=== PATIENT | female | born 1940 | race Hispanic/Latino ===

== ENCOUNTER → 2017-12-12 | Outpatient (CLI) | payer MEDICARE ==
[~2017-12-12] MED LIST: GLYBURID-METFO1 EAC3 MT; Z.0.ALLOPURINOL100 M MT; Z.0.JANUVIA100 MG MT; Z.0.LISINOPRIL40 MG MT; Z.0.SIMVASTATIN20 MG MT; [UNRECOGNIZED DRUG - OTHER] MT
--- NOTE | 2017-12-12 12:47 | Diagnostic Imaging Report ---
PROCEDURE: Frontal and lateral views of the chest. COMPARISON: 10/08/17 INDICATIONS: PNEUMONIA, COUGH FINDINGS: Lines/tubes: None. Lungs: The lungs are well inflated. Increased interstitial markings. Pleura: There is no pleural effusion or pneumothorax. Heart and mediastinum: The heart and the mediastinum are normal. Aorta is calcified and mildly tortuous. Bones: No acute bony abnormality. Degenerative changes of spine. IMPRESSION: Increased interstitial lung markings, probably chronic/fibrotic changes. Underlying infiltrate especially in the lower lung babb cannot be entirely excluded. Dictated by: Jv Moon M.D. on 12/12/2017 at 12:57 Electronically approved by: Jv Moon M.D. on 12/12/2017 at 12:57
== END ==
LOC: RAD 12:07
PROVIDERS: ATTEND Internal Medicine
DX: J18.9 Pneumonia, unspecified organism (principal)
CPT/HCPCS: 71046

== ENCOUNTER → 2018-02-19 | Outpatient (CLI) | payer MEDICARE ==
--- NOTE | 2018-02-19 13:48 | Diagnostic Imaging Report ---
PROCEDURE:X-RAY MODIFIED BARIUM SWALLOW COMPARISON:None. INDICATIONS:Dysphagia, possible aspiration and coughing DISCUSSION:Fluoroscopic examination was performed in conjunction with speech pathology, during swallowing of a variety of thin and thick liquid consistencies. The Radiologist was in attendance. Multiple episodes of coughing were encountered. There is some pooling in the vallecula. No penetration or aspiration was noted. Please see the full report provided by the Speech Pathologist. Fluoroscopy time: 1.5 minutes Total dose: 7.30 mGy CONCLUSION:No penetration or aspiration. Please see the report from speech pathology for complete details. Mamadou Randolph D.O. Dictated by: Mamadou Randolph D.O. on 02/19/2018 at 13:49 Electronically approved by: Mamadou Randolph D.O. on 02/19/2018 at 13:49
== END ==
LOC: DX 12:21
PROVIDERS: ATTEND Internal Medicine Critical Care Medicine
DX: R05 Cough (principal); R06.00 Dyspnea, unspecified; R13.10 Dysphagia, unspecified
CPT/HCPCS: 74230; 92611; G8996; G8997; G8998

== ENCOUNTER → 2018-04-12 | Outpatient (CLI) | payer MEDICARE ==
--- NOTE | 2018-04-12 12:59 | Diagnostic Imaging Report ---
PROCEDURE: Frontal and lateral views of the chest. COMPARISON: 12/12/2017 INDICATIONS: COUGH, PNEUMONIA, SHORTNESS OF BREATH FINDINGS: Lines/tubes: None. Lungs: Diffuse interstitial opacities, particularly in the lung bases, unchanged. Lung volumes are low. Pleura: There is no pleural effusion or pneumothorax. Heart and mediastinum: The heart and the mediastinum are normal. Bones: No acute bony abnormality. IMPRESSION: Basilar predominant interstitial opacities with low lung volumes. The finding suggest fibrosis. This patient may benefit from a high resolution CT of the chest. No new consolidation. Dictated by: Presley Benitez M.D. on 04/12/2018 at 13:02 Electronically approved by: Presley Benitez M.D. on 04/12/2018 at 13:02
== END ==
LOC: RAD 11:43
PROVIDERS: ATTEND Internal Medicine
DX: J18.9 Pneumonia, unspecified organism (principal)
CPT/HCPCS: 71046

== ENCOUNTER → 2018-05-03 | Outpatient (CLI) | payer MEDICARE ==
--- NOTE | 2018-05-03 09:57 | Diagnostic Imaging Report ---
EXAMINATION: MRI of the brain without contrast. HISTORY: Memory loss COMPARISON: Head CT on 10/08/2017 TECHNIQUE: Sagittal T1 ultrathin slice with coronal and axial reformations; axial DWI, T2, FLAIR, T2 gradient echo. IMAGE QUALITY: Adequate. FINDINGS: DEMENTIA: Structural lesion: No intra- or extra-axial mass or hematoma. Ventricles: No hydrocephalus. Estrada matter signal intensity: Cortex: Unremarkable. Basal ganglia: Unremarkable. Thalami: Unremarkable. White matter signal intensity: Cerebral: Few scattered white matter T2 and FLAIR hyperintense foci, most likely nonspecific unremarkable ischemic changes, within normal limits for patient's age Brainstem: Unremarkable. Mamillary bodies/fornices and hippocampi: No atrophy or abnormal signal. Microhemorrhages: None. Atrophy: Global: Symmetric. Focal: Slightly disproportion bilateral parietal cortical volume loss. Otherwise no disproportionate lobar, hippocampal, mesencephalic, pontine, or cerebellar atrophy. Vessels: Expected flow voids present in the major arteries and dural sinuses. Sella: Unremarkable. OTHER: Subarachnoid spaces: No abnormal signal intensity. Foramen magnum: Unremarkable. Skull: Unremarkable. Paranasal / mastoid sinuses: Persistent opacification of the right maxillary sinus, otherwise clear IMPRESSION: 1. Mild age appropriate chronic microvascular ischemic changes. 2. Slightly disproportionate bilateral parietal cortical volume loss. Signed by: Dr. Anaid Goel M.D. on 05/03/2018 9:53 AM
--- NOTE | 2018-05-03 10:20 | Diagnostic Imaging Report ---
PROCEDURE: CT CHEST WITHOUT CONTRAST CT scan of the chest WITHOUT intravenous contrast, using standard protocol. TECHNIQUE: The chest was scanned utilizing a multidetector helical scanner from the apex to the level of the adrenal glands. No IV contrast was administered because of referring physician request. Coronal and sagittal multiplanar reformations were obtained. COMPARISON: None. INDICATIONS: LOWER LOBE INTERSTITIAL INFILTRATES FINDINGS: Lines/tubes: None. Lungs and Airways: Juxtapleural predominant groundglass opacities, reticulation, and interlobular septal thickening most prominent in the lung bases. No honeycombing. Mild associated bronchiectasis. Pleura: The pleural spaces are clear. Heart and mediastinum: Visualized portions of the thyroid gland appear normal. Scattered mildly prominent hilar and mediastinal lymph nodes without overt lymphadenopathy. No axillary lymphadenopathy. No ectasia or aneurysmal dilatation of the thoracic aorta. Atherosclerotic calcification of the aorta, great vessel origins, and [place] coronary arteries. No pericardial effusion. Small hiatal hernia. Soft tissues: No focal soft tissue abnormalities. Abdomen: Visualized portions of the liver, spleen, pancreas, adrenals, and kidneys are notable only for an exophytic lesion projecting from the upper pole of the left kidney, average internal attenuation 34 Hounsfield units. Bones: No osseous destructive lesions. Multilevel degenerative disc changes of the thoracic spine. Bilateral cervical ribs. IMPRESSION: Pulmonary findings compatible with nonspecific interstitial pneumonia (NSIP). This may be idiopathic, or associated with collagen vascular disease or drug toxicities (amiodarone, bleomycin). Atherosclerotic vascular disease. Mildly hyperattenuating partially visualized exophytic lesion projecting from the left kidney may represent a hyperdense/proteinaceous cyst or solid mass. Further evaluation with renal ultrasound is suggested. Dictated by: Jim Corey M.D. on 05/03/2018 at 10:23 Electronically approved by: Jim Corey M.D. on 05/03/2018 at 10:23
== END ==
LOC: MRI 08:37
PROVIDERS: ATTEND Internal Medicine Critical Care Medicine
DX: F01.50 Vascular dementia, unspecified severity, without behavioral disturbance, psychotic disturbance, mood disturbance, and anxiety (principal); R91.8 Other nonspecific abnormal finding of lung field
CPT/HCPCS: 70551; 71250

== ENCOUNTER → 2018-05-15 | Outpatient (CLI) | payer MEDICARE ==
--- NOTE | 2018-05-15 15:30 | Diagnostic Imaging Report ---
PROCEDURE:US RETROPERITONEAL ( KIDNEY ). COMPARISON:None. INDICATIONS:CHRONIC KIDNEY DISEASE STAGE II TECHNIQUE: Nunn-scale and color sonographic images of the bilateral kidneys and bladder where obtained in transverse and longitudinal planes. FINDINGS: Bilateral Kidneys: The right kidney measures up to 10.9 cm and the left kidney measures up to 10.4 cm. No evidence of hydronephrosis or solid mass lesions. The renal echogenicity is unremarkable. No evidence of renal stone. Bladder: No stone is visualized. Right ureteral jet is present. Left ureteral jet is not well demonstrated. Residual urine is seen post voiding per technologist report. CONCLUSION: Unremarkable renal ultrasound. No evidence of hydronephrosis or stone. Residual urine seen in the bladder post voiding per technologist report. Dictated by: JOAQUIM LOZOYA M.D. on 05/15/2018 at 15:35 Electronically approved by: JOAQUIM LOZOYA M.D. on 05/15/2018 at 15:35
--- NOTE | 2018-05-15 15:44 | Diagnostic Imaging Report ---
PROCEDURE:Urinary Bladder Ultrasound COMPARISON:None. INDICATIONS:CHRONIC KIDNEY DISEASE STAGE II CONCLUSION: Please refer to "US RETROPERITONEAL" performed at the same date and time for full dictated report. Dictated by: JOAQUIM LOZOYA M.D. on 05/15/2018 at 15:48 Electronically approved by: JOAQUIM LOZOYA M.D. on 05/15/2018 at 15:48
== END ==
LOC: US 14:05
PROVIDERS: ATTEND Internal Medicine Nephrology
DX: N18.2 Chronic kidney disease, stage 2 (mild) (principal)
CPT/HCPCS: 76770; 76857

== ENCOUNTER → 2018-07-24 | Outpatient (CLI) | payer MEDICARE ==
--- NOTE | 2018-07-24 18:21 | Diagnostic Imaging Report ---
CT CHEST WITHOUT CONTRAST HISTORY: Interstitial lung disease, shortness of breath, cough, history of pneumonia COMPARISON: None available TECHNIQUE: CT scan of the chest WITHOUT intravenous contrast, using standard protocol. The chest was scanned utilizing a multidetector helical scanner from the apex to the level of the adrenal glands. Coronal and sagittal reformats are provided. IV CONTRAST: None, which limits evaluation of the vascular structures, mediastinum and soft tissues. RADIATION DOSE: Total DLP: 511.62 mGy*cm Dose modulation, iterative reconstruction, and/or weight based adjustment of the mA/kV was utilized to reduce the radiation dose to as low as reasonably achievable. COMPLICATIONS: None FINDINGS: Lines/tubes: None. Lungs and Airways: Diffusely increased pulmonary interstitial markings, predominantly in a peripheral distribution. Mild bronchiectasis. A few scattered areas of peripheral as a continuation. No evidence of airspace consolidation, honeycombing, suspicious nodules or cysts. Minimal dependent atelectasis. Pleura: The pleural spaces are clear. Heart and mediastinum: The thyroid gland is normal. The heart and pericardium are within normal limits. Abdomen: Limited nonenhanced views of the upper abdomen. A small hiatal hernia. Mild diffuse pancreatic parenchymal atrophy. A 1.3 cm soft tissue density posterior to the spleen, compatible with a small splenule. Lymph nodes: Multiple nonspecific subcentimeter lymph nodes without pathologic enlargement. Vessels: Scattered atherosclerotic vascular calcifications, including the coronary arteries. Bones: No acute osseous lesion. Accentuation of the thoracic kyphosis. Multilevel anterior flowing syndesmophytes with relative preservation of the disc spaces, compatible with DISH (Diffuse idiopathic skeletal hyperostosis). Soft tissues: Otherwise, unremarkable. IMPRESSION: 1. Fibrotic lung changes with mild bronchiectasis and areas of mosaic attenuation. This can be better characterized via a follow-up dedicated CT of the chest without contrast (high resolution/interstitial lung protocol). 2. Coronary atherosclerosis. 3. Small hiatal hernia. Signed by: Dr. Travis Andrews D.O., M.M.M. on 07/24/2018 6:16 PM
== END ==
LOC: CT 16:59
PROVIDERS: ATTEND Internal Medicine Critical Care Medicine
DX: J84.9 Interstitial pulmonary disease, unspecified (principal)
CPT/HCPCS: 71250

== ENCOUNTER → 2019-07-25 | Outpatient (CLI) | payer MEDICARE ==
--- NOTE | 2019-07-25 14:48 | Diagnostic Imaging Report ---
Ultrasound of the Kidneys, 07/25/2019. Clinical History: Chronic kidney disease stage II. Discussion: Sonographic evaluation of the kidneys is performed. Pre and post void images of the bladder were also obtained. Right kidney: 10.1 cm in length, normal in size, with cortical thickness of 1.6 cm. Normal cortical echogenicity. No mass. No shadowing calculus. No hydronephrosis. Left kidney: 10.6 cm in length, normal in size, with cortical thickness of 1.4 cm. Normal cortical echogenicity. No mass. No shadowing calculus. No hydronephrosis. Limited Doppler evaluation demonstrates normal color Doppler flow within bilateral renal liliane. Fluid: No perinephric fluid. Bladder: Bilateral ureteral jets are visualized. Prevoid bladder volume is 122.1 mL. Post void bladder volume is 46.8 mL. IMPRESSION: Normal ultrasound of the kidneys and bladder. Signed by: Aston Hodge MD on 07/25/2019 2:45 PM
== END ==
LOC: US 13:28
PROVIDERS: ATTEND Internal Medicine Nephrology
DX: N18.2 Chronic kidney disease, stage 2 (mild) (principal)
CPT/HCPCS: 76770; 76857

== ENCOUNTER → 2019-10-17 | Day surgery (SDC) | payer MEDICARE ==
[~2019-10-17] MED LIST changes: +ALBUTEROL0.63 MG/3 NEB; +AMLODIPINE BESYL5 MG PO; +AZATHIOPRINE50 MG PO; +ESBRIET801 MG PO; +HYOSCYAMINE 0.125 MG TAB ONE; +LOSARTAN POTASS25 MG PO; +METFORMIN HCL500 MG PO; +METOPROLOL SUCC50 MG PO; +OMEPRAZOLE40 MG PO; +PREDNISONE5 MG PO; +PROPOFOL IV EMULSION 10 MG/ML 20 ML VIAL ONE; +PROPOFOL IV EMULSION 10 MG/ML 50 ML VIAL ONE; +SYMBICORT 16010.2 GM INH; +TESSALON PERLE100 MG PO; +VITAMIN B12 INJ; -Z.0.JANUVIA100 MG MT; +Z.0.JANUVIA100 MG PO
[2019-10-17 20:00] VITALS: BP 133/70
[2019-10-17 21:36] LABS: WBC,FECAL (FECAL LACTOFERRIN) NEGATIVE (NEGATIVE)
--- NOTE | 2019-10-18 01:20 | Operative Report ---
DATE OF PROCEDURE: 10/17/2019 SURGEON: Chriss Mendoza MD PROCEDURE: EGD with biopsies and colonoscopy with biopsies. ADDITIONAL REFERRING PHYSICIAN: Dr. Javan Pappas. INDICATIONS FOR EGD: Acid reflux. INDICATIONS COLONOSCOPY: Chronic diarrhea and weight loss. MEDICATIONS: The patient was done under MAC, please see anesthesiologist's note. PROCEDURE IN DETAIL: With the patient in left lateral decubitus position, a flexible fiberoptic Olympus gastroscope was introduced into the esophagus under direct visualization without any difficulty. There was some patchy erythema noted in distal esophagus. The scope was then advanced with ease into the stomach traversing a moderate-sized hiatal hernia. Mucosa overlying the antrum and the body revealed some patchy areas of erythema and low-grade to moderate edema and biopsies were obtained and sent to stain for H pylori. There was some mild atrophic changes in the distal body of the stomach and that was biopsied to rule out atrophic gastritis. The pylorus was of normal contour and shape, and was intubated with ease and the scope was advanced all the way to the second portion of the duodenum. The scope was then withdrawn slowly. Mucosa overlying the proximal second portion and duodenal bulb grossly appeared to be within normal limits. Biopsies were obtained to rule out sprue. The scope was then withdrawn back into the stomach and retroflexed, and mucosa overlying the fundus appeared to be within normal limits. The previously described hiatal hernia was also noted in the retroflexed position. The scope was then straightened out and it was subsequently withdrawn and the patient tolerated procedure well. IMPRESSION: 1. Distal esophagitis, mild. 2. Moderate-sized hiatal hernia. 3. Gastritis, biopsied. Biopsies sent to stain for H pylori. 4. Rule out sprue. PLAN: Follow up histology. Increase omeprazole to 40 mg one p.o. a.c. b.i.d. The patient was then turned around after adequate lubrication of the anal canal. A flexible fiberoptic Olympus colonoscope was inserted into the rectum with ease and advanced all the way to the cecum. Mucosa overlying the cecum appeared to be within normal limits. The ileocecal valve was intubated and the scope was advanced into the terminal ileum. Biopsies were obtained. The scope was then withdrawn back into the colon. It was then withdrawn slowly and mucosa overlying the ascending, transverse, descending, sigmoid, and rectum revealed some patchy mild inflammatory changes. Random biopsies were obtained. Also, there was some scattered diverticular disease noted. The scope was then retroflexed into the distal rectum and moderate-sized internal hemorrhoids were noted, none of which was actively bleeding. The scope was then straightened out and it was subsequently withdrawn. After securing an adequate stool specimen, that was sent for the appropriate stool studies. The patient tolerated the procedure well. IMPRESSION: 1. Mild patchy colitis, random biopsies obtained. 2. Diverticulosis. 3. Internal hemorrhoids, none actively bleeding. PLAN: Follow up histology. Follow up stool studies. Initiate Bentyl 20 mg one p.o. t.i.d. Chriss Mendoza MD [facility] [place] /[id number] cc: Javan Cabrera MD
[2019-10-18 14:54] LABS: C DIFFICILE TOXIN A&B AMP PROB NEGATIVE (NEGATIVE)
--- OUTSIDE RECORDS SUMMARY | 2019-10-24 11:52 | XMS REPORT ---
Author Author [facility] Address Unknown Phone Unavailable Care Team Providers Care District Captain Name Role Phone MICHAEL ARCOS Unavailable Unavailable VIVIOTTONIEL SYED Unavailable Unavailable ORAHOOD, MONTE Unavailable Unavailable SWEET, A LAIRD Unavailable Unavailable Payers Payer Name Policy Type Policy Number Effective Date Expiration Date Problems This patient has no known problems. Allergies, Adverse Reactions, Alerts Allergy Name Allergy Type Status Severity Reaction(s) Onset Date Inactive Date Treating Clinician Comments No Known Allergies DA Active U 2013-05-26 00:00:00 Medications This patient has no known medications. Encounters Start Date/Time End Date/Time Encounter Type Admission Type Attending Clinicians Care Facility Care Department Encounter ID 2019-04-15 09:06:00 2019-04-15 09:06:00 Outpatient [facility] [id number] Results Test Description Test Time Test Comments Text Results Atomic Results Result Comments US RENAL RETROPERITONEAL COMP 2019-07-25 14:42:00 [facility] [address] [place] [address] Patient Name: VEDA ADAMS MR #: [id number] : 1940 Age/Sex: 79/F Req #: [id number] Adm Physician: Ordered by: MICHAEL ARCOS MD Report #: [id number] Location: US Room/Bed: Procedure: [id number] US/US RENAL RETROPERITONEAL COMP Exam Date: 07/25/19 Exam Time: 1356 REPORT STATUS: Signed Ultrasound of the Kidneys, 07/25/2019. Clinical History: Chronic kidney disease stage II. Discussion: Sonographic evaluation of the kidneys is performed. Pre and post void images of the bladder were also obtained. Right kidney: 10.1 cm in length, normal in size, with cortical thickness of 1.6 cm. Normal cortical echogenicity. No mass. No shadowing calculus. No hydronephrosis. Left kidney: 10.6 cm in length, normal in size, with cortical thickness of 1.4 cm. Normal cortical echogenicity. No mass. No shadowing calculus. No hydronephrosis. Limited Doppler evaluation demonstrates normal color Doppler flow within bilateral renal liliane. Fluid: No perinephric fluid. Bladder: Bilateral ureteral jets are visualized. Prevoid bladder volume is 122.1 mL. Post void bladder volume is 46.8 mL. IMPRESSION: Normal ultrasound of the kidneys and bladder. Signed by: Aston Ortiz MD on 07/25/2019 2:45 PM Dictated By: ASTON ORTIZ MD 1445 Transcribed By: RAULITO on 07/25/19 1445 COPY TO: MICHAEL ARCOS MD US PELVIC (NON OB) MELGAR OR F/U 2019-07-25 14:42:00 [place] [address] Patient Name: VEDA ADAMS MR #: [id number] : 1940 Age/Sex: 79/F Req #: [id number] Adm Physician: Ordered by: MICHAEL ARCOS MD Report #: [id number] Location: US Room/Bed: Procedure: [id number] US/US PELVIC (NON OB) MELGAR OR F/U Exam Date: 07/25/19 Exam Time: 1356 REPORT STATUS: Signed Ultrasound of the Kidneys, 07/25/2019. Clinical History: Chronic kidney disease stage II. Discussion: Sonographic evaluation of the kidneys is performed. Pre and post void images of the bladder were also obtained. Right kidney: 10.1 cm in length, normal in size, with cortical thickness of 1.6 cm. Normal cortical echogenicity. No mass. No shadowing calculus. No hydronephrosis. Left kidney: 10.6 cm in length, normal in size, with cortical thickness of 1.4 cm. Normal cortical echogenicity. No mass. No shadowing calculus. No hydronephrosis. Limited Doppler evaluation demonstrates normal color Doppler flow within bilateral renal liliane. Fluid: No perinephric fluid. Bladder: Bilateral ureteral jets are visualized. Prevoid bladder volume is 122.1 mL. Post void bladder volume is 46.8 mL. IMPRESSION: Normal ultrasound of the kidneys and bladder. Signed by: Aston Ortiz MD on 07/25/2019 2:45 PM Dictated By: ASTON ORTIZ MD 2938 Transcribed By: RAULITO on 07/25/19 3052 COPY TO: MICHAEL ARCOS MD LUNG,BIOPSY 2018-08-21 14:43:00 RUN DATE: 08/21/18 [facility] PAGE 1 RUN TIME: 1444 Specimen Inquiry RUN USER: INTERFACE PATIENT: VEDA ADAMS [place] [facility] [place] #: [id number] AGE/SX: 78/F ROOM: RE08/19/18[facility] DR: Ottoniel Enamorado MD : [birth year] BED: DIS: STATUS: [facility] TLOC: SPEC #: [id number] RECD: 08/19/18 STATUS: ARVIND BURCIAGA #: [id number] MARILIN: 08/19/18 [facility] DR: Ottoniel Enamorado MD ENTERED: 08/19/18 SP TYPE: LUNG BX OTHR DR: Sapna Cabrera MD ORDERED: GROSS COPIES TO: Ottoniel Enamorado MD [address] [place] [address] Sapna Cabrera MD [address] [place] [address] PROCEDURES: GROSS (08/19/18) TISSUES: RIGHT LOWER LOBE OF LUNG, NOS - BX CLINICAL HISTORY COLLECTION DATE: 08/19/18 PULMONARY FIBROSIS COMMENT Multiple levels of the tissue are examined. Sections show small biopsies of bronchial mucosa with an intact epithelial lining that is unremarkable in appearance. A small amount of alveolar parenchyma is present s howing mildly increased macrophages within the alveolar spaces. Significantly increased acute or chronic inflammation is not noted. Although significant fibrosis is not noted, interpretation is limited by the small amount of alveolar parenchyma present in the tissue sample. Features diagnostic of malignancy are not identified. Clinical correlation is recommended. Intradepartmental consultation: DMW FINAL DIAGNOSIS Lung, right lower lobe, endobronchial biopsy: BRONCHIAL MUCOSA WITH FOCALLY INCREASED SMOOTH MUSCLE FIBERS SMALL AREA OF ALVEOLAR PARENCHYMA WITH MILDLY INCREASED MACROPHAGES IN ALVEOLAR SPACES MINIMAL CHRONIC INFLAMMATION PRESENT NO ACUTE INFLAMMATORY INFILTRATE PRESENT CONTINUED ON NEXT PAGE RUN DATE: 08/21/18 [facility] PAGE 2 RUN TIME: 1444 Specimen Inquiry RUN USER: INTERFACE SPEC #: [id number] PATIENT: VEDA ADAMS #[id number] (Continued) FINAL DIAGNOSIS (Continued) NO GRANULOMAS OR AREAS OF NECROSIS PRESENT NEGATIVE FOR MALIGNANCY RRB/sm D 90615 MACROSCOPIC The specimen is received in formalin, labeled with the patient's name and identified as "RLL bx". The specimen consists of virk biopsy material measuring 0.3 cm in aggregate, submitted for histologic evaluation. GROSS PERFORMED AT [facility] [address] [place] [address] (p)[phone] MICROSCOPIC MICROSCOPIC PERFORMED AT [facility] All of the stains, including any controls performed, stain appropriately. [facility] [address] [place] [address] [phone] PERFORMING SITE Diagnosis performed at: [facility], [place] [address] [place] [address] Signed SIGNATURE ON FILE Otoniel Lala 08/21/[address] CHEST WO 2018-07-24 18:03:00 [place] [address] Patient Name: VEDA ADAMS MR #: [id number] : 1940 Age/Sex: 78/F Req #: [id number] Adm Physician: Ordered by: OTTONIEL ENAMORADO MD Report #: [id number] Location: CT Room/Bed: Procedure: [id number] CT/CT CHEST WO Exam Date: 07/24/18 Exam Time: 1745 REPORT STATUS: Signed CT CHEST WITHOUT CONTRAST HISTORY: Interstitial lung disease, shortness of breath, cough, history of pneumonia COMPARISON: None available TECHNIQUE: CT scan of the chest WITHOUT intravenous contrast, using standard protocol. The chest was scanned utilizing a multidetector helical scanner from the apex to the level of the adrenal glands. Coronal and sagittal reformats are provided. IV CONTRAST: None, which limits evaluation of the vascular structures, mediastinum and soft tissues. RADIATION DOSE: Total DLP: 511.62 mGy*cm Dose modulation, iterative reconstruction, and/or weight based adjustment of the mA/kV was utilized to reduce the radiation dose to as low as reasonably achievable. COMPLICATIONS: None FINDINGS: Lines/tubes: None. Lungs and Airways: Diffusely increased pulmonary interstitial markings, predominantly in a peripheral distribution. Mild bronchiectasis. A few scattered areas of peripheral as a continuation. No evidence of airspace consolidation, honeycombing, suspicious nodules or cysts. Minimal dependent atelectasis. Pleura: The pleural spaces are clear. Heart and mediastinum: The thyroid gland is normal. The heart and pericardium are within normal limits. Abdomen: Limited nonenhanced views of the upper abdomen. A small hiatal hernia. Mild diffuse pancreatic parenchymal atrophy. A 1.3 cm soft tissue density posterior to the spleen, compatible with a small splenule. Lymph nodes: Multiple nonspecific subcentimeter lymph nodes without pathologic enlargement. Vessels: Scattered atherosclerotic vascular calcifications, including the coronary arteries. Bones: No acute osseous lesion. Accentuation of the thoracic kyphosis. Multilevel anterior flowing syndesmophytes with relative preservation of the disc spaces, compatible with DISH (Diffuse idiopathic skeletal hyperostosis). Soft tissues: Otherwise, unremarkable. IMPRESSION: 1. Fibrotic lung changes with mild bronchiectasis and areas of mosaic attenuation. This can be better characterized via a follow-up dedicated CT of the chest without contrast (high resolution/interstitial lung protocol). 2. Coronary atherosclerosis. 3. Small hiatal hernia. Signed by: Dr. Travis Shi D.O., M.M.M. on 07/24/2018 6:16 PM Dictated By: TRAVIS SHI DO 15 Transcribed By: RAULITO on 07/24/181815 COPY TO: OTTONIEL ENAMORADO MD US PELVIC (NON OB) MELGAR OR F/U 2018-05-15 15:48:00 [place] [address] Patient Name: VEDA ADAMS MR #: [id number] : 1940 Age/Sex: 78/F Req #: [id number] Adm Physician: Ordered by: MICHAEL ARCOS MD Report #: [id number] Location: Room/Bed: Procedure: [id number] US/US PELVIC (NON OB) MELGAR OR F/U Exam Date: Exam Time: REPORT STATUS: Signed PROCEDURE: Urinary Bladder Ultrasound COMPARISON: None. INDICATIONS: CHRONIC KIDNEY DISEASE STAGE II CONCLUSION: Please refer to "US RETROPERITONEAL" performed at the same date and time for full dictated report. Dictated by: JOAQUIM LOZOYA M.D. on 05/15/2018 at 15:48 Electronically approved by: JOAQUIM LOZOYA M.D. on 05/15/2018 at 15:48 Dictated By: JOAQUIM LOZOYA MD 1548 Transcribed By: RINA on 05/15/181547 COPY TO: MICHAEL ARCOS MD US RENAL RETROPERITONEAL COMP 2018-05-15 15:35:00 [place] [address] Patient Name: VEDA ADAMS MR #: [id number] : 1940 Age/Sex: 78/F Req #: [id number] Adm Physician: Ordered by: MICHAEL ARCOS MD Report #: [id number] Location: Room/Bed: Procedure: [id number] US/US RENAL RETROPERITONEAL COMP Exam Date: Exam Time: REPORT STATUS: Signed PROCEDURE: US RETROPERITONEAL ( KIDNEY ). COMPARISON: None. INDICATIONS: CHRONIC KIDNEY DISEASE STAGE II TECHNIQUE: Nunn-scale and color sonographic images of the bilateral kidneys and bladder where obtained in transverse and longitudinal planes. FINDINGS: Bilateral Kidneys: The right kidney measures up to 10.9 cm and the left kidney measures up to 10.4 cm. No evidence of hydronephrosis or solid mass lesions. The renal echogenicity is unremarkable. No evidence of renal stone. Bladder: No stone is visualized. Right ureteral jet is present. Left ureteral jet is not well demonstrated. Residual urine is seen post voiding per technologist report. CONCLUSION: Unremarkable renal ultrasound. No evidence of hydronephrosis or stone. Residual urine seen in the bladder post voiding per technologist report. Dictated by: JOAQUIM LOZOYA M.D. on 05/15/2018 at 15:35 Electronically approved by: JOAQUIM LOZOYA M.D. on 05/15/2018 at 15:35 Dictated By: JOAQUIM LOZOYA MD 1535 Transcribed By: RINA on 05/15/18 1535 COPY TO: MICHAEL ARCOS MD CT CHEST WO 2018-05-03 10:23:00 [place] [address] Patient Name: VEDA ADAMS MR #: [id number] : 1940 Age/Sex: 78/F Req #: [id number] Adm Physician: Ordered by: OTTONIEL ENAMORADO MD Report #: [id number] Location: MRI Room/Bed: Procedure: [id number] CT/CT CHEST WO Exam Date: 05/03/18 Exam Time: 929 REPORT STATUS: Signed PROCEDURE: CT CHEST WITHOUT CONTRAST CT scan of the chest WITHOUT intravenous contrast, using standard protocol. TECHNIQUE: The chest was scanned utilizing a multidetector helical scanner from the apex to the level of the adrenal glands. No IV contrast was administered because of referring physician request. Coronal and sagittal multiplanar reformations were obtained. COMPARISON: None. INDICATIONS: LOWER LOBE INTERSTITIAL INFILTRATES FINDINGS: Lines/tubes: None. Lungs and Airways: Juxtapleural predominant groundglass opacities, reticulation, and interlobular septal thickening most prominent in the lung bases. No honeycombing. Mild associated bronchiectasis. Pleura: The pleural spaces are clear. Heart and mediastinum: Visualized portions of the thyroid gland appear normal. Scattered mildly prominent hilar and mediastinal lymph nodes without overt lymphadenopathy. No axillary lymphadenopathy. No ectasia or aneurysmal dilatation of the thoracic aorta. Atherosclerotic calcification of the aorta, great vessel origins, and prairie band coronary arteries. No pericardial effusion. Small hiatal hernia. Soft tissues: No focal soft tissue abnormalities. Abdomen: Visualized portions of the liver, spleen, pancreas, adrenals, and kidneys are notable only for an exophytic lesion projecting from the upper pole of the left kidney, average internal atte nuation 34 Hounsfield units. Bones: No osseous destructive lesions. Multilevel degenerative disc changes of the thoracic spine. Bilateral cervical ribs. IMPRESSION: Pulmonary findings compatible with nonspecific interstitial pneumonia (NSIP). This may be idiopathic, or associated with collagen vascular disease or drug toxicities (amiodarone, bleomycin). Atherosclerotic vascular disease. Mildly hyperattenuating partially visualized exophytic lesion projecting from the left kidney may represent a hyperdense/proteinaceous cyst or solid mass. Further evaluation with renal ultrasound is suggested. Dictated by: Heather Corey M.D. on 05/03/2018 at 10:23 Electronically approved by: Heather Corey M.D. on 05/03/2018 at 10:23 Dictated By: HEATHER COREY MD 1023 Transcribed By: RINA on 05/03/18 1023 COPY TO: OTTONIEL ENAMORADO MD MRI BRAIN WO 2018-05-03 09:50:00 [place] [address] Patient Name: VEDA ADAMS MR #: [id number] : 1940 Age/Sex: 78/F Req #: [id number] Adm Physician: Ordered by: SAPNA CABRERA MD Report #: [id number] Location: MRI Room/Bed: Procedure: [id number] MRI/MRI BRAIN WO Exam Date: Exam Time: REPORT STATUS: Signed EXAMINATION: MRI of the brain without contrast. HISTORY: Memory loss COMPARISON: Head CT on 10/08/2017 TECHNIQUE: Sagittal T1 ultrathin slice with coronal and axial reformations; axial DWI, T2, FLAIR, T2 gradient echo. IMAGE QUALITY: Adequate. FINDINGS: DEMENTIA: Structural lesion: No intra- or extra-axial mass or hematoma. Ventricles: No hydrocephalus. Estrada matter signal intensity: Cortex: Unremarkable. Basal ganglia: Unremarkable. Thalami: Unremarkable. White matter signal intensity: Cerebral: Few scattered white matter T2 and FLAIR hyperintense foci, most likely nonspecific unremarkable ischemic changes, within normal limits for patient's age Brainstem: Unremarkable. Mamillary bodies/fornices and hippocampi: No atrophy or abnormal signal. Microhemorrhages: None. Atrophy: Global: Symmetric. Focal: Slightly disproportion bilateral parietal cortical volume loss. Otherwise no disproportionate lobar, hippocampal, mesencephalic, pontine, or cerebellar atrophy. Vessels: Expected flow voids present in the major arteries and dural sinuses. Sella: Unremarkable. OTHER: Subarachnoid spaces: No abnormal signal intensity. Foramen magnum: Unremarkable. Skull: Unremarkable. Paranasal / mastoid sinuses: Persistent opacification of the right maxillary sinus, otherwise clear IMPRESSION: 1. Mild age appropriate chronic microvascular ischemic changes. 2. Slightly disproportionate bilateral parietal cortical volume loss. Signed by: Dr. Andrea Goel M.D. on 05/03/2018 9:53 AM Dictated By: ANDREA GOEL MD 09 Transcribed By: RENARD LAYNE on 05/03/18 09 COPY TO: SAPNA CABRERA MD CHEST 2 VIEWS 2018-04-12 13:02:00 [place] [address] Patient Name: VEDA ADAMS MR #: [id number] : 1940 Age/Sex: 78/F Req #: [id number] Adm Physician: Ordered by: SAPNA CABRERA MD Report #: [id number] Location: [facility] Room/Bed: Procedure: [id number] DX/CHEST 2 VIEWS Exam Date: 04/12/18 Exam Time: 1212 REPORT STATUS: Signed PROCEDURE: Frontal and lateral views of the chest. COMPARISON: 12/12/2017 INDICATIONS: COUGH, PNEUMONIA, SHORTNESS OF BREATH FINDINGS: Lines/tubes: None. Lungs: Diffuse interstitial opacities, particularly in the lung bases, unchanged. Lung volumes are low. Pleura: There is no pleural effusion or pneumothorax. Heart and mediastinum: The heart and the mediastinum are normal. Bones: No acute bony abnormality. IMPRESSION: Basilar predominant interstitial opacities with low lung volumes. The finding suggest fibrosis. This patient may benefit from a high resolution CT of the chest. No new consolidation. Dictated by: Preethi Benitez M.D. on 04/12/2018 at 13:02 Electronically approved by: Preethi Benitez M.D. on 04/12/2018 at 13:02 Dictated By: PREETHI BENITEZ MD 1302 Transcribed By: RINA on 04/12/18 1302 COPY TO: SAPNA CABRERA MD MODIFIED BA. SWALLOW [place] [address] Patient Name: VEDA ADAMS MR #: [id number] : 1940 Age/Sex: 77/F Req #: [id number] Adm Physician: Ordered by: OTTONIEL ENAMORADO MD Report #: [id number] Location: DX Room/Bed: Procedure: [id number] DX/MODIFIED BA. SWALLOW Exam Date: 02/19/18 Exam Time: 1300 REPORT STATUS: Signed PROCEDURE: X-RAY MODIFIED BARIUM SWALLOW COMPARISON: None. INDICATIONS: Dysphagia, possible aspiration and coughing DISCUSSION: Fluoroscopic examination was performed in conjunction with speech pathology, during swallowing of a variety of thin and thick liquid consistencies. The Radiologist was in attendance. Multiple episodes of coughing were encountered. There is some pooling in the vallecula. No penetration or aspiration was noted. Please see the full report provided by the Speech Pathologist. Fluoroscopy time: 1.5 minutes Total dose: 7.30 mGy CONCLUSION: No penetration or aspiration. Please see the report from speech pathology for complete details. Mamadou Stone D.O. Dictated by: Mamadou Stone D.O. on 02/19/2018 at 13:49 Electronically approved by: Mamadou Stone D.O. on 02/19/2018 at 13:49 Dictated By: MAMADOU STONE DO 1349 Transcribed By: RINA on 02/19/18 1349 COPY TO: OTTONIEL ENAMORADO MD CHEST 2 VIEWS [place] [address] Patient Name: VEDA ADAMS MR #: [id number] : 1940 Age/Sex: 77/F Req #: [id number] Adm Physician: Ordered by: SAPNA CABRERA MD Report #: [id number] Location: RAD Room/Bed: Procedure: [id number] DX/CHEST 2 VIEWS Exam Date: 12/12/17 Exam Time: 1220 REPORT STATUS: Signed PROCEDURE: Frontal and lateral views of the chest. COMPARISON: 10/08/17 INDICATIONS: PNEUMONIA, COUGH FINDINGS: Lines/tubes: None. Lungs: The lungs are well inflated. Increased interstitial markings. Pl eura: There is no pleural effusion or pneumothorax. Heart and mediastinum: The heart and the mediastinum are normal. Aorta is calcified and mildly tortuous. Bones: No acute bony abnormality. Degenerative changes of spine. IMPRESSION: Increased interstitial lung markings, probably chronic/fibrotic changes. Underlying infiltrate especially in the lower lung babb cannot be entirely excluded. Dictated by: Jv Thompson M.D. on 12/12/2017 at 12:57 Electronically approved by: Jv Thompson M.D. on 12/12/2017 at 12:57 Dictated By: JV THOMPSON MD 1257 Transcribed By: RINA on 12/12/17 1257 COPY TO: SAPNA CABRERA MD CHEST SINGLE (PORTABLE) [place] [address] Patient Name: VEDA ADAMS MR #: [id number] : 1940 Age/Sex: 77/F Req #: [id number] Adm Physician: Ordered by: MONTSE MATTHEWS MD Report #: [id number] Location: ER Room/Bed: Procedure: [id number] DX/CHEST SINGLE (PORTABLE) Exam Date: 10/08/17 Exam Time: 0545 REPORT STATUS: Signed EXAMINATION: CHEST SINGLE (PORTABLE) INDICATION: Hypertension, chest pain, throat discomfort COMPARISON: None FINDINGS: TUBES and LINES: None. LUNGS: Lungs are well inflated. There are bibasilar atelectasis. There is mild prominence of the central pulmonary vasculature, consistent with pulmonary venous congestion. Interlobular septi thickening noted in the perihilar and bibasilar regions. PLEURA: No pleural effusion or pneumothorax. HEART AND MEDIASTINUM: Cardiac size is mildly enlarged. There are atherosclerotic calcifications within the aorta. BONES AND SOFT TISSUES: No acute osseous lesion. Soft tissues are unremarkable. UPPER ABDOMEN: No free air under the diaphragm. IMPRESSION: Mild cardiogenic pulmonary edema is present. Signed by: Dr. German Jimenez M.D. on 10/08/2017 6:22 AM Dictated By: GERMAN BOWLING MD 1 Transcribed By: RAULITO on 10/08/17621 COPY TO: MONTSE MATTHEWS MD CT BRAIN WO [place] [id number] [place] [address] Patient Name: VEDA ADAMS MR #: [id number] : 1940 Age/Sex: 77/F Req #: [id number] Adm Physician: Ordered by: MONTSE MATTHEWS MD Report #: [id number] Location: ER Room/Bed: Procedure: [id number] CT/CT BRAIN WO Exam Date: 10/08/17 Exam Time: 0605 REPORT STATUS: Signed Examination: CT BRAIN WITHOUT CONTRAST History:Difficulty breathing. Headaches. Comparison studies:None Technique: Axial images were obtained from the skull base to the vertex. Coronal and sagittal images reconstructed from the axial data. Intravenous contrast: None Findings: Scalp: No abnormalities. Bones: No fractures, blastic or lytic lesions. Brain sulci: Appropriate for age. Ventricles: Normal in size and configuration. No hydrocephalus. Extra-axial space: No abnormalities. Parenchyma: There are subtle patchy areas of hypoattenuation in the periventricular and subcortical white matter, nonspecific. No masses, hemorrhage, or acute or chronic cortical based vascular insults. Sellar/suprasellar region: No abnormalities. Craniocervical junction: Patent foramen magnum. No Chiari one malformation. Incidental findings: Atherosclerotic calcification of the cavernous and supraclinoid internal carotid and V4 segments of the bilateral vertebral arteries. Impression: 1. No acute intracranial abnormalities. 2. Mild chronic microvascular ischemic change. Signed by: Dr. Katelyn Gonzales M.D. on 10/08/2017 7:41 AM Dictated By: KATELYN RAMSAY MD 0 Transcribed By: RAULITO on 10/08/17740 COPY TO: MONTSE MATTHEWS MD US RENAL RETROPERITONEAL COMP [place] [address] Patient Name: VEDA ADAMS MR #: [id number] : 1940 Age/Sex: 77/F Req #: [id number] Adm Physician: Ordered by: MICHAEL ARCOS MD Report #: [id number] Location: US Room/Bed: Procedure: [id number] US/US RENAL RETROPERITONEAL COMP Exam Date: 09/28/17 Exam Time: 928 REPORT STATUS: Signed PROCEDURE: US RETROPERITONEAL ( KIDNEY ). COMPARISON: None. INDICATIONS: CKD STAGE 2 TECHNIQUE: Nunn-scale and color sonographic images of the bilateral kidneys and bladder where obtained in transverse and longitudinal planes. FINDINGS: RIGHT KIDNEY: 10.9 cm in length, cortical thickness 1.7 cm. Cysts: None Solid masses: None Stones: None Hydronephrosis: None Echogenicity: Normal renal cortical echogenicity. LEFT KIDNEY: 10.4 cm in length, cortical thickness 1.8 cm. Cysts: None Solid masses: None Stones: None Hydronephrosis: Stable mild prominence of the left renal pelvis without overt hydronephrosis. Echogenicity: Normal renal cortical echogenicity. Bladder: Unremarkable. Right and left ureteral jets are identified. CONCLUSION: Unremark able sonographic appearance of the kidneys. Dictated by: Heather Corey M.D. on 09/28/2017 at 10:09 Electronically approved by: Heather Corey M.D. on 09/28/2017 at 10:09 Dictated By: HEATHER COREY MD 08 Transcribed By: RINA on 09/28/171008 COPY TO: MICHAEL ARCOS MD US PELVIC (NON OB) MELGAR OR F/U [place] [address] Patient Name: VEDA ADAMS MR #: [id number] : 1940 Age/Sex: 77/F Req #: [id number] Adm Physician: Ordered by: MICHAEL ARCOS MD Report #: [id number] Location: Room/Bed: Procedure: [id number] US/US PELVIC (NON OB) MELGAR OR F/U Exam Date: 09/28/17 Exam Time: 928 REPORT STATUS: Signed PROCEDURE: URINARY BLADDER ULTRASOUND COMPARISON: None. INDICATIONS: CKD STAGE 2 CONCLUSION: Please refer to "US RETROPERITONEAL" performed at the same date and time for full dictated report. Dictated by: Heather Corey M.D. on 09/28/2017 at 10:09 Electronically approved by: Heather Corey M.D. on 09/28/2017 at 10:09 Dictated By: HEATHER COREY MD 08 Transcribed By: RINA on 09/28/171008 COPY TO: MICHAEL ARCOS MD
== END | disposition home or self-care (01) ==
LOC: OR 13:56
PROVIDERS: ATTEND Internal Medicine Gastroenterology
DX: K52.9 Noninfective gastroenteritis and colitis, unspecified (principal); K29.50 Unspecified chronic gastritis without bleeding; K21.9 Gastro-esophageal reflux disease without esophagitis; K31.89 Other diseases of stomach and duodenum; K20.9 Esophagitis, unspecified; K44.9 Diaphragmatic hernia without obstruction or gangrene; K57.30 Diverticulosis of large intestine without perforation or abscess without bleeding; K64.8 Other hemorrhoids; R63.4 Abnormal weight loss; R63.0 Anorexia; R05 Cough; J84.10 Pulmonary fibrosis, unspecified; M34.9 Systemic sclerosis, unspecified; E11.22 Type 2 diabetes mellitus with diabetic chronic kidney disease; I12.9 Hypertensive chronic kidney disease with stage 1 through stage 4 chronic kidney disease, or unspecified chronic kidney disease; N18.9 Chronic kidney disease, unspecified; Z88.1 Allergy status to other antibiotic agents; Z01.810 Encounter for preprocedural cardiovascular examination; Z79.84 Long term (current) use of oral hypoglycemic drugs; Z68.26 Body mass index [BMI] 26.0-26.9, adult
CPT/HCPCS: 36415; 43239; 45380; 82948; 83630; 83993; 87045; 87177; 87328; 87493; 88305; 88312; 93005; J2704

== ENCOUNTER 2019-12-28 12:28 | Inpatient (IN) | payer MEDICARE ==
[~2019-12-28] VITALS: Ht 149.9 cm; Wt 63.5 kg
[~2019-12-28 12:28] MED LIST changes: -HYOSCYAMINE 0.125 MG TAB ONE; -PROPOFOL IV EMULSION 10 MG/ML 20 ML VIAL ONE; -PROPOFOL IV EMULSION 10 MG/ML 50 ML VIAL ONE
[2019-12-28] MEDS ORDERED: IPRATROPIUM BROMIDE 0.02% 2.5 ML NEB NEB STA (12:58)
[2019-12-28] MEDS ORDERED: ALBUTEROL SULF 0.083% NEB SOLN 3 ML NEB NEB ONE (12:58)
[2019-12-28] MEDS ORDERED: METHYLPREDNISOLONE SOD SUCC 125 MG/2ML VIAL IV ONE (13:18)
[2019-12-28 13:26] LABS: BASOPHILS % 0.4 % (0.0-1.0); EOSINOPHILS % 0.5 % (0.0-6.0); HEMATOCRIT 34.6 % (34.2-44.1); HEMOGLOBIN 12.2 g/dL (12.0-16.0); LYMPHOCYTES # (AUTO) 1.3 (1.0-3.2); LYMPHOCYTES % 14.9 % (18.0-39.1); MEAN CORPUSCULAR HEMOGLOBIN 33.2 pg (28-32); MEAN CORPUSCULAR HGB CONC 35.3 g/dL (31-35); MEAN CORPUSCULAR VOLUME 94.3 fL (81-99); MONOCYTES # (AUTO) 0.6 (0.2-0.8); MONOCYTES % 6.8 % (4.4-11.3); NEUTROPHILS # (AUTO) 6.6 (2.1-6.9); NEUTROPHILS % 76.9 % (38.7-80.0); PLATELET COUNT 274 x10e3/uL (140-360); RED BLOOD COUNT 3.67 x10e6/uL (3.6-5.1); RED CELL DISTRIBUTION WIDTH 14.2 % (11.7-14.4)
[2019-12-28] MEDS ORDERED: VITAMIN B-121000 MCG INJ (13:29)
[2019-12-28] MEDS ORDERED: MUPIROCIN22 GM TOP (13:29)
[2019-12-28] MEDS ORDERED: ESBRIET801 MG PO (13:29)
[2019-12-28] MEDS ORDERED: AZITHROMYCIN 500MG/NS 250 ML 250 ML IV SCH (13:30)
[2019-12-28 13:44] LABS: STREPTOCOCCUS GRP A ANTIGEN NEGATIVE (NEGATIVE)
[2019-12-28 13:54] LABS: INFLUENZAE A&B ANTIGEN (RAPID) NEGATIVE (NEGATIVE)
[2019-12-28] MEDS: CEFEPIME 2 GM/NS 0.9% 100 ML 100 ML IV SCH (13:54)
--- NOTE | 2019-12-28 14:04 | NUR ---
BLOOD REDRAWN PATIENT RECEIVING BREATHING TX
[2019-12-28 14:14] LABS: CLARITY,URINE CLOUDY (CLEAR); COLOR,URINE YELLOW (YELLOW); LEUKOCYTE ESTERASE ,URINE SMALL (NEGATIVE); NITRITE,URINE NEGATIVE (NEGATIVE); PROTEIN,URINE DIPSTICK 2+ (NEGATIVE)
[2019-12-28 14:14] LABS: INR 0.88; PROTHROMBIN TIME 12.5 seconds (11.9-14.5)
[2019-12-28 14:15] LABS: BACTERIA,URINE MANY /HPF; BILIRUBIN,URINE NEGATIVE (NEGATIVE); EPITHELIAL CELLS,URINE FEW /LPF; KETONES,URINE TRACE (NEGATIVE); RBC,URINE 0-5 /HPF (0-5); URINE UROBILINOGEN 0.2 mg/dL (0.2 - 1); WBC,URINE (MAN) 21-50 /HPF (0-5)
[2019-12-28 14:15] LABS: PARTIAL THROMBOPLASTIN TIME 30.3 seconds (23.8-35.5)
[2019-12-28 14:16] LABS: AMORPHOUS SEDIMENT,URINE MODERATE (FEW)
[2019-12-28 14:21] LABS: ALANINE AMINOTRANSFERASE 6 IU/L (0-55); ALBUMIN 3.2 g/dL (3.5-5.0); ALKALINE PHOSPHATASE 91 IU/L (40-150); ANION GAP 13.6 mmol/L (8-16); BLOOD UREA NITROGEN 8 mg/dL (7-26); BUN/CREATININE RATIO 12 (6-25); CARBON DIOXIDE 26 mmol/L (22-29); CHLORIDE 96 mmol/L (98-107); CREATINE KINASE 54 IU/L (29-168); CREATININE, SERUM 0.67 mg/dL (0.57-1.11); EST GLOMERULAR FILTRATION RATE > 60 ML/MIN (60-); GLUCOSE 201 mg/dL (74-118); POTASSIUM 3.6 mmol/L (3.5-5.1); SODIUM 132 mmol/L (136-145)
[2019-12-28] MEDS ORDERED: SODIUM CHLORIDE 0.9% 1000ML 1,000 ML IV STA ×2 (14:33→16:44)
[2019-12-28] MEDS ORDERED: ONDANSETRON HCL INJ 2MG/ML 2ML 2 MG/ML VIAL IV PRN (14:45)
[2019-12-28] MEDS: ALBUTEROL SULF 0.083% NEB SOLN 3 ML NEB NEB SCH ×3 (15:00→21:30)
[2019-12-28] MEDS: IPRATROPIUM BROMIDE 0.02% 2.5 ML NEB NEB SCH ×3 (15:00→21:30)
[2019-12-28] MEDS ORDERED: ZOLPIDEM TARTRATE 5 MG TAB PO PRN (15:15)
[2019-12-28] MEDS ORDERED: ALBUTEROL SULF 0.083% NEB SOLN 3 ML NEB NEB PRN (15:15)
--- NOTE | 2019-12-28 15:39 | Diagnostic Imaging Report ---
EXAMINATION: CHEST SINGLE (PORTABLE) INDICATION: ^ERMD ORDER ^[id number] ^[id number] ^Y COMPARISON: CT chest dated 07/24/2018 FINDINGS: AP view TUBES and LINES: None. LUNGS: Lungs are well inflated. There is mild prominence of the central pulmonary vasculature, consistent with pulmonary venous congestion. Fibrotic changes in both lungs are again noted. PLEURA: No pleural effusion or pneumothorax. HEART AND MEDIASTINUM: The cardiomediastinal silhouette is unremarkable. BONES AND SOFT TISSUES: No acute osseous lesion. Soft tissues are unremarkable. UPPER ABDOMEN: No free air under the diaphragm. IMPRESSION: Fibrotic changes in both lungs are seen with mild pulmonary venous congestion Signed by: Holland Nash MD on 12/28/2019 3:37 PM
--- NOTE | 2019-12-28 16:15 | NUR ---
2nd LACTIC DRAWN AFTER FLUID BOLUS COMPLETE
--- NOTE | 2019-12-28 16:45 | NUR ---
LACTIC ACID 2.5. DR. MATTHEWS AWARE. PATIENT STARTING 2ND FLUID BOLUS
[2019-12-28] MEDS ORDERED: SODIUM CHLORIDE 0.9% 1000ML 1,000 ML ONE (16:50)
[2019-12-28] MEDS ORDERED: DEXTROSE 50% SYRINGE 50 ML IV PRN (17:00)
--- NOTE | 2019-12-28 17:21 | Diagnostic Imaging Report ---
EXAM: CT Chest WITHOUT contrast INDICATION: ^Pulmonary Fibrosis ^[id number] ^1623 COMPARISON: CT chest dated 07/24/2018. TECHNIQUE: Chest was scanned utilizing a multidetector helical scanner from the lung apex through the level of the adrenal glands without administration of IV contrast. Absence of intravenous contrast decreases sensitivity for detection of lymphadenopathy and vascular pathology. Coronal and sagittal reformations were obtained. Routine protocol was performed. IV CONTRAST: None COMPLICATIONS: None RADIATION DOSE: Total DLP: 475.32 mGy*cm Estimated effective dose: (DLP x 0.014 x size factor) mSv CTDIvol has been reviewed. It is below the limits set by the Radiation Protocol Committee (RPC). FINDINGS: LINES/ TUBES: None. LUNGS AND AIRWAYS: Diffuse interstitial markings and reticular changes in bilateral lungs again seen minimally increased from prior exam. Area of fibrosis and bronchiectatic changes predominantly in lower lungs have also minimally worsened from prior exam. No definite focal nodule or mass is seen. Central airways are patent. PLEURA: The pleural spaces are clear. HEART AND MEDIASTINUM: The thyroid gland is normal. Prominent mediastinal and hilar lymph nodes are unchanged. No axillary lymphadenopathy. The heart is normal in size.. There is no pericardial effusion. UPPER ABDOMEN: Small hiatal hernia seen. BONES: There are degenerative changes in the thoracic spine. SOFT TISSUES: Unremarkable. IMPRESSION: Changes related to interstitial lung disease as described have minimally increased from prior exam. Signed by: Holland Nash MD on 12/28/2019 5:19 PM
--- NOTE | 2019-12-28 18:25 | NUR ---
PATIENTS LACTIC 3.2. DR. TRINIDAD NOTIFIED. NO NEW ORDERS FOR REPEAT LACTIC, MAINTENANCE FLUID OR ADDITIONAL ANTIBIOTICS. HE IS AWARE SHE RECEIVED 2 LITERS IVF , CEFEPIME 2GM IVAND AZITHROMYCIN 500 MG IV
[2019-12-28 18:48] LABS: CREATINE KINASE MB 1.5 ng/mL (0-5.0)
[2019-12-28 19:45] VITALS: BP 155/70
[2019-12-28 20:30] VITALS: BP 155/70
[2019-12-28 20:49] VITALS: BP 155/70
[2019-12-28] MEDS ORDERED: LOSARTAN POTASSIUM 25 MG TAB PO SCH (21:00)
[2019-12-28] MEDS: METHYLPREDNISOLONE SOD SUCC 125 MG/2ML VIAL IV SCH (21:32)
[2019-12-28] MEDS: METOPROLOL SUCCINATE 50 MG TAB XL PO SCH (21:33)
[2019-12-28] MEDS: AMLODIPINE BESYLATE 5 MG TAB PO SCH (21:33)
[2019-12-28] MEDS: AZATHIOPRINE 50 MG TAB PO SCH (21:33)
[2019-12-28] MEDS: LOSARTAN POTASSIUM 100 MG TAB PO SCH (21:34)
[2019-12-28] MEDS ORDERED: METHYLPREDNISOLONE SOD SUCC 125 MG/2ML VIAL IV SCH (22:00)
--- NOTE | 2019-12-28 22:47 | Consultation ---
DATE OF CONSULTATION: 12/28/2019 Pulmonary Critical Care Consultation CHIEF COMPLAINT: Dyspnea and malaise. HISTORY OF PRESENT ILLNESS: The patient is an 79-year-old woman. She has a diagnosis of idiopathic pulmonary fibrosis as well as bronchiectasis. She is on Esbriet at home as well as Imuran and low-dose prednisone. She complains of increased malaise and dyspnea. She was having some increased cough. She did not complain of fever or chest pain. PAST SURGICAL HISTORY: Negative cardiac catheterization last year. PAST MEDICAL HISTORY: 1. Diabetes. 2. High blood pressure. ALLERGIES: THE PATIENT HAS ALLERGIES TO LEVAQUIN. SOCIAL HISTORY: The patient quit smoking 30 years ago. She is not an active drinker. FAMILY HISTORY: Family history is noncontributory. REVIEW OF SYSTEMS: There is no headache. She has no fever. She does not complain of neck pain. She does note dyspnea. She has some cough. She notes no phlegm production. She has no abdominal pain. She has no nausea or vomiting. She has no leg edema. She is not complaining of any focal weakness. PHYSICAL EXAMINATION: VITAL SIGNS: The patient is afebrile. The blood pressure is 145/55 and saturation is 100%. HEENT: Shows no facial swelling or erythema. CARDIAC: Reveals regular rate and rhythm with normal S1, S2. LUNGS: Auscultation of lungs reveals crackles in both lung babb. There is no wheezing. ABDOMEN: Soft, nontender. There is no rebound or guarding. EXTREMITIES: Show no leg edema or calf tenderness. There is no cyanosis or clubbing. SKIN: Shows no rashes. NEUROLOGICAL: Shows no focal abnormalities. IMPRESSION: 1. Bronchiectasis with acute exacerbation. 2. Idiopathic pulmonary fibrosis. 3. Rhinosinusitis. 4. Gastroesophageal reflux. 5. Diabetes. PLAN: 1. Continue Solu-Medrol. 2. Continue current antibiotics and await culture results. 3. Consider CT scan of chest. 4. Out of bed as tolerated. 5. Continue prior antihypertensive regimen and diabetic regimen. Ottoniel Enamorado MD [facility]/MODL /[id number]
--- NOTE | 2019-12-28 23:32 | NUR ---
lactic acid redraw resulted 2.8 reported to MD LEVINE, ORDER TO PROCEED WITH 0200 LAB REDRAW, AND START IV HYDRATION NS 80CC/HR, ORDER CARRIED OUT
[2019-12-28] MEDS ORDERED: SODIUM CHLORIDE 0.9% 1000ML 1,000 ML IV SCH (23:45)
[2019-12-29] VITALS (11 sets, daily range): BP systolic 122–155; BP diastolic 58–75
--- NOTE | 2019-12-29 | NUR ---
PATIENT DX 1. Bronchiectasis with acute exacerbation. 2. Idiopathic pulmonary fibrosis. 3. Rhinosinusitis. 4. Gastroesophageal reflux. 5. Diabetes. PLANOF CARE PER MD 1. Continue Solu-Medrol. 2. Continue current antibiotics and await culture results. 3. Consider CT scan of chest. 4. Out of bed as tolerated. 5. Continue prior antihypertensive regimen and diabetic regimen
[2019-12-29] MEDS: CEFEPIME 2 GM/NS 0.9% 100 ML 100 ML IV SCH ×2 (01:34→14:12)
[2019-12-29] MEDS: IPRATROPIUM BROMIDE 0.02% 2.5 ML NEB NEB SCH ×6 (02:30→23:20)
[2019-12-29] MEDS: ALBUTEROL SULF 0.083% NEB SOLN 3 ML NEB NEB SCH ×6 (02:30→23:20)
[2019-12-29 05:30] LABS: HEMOGLOBIN 10.4 g/dL (12.0-16.0); LYMPHOCYTES # (AUTO) 0.7 (1.0-3.2); LYMPHOCYTES % 12.8 % (18.0-39.1); MEAN CORPUSCULAR HGB CONC 33.5 g/dL (31-35); MEAN CORPUSCULAR VOLUME 95.4 fL (81-99); MONOCYTES # (AUTO) 0.1 (0.2-0.8); MONOCYTES % 2.3 % (4.4-11.3); NEUTROPHILS # (AUTO) 4.5 (2.1-6.9); NEUTROPHILS % 84.3 % (38.7-80.0); PLATELET COUNT 251 x10e3/uL (140-360); RED BLOOD COUNT 3.25 x10e6/uL (3.6-5.1); RED CELL DISTRIBUTION WIDTH 14.3 % (11.7-14.4)
[2019-12-29 05:56] LABS: ALANINE AMINOTRANSFERASE 7 IU/L (0-55); ALBUMIN 2.8 g/dL (3.5-5.0); ALBUMIN/GLOBULIN RATIO 0.8 (0.8-2.0); ALKALINE PHOSPHATASE 80 IU/L (40-150); ANION GAP 13.7 mmol/L (8-16); BLOOD UREA NITROGEN 10 mg/dL (7-26); BUN/CREATININE RATIO 16 (6-25); CALCIUM 8.4 mg/dL (8.4-10.2); CARBON DIOXIDE 21 mmol/L (22-29); CHLORIDE 102 mmol/L (98-107); CHOL/HDL RATIO 3.6 (3.0-3.6); CHOLESTEROL 175 MD/DL (0-199); CREATININE, SERUM 0.64 mg/dL (0.57-1.11); EST GLOMERULAR FILTRATION RATE > 60 ML/MIN (60-); GLUCOSE 278 mg/dL (74-118); HDL CHOLESTEROL 49 MG/DL (40-60); LDL CHOLESTEROL 113 MG/DL (60-130); POTASSIUM 3.7 mmol/L (3.5-5.1); SODIUM 133 mmol/L (136-145); TRIGLYCERIDES 67 MG/DL (0-149)
--- NOTE | 2019-12-29 06:13 | NUR ---
BLOOD SUGAR 278, MD LEVINE MADE AWARE, PAGED @[phone] Addendum: 12/29/19 at 0623 by RHONA FRIEDMAN RN DIRECTLY CONNECTED TO MD LEVINE VIA ANSWERING SERVICE, ORDERED TO RESTART METFORMIN 500MG PO BID, AND START SLIDING SCALE REFULAR INSULIN ACHS, ORDERS CARRIED OUT
[2019-12-29] MEDS ORDERED: DEXTROSE 50% SYRINGE 50 ML IV PRN (06:15)
[2019-12-29 06:24] LABS: CREATINE KINASE MB 1.6 ng/mL (0-5.0)
--- NOTE | 2019-12-29 07:11 | NUR ---
bedside shift report received from rn shift mgr RN, pt awake, alert, IV patent, no signs of infiltration. no signs of distress noted; pt has no complaints at this time.
[2019-12-29] MEDS: INSULIN REGULAR, HUMAN 100 UNIT/1 ML 3ML VIAL SQ SCH ×4 (08:51→21:00)
[2019-12-29] MEDS: METFORMIN HCL 500 MG TAB PO SCH ×2 (09:18→17:00)
[2019-12-29] MEDS: AZATHIOPRINE 50 MG TAB PO SCH ×3 (09:23→21:00)
[2019-12-29] MEDS: METHYLPREDNISOLONE SOD SUCC 125 MG/2ML VIAL IV SCH ×2 (09:23→21:15)
[2019-12-29] MEDS ORDERED: ACETAMINOPHEN 325 MG TAB PO PRN (09:45)
[2019-12-29] MEDS ORDERED: ONDANSETRON HCL 4 MG ORAL DISINTEGRATING TAB PO PRN (10:00)
--- NOTE | 2019-12-29 11:09 | History and Physical ---
CHIEF COMPLAINTS: Worsening shortness of breath and cough spells. HISTORY OF PRESENT ILLNESS: This is an 79-year-old woman, who presents to [facility] with a 4- to 5-day history of worsening cough and chest congestion. According to her adult daughter, the patient went to a local urgent care on December 24, 2019 with upper respiratory infection type symptoms. The patient was prescribed a 5-day course of oral azithromycin, which did not improve her symptoms. This woman has underlying history of scleroderma as well as interstitial lung disease and bronchiectasis. In the emergency room, the patient underwent chest x-ray that revealed fibrotic changes in both lungs as well as mild pulmonary venous congestion. The patient subsequently underwent a CT of the chest without contrast that revealed changes related to interstitial lung disease that showed worsening from previous exams. The CT also revealed areas of fibrosis and bronchiectasis changes, predominantly in the lower lobes. In the emergency room, the patient was found to have lactic acid level that got as high as 3.2, but it did normalize, however, the patient does take metformin at home. The patient's renal function was normal during this hospitalization. The patient was found to have slightly elevated B-type natriuretic peptide level of 120. The patient's white blood cell count on admission was 8500 with 76% segmenters. Today's white blood cell count 5300 with 84% segmented neutrophils. Of note, urine culture performed at her primary care physician's office namely myself, Dr. Fuentes Cabrera, revealed Streptococcus pneumoniae, bacterial species greater than 100,000 colony-forming units/mL urine. The antibiotic with the best sensitivities to Floxin, unfortunately the patient has allergies to this medication. The patient, however, was prescribed a 7-day course of oral Bactrim twice a day, which she fully completed, and this was on November 07, 2019. REVIEW OF SYSTEMS: GENERAL: The patient has not had fever or chills, but she has been very weak and fatigue. HEENT: No headaches. No visual changes. CARDIOVASCULAR/RESPIRATORY: Worsening cough and shortness of breath over the last five days. GI: No nausea, vomiting, or constipation. : The patient suffers from recurrent urinary tract infections. Daughter states she has at least 5 urinary tract infections a year. NEUROMUSCULAR: No limb weakness, but she does have numbness in her hands and feet from her diabetic peripheral neuropathy. ALLERGIES: LEVOFLOXACIN. MEDICATIONS: 1. Losartan 50 mg daily. 2. Symbicort 80/4.5 mcg 2 puffs b.i.d. 3. Dicyclomine 20 mg t.i.d. p.r.n. abdominal cramps. 4. Metformin 1000 mg b.i.d. 5. Metoprolol succinate 100 mg daily. 6. Vitamin B12, 1000 mcg intramuscular every two weeks. 7. Prednisolone 5 mg p.o. daily. 8. Imuran 50 mg daily. 9. Omeprazole 40 mg daily. 10. Esbriet 801 mg orally t.i.d. 11. Tessalon Perles 100 mg t.i.d. 12. Albuterol nebulized treatments 3 times a day. 13. Albuterol inhaler two puffs q.i.d. 14. Amlodipine 5 mg daily. 15. Sitagliptin 100 mg daily. 16. Loratadine 10 mg daily. PAST MEDICAL HISTORY: 1. Type 2 diabetes mellitus with diabetic peripheral neuropathy. 2. Vitamin D deficiency. 3. History of gout. 4. Hypothyroid disease. 5. Stage I chronic kidney disease. 6. Mild obesity, BMI 30. 7. Mild cognitive impairment. 8. Pulmonary fibrosis. 9. Scleroderma. PAST SURGICAL HISTORY: 1. Bilateral cataract surgery. 2. Open cholecystectomy. 3. Left heart catheterization (no percutaneous coronary intervention was performed). FAMILY HISTORY: Mother with type 2 diabetes mellitus. SOCIAL HISTORY: She is a , but she lives with her adult daughter. She was a heavy tobacco smoker, but quit in 1989. She is retired. No history of alcohol use. PHYSICAL EXAMINATION: GENERAL: She is awake, alert. She is not fluent, fully oriented. She has a flat depressed affect. She does seem to get confused easily. VITAL SIGNS: Blood pressure 156/66, pulse is 84, respiratory rate 22, oxygen saturation is 95%, and temperature 96.3, BMI is 28. Height 4 feet 11 inches. Weight 140 pounds. BMI 28. INTEGUMENT: Skin is warm and dry. No pallor, jaundice, or diaphoresis. HEENT: Anicteric sclerae. Moist mucous membranes. NECK: Supple. CARDIOVASCULAR: Distant heart sounds. Regular rate and rhythm. LUNGS: The patient has faint crackles at bases, most pronounced on the left. ABDOMEN: Benign. EXTREMITIES: No edema or deformity. NEUROLOGIC: Intact. DIAGNOSES: 1. Interstitial lung disease (pulmonary fibrosis). 2. Scleroderma. 3. Bronchiectasis. 4. Pneumococcal pneumonia, likely. 5. Urinary tract infection (recent Streptococcus pneumoniae urinary tract infection in December 03, 2019). 6. Type 2 diabetes mellitus with neuropathy. 7. Mild cognitive impairment. PLAN: 1. Follow urine and blood cultures. 2. Discontinue azithromycin. 3. Continue intravenous cefepime. 4. We will start intravenous vancomycin. 5. Consult Pulmonary. 6. Continue nebulized bronchodilators. I spent 45 minutes in the care of this patient. MD SHEILA Rivers/ELODIAL /[id number] MTDD
[2019-12-29] MEDS: VANCOMYCIN 1GM/NS 250 ML 250 ML IV SCH ×2 (12:00→22:00)
--- NOTE | 2019-12-29 14:41 | NUR ---
Received order for home health. Spoke with pt at bedside. She states she doesn't think she needs it. Pt's daughter Robby on phone. CM spoke with Robby about home health services and what they provide. Robby states she would like for us to hold off for now until she speaks with MD tomorrow. CM business card left for pt/family. Will follow up tomorrow.
--- NOTE | 2019-12-29 14:52 | NUR ---
Nutrition Screen Note RD Recommendation for Physician: - Continue 1800 ADA diet Plan of Care: RD following, monitoring for tolerance and adequacy Nutrition reason for involvement: Nutrition Risk Trigger Primary Diagnose(s): bronchitis, pulmonary fibrosis PMH: bronchiectasis, DM, high blood pressure Ht: 59 in Wt: 140 lb BMI: 28.3 kg/m2 IBW: 98.[address] Assessment: (12/29) 79 YOF admitted for bronchitis, seen today per MST screen. Pt sleeping at time of visit, attempted to wake, however pt sleeping deeply. Grand daughter at bedside provided hx. She states pt's eating has changed over the past few months after getting dentures, pt finds certain foods difficult to chew and the kitchen is currently undergoing renovation and they are unable to cook so they are dining out a lot. Pt's grand daughter reports wt loss over the past 3 months, can not quantify- pt appears well nourished. Pt eating well since admit yesterday, 75% intake reported and documented. Pt's grand daughter denies any GI distress. No questions or concerns at time of visit. Chart reviewed. Labs and meds reviewed. Will continue to monitor. Current Diet: 1800 ADA Malnutrition Evaluation (12/29/19) The patient does not meet criteria for a specified degree of malnutrition at this time. Will re-evaluate at follow-up as appropriate. Energy intake: <75% of estimated energy requirements for >7 days Weight loss: FAYE. Wt loss reported, unable to quantify at this time. Fat loss: none, ample skinfold thickness Muscle loss: none, shoulder round Supporting Evidence: Fluid accumulation: none observed Functional Status: not assessed Diet Education Needs Assessment: Diet education not indicated at this time. Diet tolerance: tolerating po Nutrition Care Level: Low Signed: Fransisca Kemp RD, LD, [facility]
[2019-12-29 15:29] LABS: CREATINE KINASE MB 1.5 ng/mL (0-5.0)
--- NOTE | 2019-12-29 15:51 | Progress Note ---
DATE: 12/29/2019 SUBJECTIVE: The patient has less dyspnea and less malaise. She is not complaining of cough or fever. PHYSICAL EXAMINATION: VITAL SIGNS: The patient is afebrile. The blood pressure is 124/58 and saturation is 98%. HEENT: Shows no facial swelling or erythema. CARDIAC: Reveals regular rate and rhythm with normal S1 and S2. There are no murmurs or rubs. LUNGS: Auscultation of lungs reveals crackles in both lung babb. ABDOMEN: Soft and nontender. There is no rebound or guarding. EXTREMITIES: There is no leg edema. LABORATORY DATA: Hemoglobin is 10.4 and the white blood cell count is 5.3. The platelet count is 251. BUN to creatinine ratio is normal. The sodium is 133 and the blood sugar is 236. IMPRESSION: 1. Bronchiectasis with acute exacerbation. 2. Pulmonary fibrosis with a usual interstitial pneumonitis pattern. 3. Scleroderma. 4. Gastroesophageal reflux. 5. Diabetes. 6. Anemia, unspecified. PLAN: 1. Taper steroids. 2. Physical therapy. 3. Continue antibiotics and await culture results. Ottoniel Enamorado MD [facility]/MODL /[id number]
--- NOTE | 2019-12-29 19:20 | NUR ---
Patient received lying in bed. AAO x 4. Patient had no complaints of pain. Respirations even and non-labored. Fall precautions implemented. Patient instructed to call for assistance when needed. Call light within reach.
[2019-12-29] MEDS: LOSARTAN POTASSIUM 100 MG TAB PO SCH (21:00)
[2019-12-29] MEDS: AMLODIPINE BESYLATE 5 MG TAB PO SCH (21:15)
[2019-12-29] MEDS: METOPROLOL SUCCINATE 50 MG TAB XL PO SCH (21:15)
--- NOTE | 2019-12-29 21:22 | NUR ---
Patient complained of coughing . Dr. Carmel Enamorado paged. New order received for Guaifenesin with codeine 5cc PO Q4H PRN.
[2019-12-29] MEDS ORDERED: GUAIFENESIN/CODEINE 10 ML CUP PO PRN (21:30)
[2019-12-30] VITALS (8 sets, daily range): BP systolic 115–142; BP diastolic 58–62
[2019-12-30] MEDS: CEFEPIME 2 GM/NS 0.9% 100 ML 100 ML IV SCH ×2 (02:00→13:51)
[2019-12-30] MEDS: IPRATROPIUM BROMIDE 0.02% 2.5 ML NEB NEB SCH ×6 (03:23→23:05)
[2019-12-30] MEDS: ALBUTEROL SULF 0.083% NEB SOLN 3 ML NEB NEB SCH ×6 (03:23→23:05)
[2019-12-30 05:20] LABS: HEMATOCRIT 31.8 % (34.2-44.1); HEMOGLOBIN 10.5 g/dL (12.0-16.0); LYMPHOCYTES # (AUTO) 0.6 (1.0-3.2); LYMPHOCYTES % 9.6 % (18.0-39.1); MEAN CORPUSCULAR HEMOGLOBIN 32.1 pg (28-32); MEAN CORPUSCULAR VOLUME 97.2 fL (81-99); MONOCYTES # (AUTO) 0.1 (0.2-0.8); MONOCYTES % 1.9 % (4.4-11.3); NEUTROPHILS # (AUTO) 5.5 (2.1-6.9); NEUTROPHILS % 87.9 % (38.7-80.0); PLATELET COUNT 271 x10e3/uL (140-360); RED BLOOD COUNT 3.27 x10e6/uL (3.6-5.1); RED CELL DISTRIBUTION WIDTH 14.3 % (11.7-14.4)
--- NOTE | 2019-12-30 05:48 | Diagnostic Imaging Report ---
Examination: Single AP view of the chest. COMPARISON: 12/28/2019 INDICATION: Pulmonary fibrosis and pneumonia DISCUSSION: See impression IMPRESSION: The lungs remain well-inflated. No interval change in coarse reticular opacities compatible with fibrotic changes seen to better advantage on comparison chest CT. No new consolidations. Stable cardiomediastinal contour when accounting for differences in technique. No acute osseous abnormality. Signed by: Dr. Jim Corey M.D. on 12/30/2019 5:45 AM
[2019-12-30 05:55] LABS: ALANINE AMINOTRANSFERASE 6 IU/L (0-55); ALBUMIN 2.9 g/dL (3.5-5.0); ALBUMIN/GLOBULIN RATIO 0.9 (0.8-2.0); ALKALINE PHOSPHATASE 73 IU/L (40-150); ANION GAP 11.6 mmol/L (8-16); BLOOD UREA NITROGEN 12 mg/dL (7-26); BUN/CREATININE RATIO 18 (6-25); CALCIUM 8.5 mg/dL (8.4-10.2); CARBON DIOXIDE 23 mmol/L (22-29); CHLORIDE 100 mmol/L (98-107); CREATININE, SERUM 0.67 mg/dL (0.57-1.11); EST GLOMERULAR FILTRATION RATE > 60 ML/MIN (60-); GLUCOSE 390 mg/dL (74-118); POTASSIUM 3.6 mmol/L (3.5-5.1); SODIUM 131 mmol/L (136-145)
--- NOTE | 2019-12-30 07:00 | NUR ---
Walking rounds done. Patient resting comfortably. BSSR given to oncoming nurse.
--- NOTE | 2019-12-30 07:02 | NUR ---
bedside shift report received from PM RN, pt resting comfortably, easily aroused, respirations even and nonlabored, no signs of distress. pt has no complaints at this time.
--- NOTE | 2019-12-30 08:01 | NUR ---
paged Dr. Cabrera regarding pt's elevated blood sugar of 359. awaiting callback.
--- NOTE | 2019-12-30 08:04 | NUR ---
Dr. Cabrera called back, states give 25 units now of Humulin R and put pt on high dose scale.
[2019-12-30] MEDS: INSULIN REGULAR, HUMAN 100 UNIT/1 ML 3ML VIAL SQ SCH ×4 (08:18→21:00)
[2019-12-30] MEDS: METFORMIN HCL 500 MG TAB PO SCH ×2 (08:19→17:38)
[2019-12-30] MEDS: AZATHIOPRINE 50 MG TAB PO SCH ×3 (08:27→21:20)
[2019-12-30] MEDS: METHYLPREDNISOLONE SOD SUCC 125 MG/2ML VIAL IV SCH (08:27)
[2019-12-30] MEDS ORDERED: DEXTROSE 50% SYRINGE 50 ML IV PRN (08:45)
--- NOTE | 2019-12-30 08:54 | NUR ---
spoke with Dr. Cabrera at bedside. he states okay for pt to restart taking her Esbriet (pt provided own med from home). informed him of Vanc trough level, states okay to give third dose.
[2019-12-30] MEDS: VANCOMYCIN 1GM/NS 250 ML 250 ML IV SCH ×2 (09:20→22:00)
[2019-12-30] MEDS: SITAGLIPTIN 100 MG TAB PO SCH (09:27)
--- NOTE | 2019-12-30 09:50 | Progress Note ---
DATE: 12/30/2019 CHIEF COMPLAINT/HISTORY OF PRESENT ILLNESS: This is an 79-year-old woman, whose primary diagnosis is sepsis secondary to urinary tract infection. The patient underwent a chest x-ray this morning that revealed chronic reticular opacities compatible with fibrotic changes, but more essentially unchanged. The patient's urine culture reveals gram-negative ember bacterial species greater than 100,000 colony- forming units/mL urine. The patient's white blood cell count today 6200 with 87% segmented neutrophils. The patient states she is breathing much better. REVIEW OF SYSTEMS: As per HPI. PHYSICAL EXAMINATION: GENERAL: She is awake, alert, and oriented. She does get confused easily. Her adult daughter is at bedside. VITAL SIGNS: Blood pressure is 142/62, pulse 90, respiratory rate 16, temperature 96.5, oxygen saturation 96% on room air, and BMI 28. INTEGUMENT: Skin is warm and dry. No pallor, jaundice, or diaphoresis. HEENT: Anterior sclerae. Moist mucous membranes. NECK: Supple. No evidence of jugular venous distention. CARDIOVASCULAR: Distant heart sounds. Regular rate and rhythm with a systolic ejection murmur. LUNGS: No rales. No rhonchi or wheezes. The patient has moderate air entry bilaterally. ABDOMEN: Benign. EXTREMITIES: No edema or deformity. DIAGNOSES: 1. Sepsis secondary to gram-negative ember UTI, resolving. 2. Gram-negative UTI. 3. Interstitial lung disease. 4. Scleroderma. 5. Type 2 diabetes mellitus with neuropathy. 6. Mild cognitive impairment. 7. Bronchiectasis. 8. Recurrent urinary tract infections (at least five urinary tract infections in the last 12 months). PLAN: 1. Consult urology, since the patient has recurrent urinary tract infections. 2. Follow urine culture. 3. Continue intravenous cefepime and vancomycin for the patient's urinary tract infection. 4. Wean the patient off intravenous methylprednisone because of her hyperglycemia. 5. Glucose control. 6. Respiratory care. I spent 30 minutes in the care of this patient. MD SHEILA Rivers/MARITZA /[id number] RICARDO
--- NOTE | 2019-12-30 13:02 | NUR ---
Discontinuing PT services since patient is Mod I in functional mobility. Thank you. Addendum: 12/30/19 at 1304 by James chirinos PT Amended: Links added.
[2019-12-30] MEDS: PIRFENIDONE 801 MG PO SCH ×2 (13:51→17:38)
--- NOTE | 2019-12-30 19:08 | Progress Note ---
DATE: 12/30/2019 SUBJECTIVE: The patient feels better. She has less dyspnea and less congestion. Her urine is growing out greater than 100,000 gram-negative rods. She also had some hyperglycemia. Her Solu-Medrol was stopped by Dr. Cabrera because of the hyperglycemia. PHYSICAL EXAMINATION: VITAL SIGNS: Stable. HEENT: Shows no facial swelling or erythema. CARDIAC: Reveals regular rate and rhythm with normal S1 and S2. LUNGS: Auscultation of lungs reveals clear breath sounds bilaterally. There is no wheezing. ABDOMEN: Soft and nontender. There is no rebound or guarding. EXTREMITIES: Shows no leg edema or calf tenderness. There is no cyanosis or clubbing. IMPRESSION: 1. Bronchiectasis with acute exacerbation. 2. Urinary tract infection with gram-negative rods and secondary sepsis, present on admission. 3. Pulmonary fibrosis with usual interstitial pneumonitis pattern. 4. Scleroderma. 5. Gastroesophageal reflux. 6. Diabetes. PLAN: 1. Continue current antibiotics. 2. The patient is restarted on Esbriet for her interstitial lung disease. 3. Monitor and control blood sugars. 4. Awaiting Urology consultation. Ottoniel Enamorado MD [facility]/MODL /[id number]
--- NOTE | 2019-12-30 19:15 | NUR ---
Patient received sitting up in bed. Family at bedside. AAO x 4. No acute distress noted. Fall precautions implemented. Patient instructed to call for assistance when needed. Call light within reach.
[2019-12-30] MEDS: LOSARTAN POTASSIUM 100 MG TAB PO SCH (21:00)
[2019-12-30] MEDS: METOPROLOL SUCCINATE 50 MG TAB XL PO SCH (21:00)
[2019-12-30] MEDS: AMLODIPINE BESYLATE 5 MG TAB PO SCH (21:20)
[2019-12-31 00:34] VITALS: BP 128/60
[2019-12-31] MEDS: CEFEPIME 2 GM/NS 0.9% 100 ML 100 ML IV SCH (01:30)
[2019-12-31] MEDS: IPRATROPIUM BROMIDE 0.02% 2.5 ML NEB NEB SCH ×3 (02:50→10:50)
[2019-12-31] MEDS: ALBUTEROL SULF 0.083% NEB SOLN 3 ML NEB NEB SCH ×3 (02:50→10:50)
[2019-12-31 05:25] LABS: BASOPHILS % 0.1 % (0.0-1.0); HEMATOCRIT 30.7 % (34.2-44.1); HEMOGLOBIN 10.4 g/dL (12.0-16.0); LYMPHOCYTES # (AUTO) 1.1 (1.0-3.2); LYMPHOCYTES % 16.4 % (18.0-39.1); MEAN CORPUSCULAR HEMOGLOBIN 32.3 pg (28-32); MEAN CORPUSCULAR HGB CONC 33.9 g/dL (31-35); MEAN CORPUSCULAR VOLUME 95.3 fL (81-99); MONOCYTES # (AUTO) 0.6 (0.2-0.8); MONOCYTES % 7.9 % (4.4-11.3); NEUTROPHILS # (AUTO) 5.2 (2.1-6.9); NEUTROPHILS % 74.6 % (38.7-80.0); PLATELET COUNT 308 x10e3/uL (140-360); RED BLOOD COUNT 3.22 x10e6/uL (3.6-5.1)
[2019-12-31 05:51] LABS: ANION GAP 10.1 mmol/L (8-16); BLOOD UREA NITROGEN 15 mg/dL (7-26); BUN/CREATININE RATIO 22 (6-25); CALCIUM 8.2 mg/dL (8.4-10.2); CARBON DIOXIDE 24 mmol/L (22-29); CHLORIDE 102 mmol/L (98-107); CREATININE, SERUM 0.68 mg/dL (0.57-1.11); EST GLOMERULAR FILTRATION RATE > 60 ML/MIN (60-); GLUCOSE 206 mg/dL (74-118); POTASSIUM 3.1 mmol/L (3.5-5.1); SODIUM 133 mmol/L (136-145)
[2019-12-31 06:30] VITALS: BP 121/61
--- NOTE | 2019-12-31 06:49 | NUR ---
Bed-side shift report given to oncoming nurse.
--- NOTE | 2019-12-31 07:00 | NUR ---
RCD PT AT BED PT IS ALERT AND ORIENTED RESTING ON BED IV PATENT BY SALINE FLUSH BED LOW AND LOCKED CALL LIGHT IN REACH
[2019-12-31] MEDS: INSULIN REGULAR, HUMAN 100 UNIT/1 ML 3ML VIAL SQ SCH ×2 (07:30→11:30)
--- NOTE | 2019-12-31 07:50 | NUR ---
provided ashes for [employer] Sunday per pt's request. ALEXANDREA Couch [facility] O: [phone]
[2019-12-31 08:00] VITALS: BP 118/62
[2019-12-31] MEDS: METFORMIN HCL 500 MG TAB PO SCH (08:00)
[2019-12-31] MEDS: PIRFENIDONE 801 MG PO SCH (08:00)
--- NOTE | 2019-12-31 08:12 | NUR ---
PAGED DR LEVINE TO NOTIFY THE POTASSIUM LEVEL
--- NOTE | 2019-12-31 08:23 | NUR ---
DR LEVINE RETURNED THE CALL AND GOT NEW ORDERS
[2019-12-31 08:49] VITALS: BP 118/62
[2019-12-31] MEDS: AZATHIOPRINE 50 MG TAB PO SCH (09:00)
[2019-12-31] MEDS: SITAGLIPTIN 100 MG TAB PO SCH (09:00)
[2019-12-31] MEDS ORDERED: POTASSIUM CHLORIDE 20 MEQ TAB CR PO ONE ×2 (09:25→10:30)
[2019-12-31] MEDS: VANCOMYCIN 1GM/NS 250 ML 250 ML IV SCH (10:00)
--- NOTE | 2019-12-31 10:18 | NUR ---
CM to pt's bedside. Spoke with pt regarding home health. Pt stated she just spoke with Dr. Cabrera and he does not think she needs it. Pt declined need at this time. IMM letter delivered and discussed with pt. She verbalized understanding. Stated she's ready to go home. Signed copy placed in chart. Copy to pt's transition of care folder.
--- NOTE | 2019-12-31 10:31 | Discharge Summary ---
ADMIT DIAGNOSES: 1. Interstitial lung disease (pulmonary fibrosis). 2. Scleroderma. 3. Bronchiectasis. 4. Pneumococcal pneumonia, likely. 5. Urinary tract infection. 6. Recurrent urinary tract infection. 7. Type 2 diabetes mellitus with neuropathy. 8. Mild cognitive impairment. DISCHARGE DIAGNOSES: 1. Sepsis secondary to Escherichia coli urinary tract infection, resolved. 2. Escherichia coli urinary tract infection. 3. Scleroderma. 4. Bronchiectasis. 5. Interstitial lung disease. 6. Type 2 diabetes mellitus with neuropathy. 7. Mild cognitive impairment. HOSPITAL COURSE: This is an 79-year-old woman, who initially admitted to [facility] with diagnosis of pneumococcal pneumonia and urinary tract infection. During this hospitalization, repeat chest films did not confirm evidence corroborating pneumonia. Moreover, the patient underwent a CT of the chest without contrast during this hospital stay that revealed changes related to interstitial lung disease that actually worsened when compared to previous imaging studies. The patient, however, was diagnosed with Escherichia coli urinary tract infection during this hospitalization that was confirmed by urine culture revealed greater than 100,000 colony-forming units/mL of urine of E coli bacterial species. The patient improved clinically with intravenous antibiotics, namely cefepime and vancomycin. During this hospitalization, the patient was seen by a hvac manager, namely Dr. Ottoniel Enamorado. The patient's respiratory status improved with intravenous methylprednisone and nebulized bronchodilators. The patient also was restarted on Esbriet for interstitial lung disease. Also, during this hospitalization the patient was seen by urologist namely Dr. Reg Jaramillo because of her recurrent urinary tract infection. CONDITION: Her condition on discharge is stable. DISCHARGE MEDICATIONS: 1. Ciprofloxacin 250 mg twice a day for 10 days. 2. Prednisone 40 mg daily for 5 days. 3. Albuterol/ipratropium nebulizer treatments every 4 hours as needed for shortness of breath or wheezing. 4. Azathioprine 50 mg daily. 5. Amlodipine 5 mg at bedtime. 6. Esbriet 801 mg t.i.d. with meals. 7. Metformin 500 mg b.i.d. 8. Sitagliptin 100 mg daily. 9. Robitussin with codeine 5 mL every 4 hours p.r.n. cough and congestion. 10. Acetaminophen 650 mg every 6 hours p.r.n. fever. 11. Metoprolol succinate 50 mg at bedtime. 12. Losartan 50 mg at bedtime. 13. Zolpidem 5 mg at bedtime p.r.n. insomnia. 14. Vitamin B12, 1000 mcg intramuscular every two weeks. FOLLOWUP INSTRUCTIONS: The patient was instructed to follow up with her primary care physician namely myself, Dr. Fuentes Cabrera within 10 days. The patient will follow up with urologist namely Dr. Reg Jaramillo within 2 weeks. The patient will follow up with Dr. Ottoniel Enamorado, her hvac manager also within 2 weeks. Fuentes Cabrera MD MEO/MODL /[id number] cc: MD Ottoniel Luis MD
[2019-12-31] MEDS ORDERED: CIPRO500 MG PO (11:21)
[2019-12-31] MEDS ORDERED: PREDNISONE20 MG PO (11:22)
--- NOTE | 2019-12-31 11:45 | NUR ---
PAGED AND NOTIFIED THE ECHO REPORT TO DR HOOVER GOT THE ORDER TO DISCHARGE
[2019-12-31 11:47] VITALS: BP 125/58
--- NOTE | 2019-12-31 12:38 | NUR ---
PT WENT HOME IN SAFE CONDITION WITH HER DAUGHTER
--- NOTE | 2019-12-31 19:09 | Consultation ---
DATE OF CONSULTATION: 12/31/2019 REASON FOR CONSULTATION: Shortness of breath. HISTORY OF PRESENT ILLNESS: This is an 79-year-old woman with a history of idiopathic pulmonary fibrosis, chronic diastolic heart failure, scleroderma, gastroesophageal reflux disease, diabetes mellitus, who presented to the emergency department with shortness of breath and cough. Her symptoms occur at rest, are mild to moderate in intensity, no associated chest pain. Upon arrival here, she was noted to be with a urinary tract infection with fibrotic changes in the lungs with mild pulmonary venous congestion. REVIEW OF SYSTEMS: A 12-point review of system was conducted, is negative except as stated above in the HPI. PAST MEDICAL HISTORY: As stated above in the HPI. PAST SURGICAL HISTORY: None recent. PAST FAMILY HISTORY: Noncontributory to current illness. SOCIAL HISTORY: No illicit drug, alcohol, or tobacco use. ALLERGIES: LEVOFLOXACIN. MEDICATIONS: See medications reconciliation form. PHYSICAL EXAMINATION: VITAL SIGNS: Temperature is 97.8, heart rate is 100, respirations are 20, blood pressure is 118/62, oxygen saturation 98% on room air. GENERAL: Well appearing, well built, no apparent distress. Alert and oriented x3. HEAD: Normocephalic and atraumatic. EYES: The extraocular muscles are intact. Conjunctivae are clear. NECK: No JVD. No bruits. CARDIOVASCULAR: She has regular rate and rhythm. No murmurs. LUNGS: Scattered coarse rales throughout both lung babb. ABDOMEN: Soft, nontender, nondistended. EXTREMITIES: No clubbing, cyanosis or edema. VASCULAR : 2+ pulses. SKIN: Warm and dry. Intact. NEUROLOGIC: No focal deficits noted. Cranial nerves are grossly intact. LABORATORY DATA: Sodium 133, potassium 3.1, creatinine 0.6, glucose 195. Chest x-ray shows finding consistent with pulmonary fibrosis. Past echocardiogram showed left ventricular ejection fraction low normal 50% with diastolic dysfunction and RVSP of 42%. Prior cardiac catheterization in 2016 showed no coronary artery disease. IMPRESSION: 1. Bronchitis with bronchiectasis. 2. Pulmonary fibrosis. 3. Urinary tract infection. 4. Scleroderma. 5. Hypertension. 6. Chronic diastolic heart failure. 7. Diabetes mellitus. 8. Gastroesophageal reflux disease. RECOMMENDATIONS: A 2D echocardiogram has been ordered. We will review this once this has been resulted. The patient's current hospitalization does not appear to be cardiac in origin. Continue pulmonary fibrosis and bronchiectasis treatment per Pulmonology and primary care. If needed in the future, we can start low-dose furosemide. DO DENNIS Perez/MODL /[id number]
--- NOTE | 2019-12-31 19:29 | Consultation ---
DATE OF CONSULTATION: 12/30/2019 Urology Consultation. REASON FOR CONSULTATION: Recurrent urinary tract infections. HISTORY OF PRESENT ILLNESS: Jaye Gomez is an 79-year-old woman with recurrent urinary tract infections. She has stress type urinary incontinence. She also thinks she has prolapse of her bladder. She denies any hematuria and currently her dysuria has resolved. The patient is currently admitted for another urinary tract infection. She is on antibiotics and we are awaiting urine culture and sensitivity. PAST MEDICAL/SURGICAL HISTORY: 1. Hypercholesterolemia. 2. Hypertension. 3. Diabetes mellitus. 4. Pulmonary fibrosis. 5. 5, para 5 by spontaneous vaginal delivery. 6. Status post cholecystectomy. 7. Status post right shoulder surgery. SOCIAL HISTORY: The patient has a supportive family at the bedside, a daughter. The patient quit smoking over 30 years ago. She is a retired [employer]. FAMILY HISTORY: Noncontributory to the active urological problems. ALLERGIES: LEVAQUIN. CURRENT MEDICATIONS: Please refer to the MAR. REVIEW OF SYSTEMS: Discussed as above in history of present illness, past medical history, otherwise negative for all systems. PHYSICAL EXAMINATION: GENERAL: Healthy-appearing 79-year-old woman, lying in bed, no apparent distress. She is currently afebrile. VITAL SIGNS: Currently stable. ABDOMEN: Soft, nondistended, nontender without costovertebral angle tenderness. Kidneys not palpable without hepatosplenomegaly. No obvious evidence of hernia. For the remaining physical examination systems, please refer to the admission history and physical as well as the ERT sheet. LABORATORY STUDIES: Urine culture is pending. Blood cultures are preliminarily negative. White blood cell count 6220, hemoglobin 10.5, and platelets 271,000. The patient's sodium is low at 131. Glucose was elevated at 390. PT/PTT unremarkable. Urinalysis shows 21-50 WBCs with moderate sediment and many bacteria. There is no urologically specific imaging in the computer at this time. ASSESSMENT: 1. Recurrent urinary tract infections. 2. Stress type urinary incontinence. 3. Possible cystocele. 4. Atrophic vaginitis. 5. Anemia. 6. Hyponatremia. PLANS: 1. I defer the electrolyte and hematological abnormalities to the admitting physician. 2. Recommend awaiting culture and sensitivity and adjusting the antibiotics accordingly. 3. Once the patient is able to be discharged on culture specific antibiotics, we will follow the patient up in the office at which point I will do urodynamic study. 4. Cystoscopic examination may be warranted in the future. Thank you much for involving us in care of your patient. We will be happy to follow her along with you as well as an outpatient. Reg MD Clint OH/MARITZA /[id number] cc: Fuentes Cabrera MD
== END 2019-12-31 13:18 | disposition home or self-care (01) | DRG 872 ==
LOC: ER 12:28 → ERHOLD 14:46 → MED/SURG2 19:37
PROVIDERS: ADMIT Internal Medicine; ATTEND Internal Medicine
DX: A41.9 Sepsis, unspecified organism (principal); N39.0 Urinary tract infection, site not specified; J47.1 Bronchiectasis with (acute) exacerbation; M34.81 Systemic sclerosis with lung involvement; E87.2 Acidosis; E87.1 Hypo-osmolality and hyponatremia; I13.0 Hypertensive heart and chronic kidney disease with heart failure and stage 1 through stage 4 chronic kidney disease, or unspecified chronic kidney disease; I50.32 Chronic diastolic (congestive) heart failure; B96.20 Unspecified Escherichia coli [E. coli] as the cause of diseases classified elsewhere; J84.10 Pulmonary fibrosis, unspecified; D64.9 Anemia, unspecified; E11.42 Type 2 diabetes mellitus with diabetic polyneuropathy; E11.65 Type 2 diabetes mellitus with hyperglycemia; G31.84 Mild cognitive impairment of uncertain or unknown etiology; J32.9 Chronic sinusitis, unspecified; E55.9 Vitamin D deficiency, unspecified; E03.9 Hypothyroidism, unspecified; E11.22 Type 2 diabetes mellitus with diabetic chronic kidney disease; N18.3 Chronic kidney disease, stage 3 (moderate); N39.3 Stress incontinence (female) (male); N81.10 Cystocele, unspecified; N95.2 Postmenopausal atrophic vaginitis; E78.00 Pure hypercholesterolemia, unspecified; E66.9 Obesity, unspecified; Z68.30 Body mass index [BMI] 30.0-30.9, adult; Z87.891 Personal history of nicotine dependence; Z79.84 Long term (current) use of oral hypoglycemic drugs; Z88.1 Allergy status to other antibiotic agents
CPT/HCPCS: 36415; 71045; 71250; 80048; 80053; 80061; 80202; 81001; 82550; 82553; 82948; 83518; 83605; 83880; 84484; 85025; 85610; 85730; 87040; 87070; 87086; 87186; 87400; 93005; 93306; 94640; 94664; 99284; J0456; J1817; J2930; J3370; J7030

== ENCOUNTER → 2020-09-03 | Outpatient (CLI) | payer MEDICARE ==
[~2020-09-03] MED LIST changes: +CIPRO500 MG PO; +MUPIROCIN22 GM TOP; +NAMENDA5 MG PO; +PREDNISONE20 MG PO; +VITAMIN B-121000 MCG INJ
== END | disposition home or self-care (01) ==
LOC: MRI 13:51
PROVIDERS: ATTEND Psychiatry & Neurology Clinical Neurophysiology
DX: G30.1 Alzheimer's disease with late onset (principal); F02.80 Dementia in other diseases classified elsewhere, unspecified severity, without behavioral disturbance, psychotic disturbance, mood disturbance, and anxiety; I67.82 Cerebral ischemia
CPT/HCPCS: 70551

== ENCOUNTER 2020-10-03 14:52 | Emergency (ER) | payer MEDICARE ==
[~2020-10-03] VITALS: Ht 302.3 cm; Wt 63.5 kg
[~2020-10-03 14:52] MED LIST changes: -NAMENDA5 MG PO
[2020-10-03] MEDS ORDERED: NAMENDA5 MG PO (15:09)
--- OUTSIDE RECORDS SUMMARY | 2020-10-03 15:12 | XMS REPORT | Continuity of Care Document ---
Author Author [facility] t Organization [facility] Address [address] [place] [address] Phone Unavailable Care Team Providers Care Hogshead Dumper Name Role Phone SAPNA CABRERA MD PCP JUAN SOLANO Attphys Unavailable SAPNA CABRERA Attphys Unavailable MICHAEL ARCOS Attphys Unavailable Yonatan Kahn Attphys Unavailable DARI ENAMORADO Attphys Unavailable Gema MATTHEWS Attphys Unavailable Kev Nagel Attphys SAPNA CABRERA Admphys Unavailable Payers Payer Name Policy Type Policy Number Effective Date Expiration Date S ource Medicare A & B [id number] 2004 00:00:00 [facility] Problems Condition Name Condition Details Condition Category Status Onset Date Resolution Date Last Treatment Date Treating Clinician Comments Source DX: M25.50=PAIN IN UNSPECIFIED JOINT /M3 DX: M25.50=PAIN IN UNSPECIFIED JOINT /M3 Active 03/19/2019 [facility] 2019-03-19 00:00:00 2019-04-15 09:06:00 M sherri Almeida UNK UNK Active 09/11/2016 [facility] Active 2016-09-11 00:00:00 2016-10-03 07:49:00 M sherri Almeida Bronchitis Bronchitis Problem Active [facility] Fibrosis of lung Pulmonary fibrosis Problem Active [facility] Urinary tract infection UTI (urinary tract infection) Problem Active [facility] Diabetes mellitus (disorder) D iabetes mellitus (disorder) Active Problem 04/17/2019 [facility] Problem Active 2019-04-17 22:59:21 Martha Almeida Dyspnea on exertion (finding) Dyspnea on exertion (finding) Active Problem 04/17/2019 [facility] Problem Active 2019-04-17 22:59:21 Martha Almeida Hypertensive disorder, systemic arterial (disorder) Hypertensive disorder, systemic arterial (disorder) Active Problem 04/17/2019 [facility] Problem Active 2019-04-17 22:59:21 Martha Almeida Pulmonary fibrosis Pulm onary fibrosis Active Problem 02/13/2020 Mukund Pappas Problem Active 2020-02-13 03:08:46 Martha Almeida 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/2020 Mukund Pappas Diagnosis Active 2020-02-13 03:08:46 Martha Almeida 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 sicca of both eyes not due to Sjogren''s syndrome Active Problem 02/13/2020 Mukund Pappas Problem Active 2020-02-13 03:08:46 Martha Almeida Vitamin D deficiency Samantha min D deficiency Active Problem 02/13/2020 Mukund Pappas Problem Active 2020-02-13 03:08:46 Martha lAmeida Polyarthralgia Poly arthralgia Active Diagnosis 02/13/2020 Mukund Pappas Diagnosis Active 2020-02-13 03:08:46 Martha Almeida Memory loss Kristofer ry loss Active Problem 02/13/2020 Mukund Pappas Problem Active 2020-02-13 03:08:46 Martha Almeida Cough Coug h Active Diagnosis 02/13/2020 Mukund Pappas Diagnosis Active 2020-02-13 03:08:46 Martha Almeida 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 02/13/2020 Mukund Pappas Diagnosis Active 2020-02-13 03:08:46 Martha Almeida 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 N.K.LgA. N.KShakira Active Info Not Available 2019-06-10 00:00:00 [facility] No Known Allergies DA Active U 2013-05-26 00:00:00 [facility] No Known Medication Allergies No Known Medication Allergies Active [facility] Social History Smoking Status Start Date Stop Date Source Social History 2016-10-02 21:12:14 2016-10-02 21:12:14 [facility] Medications Ordered Medication Name Filled Medication Name Start Date Stop Da te Current Medication? Ordering Clinician Indication Dosage Frequency Signature (SIG) Comments Components Source Refresh Optive 2020-02-13 03:08:46 Yes Javan Pappas 1 drop into affected eye as needed [facility] Cyanocobalamin 2020-02-13 03:08:46 Yes Javan Pappas 1 ml [facility] Benzonatate 2020-02-13 03:08:46 Yes Javan Pappas 1 capsule as needed [facility] Januvia 2020-02-13 03:08:46 Yes Javan Pappas 1 t ablet [facility] Metformin HCl 2020-02-13 03:08:46 Yes Javan Pappas 2 tablet with a meal [facility] Esbriet 2020-02-13 03:08:46 Yes Javan Pappas 3 capsules with food [facility] Symbicort 2020-02-13 03:08:46 Yes Javan Pappas 2 puffs [facility] Vitamin D3 2020-02-13 03:08:46 Yes Javan Pappas 2 tablets [facility] Iron 2020-02-13 03:08:46 Yes Javan Pappas 1 tabl et [facility] Omeprazole 2020-02-13 03:08:46 Yes Javan Pappas 1 capsule [facility] Metoprolol Tartrate 2020-02-13 03:08:46 Yes Javan Chago r 1 tablet with food [facility] Amlodipine Besylate 2020-02-13 03:08:46 Yes Javan Pappas 1 tablet [facility] Losartan 2020-02-13 03:08:46 Yes Javan Pappas 1 tablet [facility] [place] Azathioprine 2020-02-13 03:08:46 Yes Javan Pappas TAKE 1 TABLET BY MOUTH TWICE DAILY DIRECTED [facility] Azithromycin 2020-02-13 03:08:46 Yes Javan Pappas 1 tablet [facility] [place] Magnesium 2019-10-13 03:45:23 Yes Javan Pappas 1 capsule with a meal [facility] Vitamin D (Ergocalciferol) 2019-10-10 00:00:00 Yes Florentini p Pappas 1 capsule [facility] Vitamin D (Ergocalciferol) 2019-10-09 00:00:00 Yes Florentini p Pappas 1 capsule [facility] Azathioprine 2019-09-09 00:00:00 Yes Javan Pappas 1 tablet [facility] Tessalon Perles 2019-06-10 00:00:00 Yes Javan Pappas 1 capsule as needed [facility] Vitamin D (Ergocalciferol) 2019-03-31 02:45:28 Yes Amberly a Kahn 1 capsule [facility] Ranitidine HCl 2019-03-31 02:45:28 Yes Ania Kahn 1 capsule [facility] Ferrous Sulfate 2019-03-31 02:45:28 Yes Ania Kahn as directed [facility] GlipiZIDE-Metformin HCl 2019-03-31 02:45:28 Yes Ania W allace 2 tablet with a meal [facility] Mag Oxide-Vit D3-Turmeric 2019-03-31 02:45:28 Yes Ania Kahn as directed [facility] Flonase 2019-03-31 02:45:28 Yes Ania Kahn 1 spray in each nostril [facility] PredniSONE 2018-12-30 00:00:00 Yes Javan Pappas 1 tablets [facility] PredniSONE 2018-12-30 00:00:00 Yes Ania Kahn 1 tablets [facility] Co-Q10 200 mg oral tablet 2016-10-02 21:04:00 Yes PO, Daily, 0 Refill(s) [facility] Fish Oil 1200 mg oral capsule 2016-10-02 21:04:00 Yes 1,200 mg = 1 cap, PO, Daily, 0 Refill(s) [facility] aspirin 81 mg tablet, enteric coated 2016-10-02 21:02:00 Ye s 81 mg = 1 tab, PO, Daily, # 90 tab, 3 Refill(s) Martha Almeida Vitamin D2 50,000 intl units oral capsule 2016-10-02 21:01:00 Yes 50,000 IntlUnit = 1 cap, PO, Q7D, # 24 cap, 0 Refill(s) Martha Ponceann atorvastatin 10 mg oral tablet 2016-10-02 21:01:00 Yes 10 mg = 1 tab, PO, Bedtime, # 30 tab, 0 Refill(s) Martha Almeida amLODIPine 2.5 mg oral tablet 2016-10-02 21:01:00 Yes 2.5 mg = 1 tab, PO, Daily, # 30 tab, 0 Refill(s) Me gladys Ponceann Atenolol 100 MG Oral Tablet 2016-10-02 21:00:00 Yes 100 mg = 1 tab, PO, Daily, # 30 tab, 0 Refill(s) Joyce Ponceann lisinopril 40 mg oral tablet 2016-10-02 21:00:00 Yes 40 mg = 1 tab, PO, Daily, # 30 tab, 0 Refill(s) Joyce Ponceann allopurinol 100 mg oral tablet 2016-10-02 20:59:00 Yes 100 mg = 1 tab, PO, Daily, # 90 tab, 1 Refill(s) Me gladys Alme[place] sitagliptin 100 MG Oral Tablet [Januvia] 2016-10-02 20:58:00 Yes 100 mg = 1 tab, PO, Daily, # 30 tab, 0 Refill(s) Martha Almeida Glipizide 5 MG / Metformin hydrochloride 500 MG Oral Tablet 2016-10-02 20:58:00 Yes 2 tab, PO, BID-Meals, # 60 ta b, 0 Refill(s) [facility] [place] Albuterol Sulfate 0.63 Mg/3 Ml Vial.neb Albuterol Sulfate 0. 63 Mg/3 Ml Vial.neb Yes As Needed [facility] Amlodipine Besylate 5 Mg Tablet Amlodipine Besylate 5 Mg Tablet Yes 5 Bedtime [facility] Azathioprine 50 Mg Tab Azathioprine 50 Mg Tab Yes 50 Three Times A Day [facility] Ciprofloxacin Hcl (Cipro) 500 Mg Tablet Ciprofloxacin Hcl (C ipro) 500 Mg Tablet Yes 250 Every 12 Hours [facility] Cyanocobalamin (Vitamin B-12) 1,000 Mcg Tab Cyanocobal jara (Vitamin B-12) 1,000 Mcg Tab Yes 1000 Lead Systems Analyst [facility] Losartan Potassium 25 Mg Tablet Losartan Potassium 25 Mg Tablet Yes 50 Bedtime [facility] Metformin Hcl 500 Mg Tablet Metformin Hcl 500 Mg Tablet Yes 500 Twice A Day [facility] Metoprolol Succinate 50 Mg Tab.er.24h Metoprolol Succinate 50 Mg Ta b.er.24h Yes 100 Bedtime [facility] Pirfenidone (Esbriet) 801 Mg Tablet Pirfenidone (Esbriet) 801 Mg Tabl et Yes 801 Twice A Day [facility] Prednisone 20 Mg Tab Prednisone 20 Mg Tab Yes 40 Daily [facility] Sitagliptin Phosphate (Januvia) 100 Mg Tablet Sitaglip tin Phosphate (Januvia) 100 Mg Tablet Yes 100 Daily [facility] Vitamin B12 Vitamin B12 Yes Q 2 Weeks [facility] Mupirocin 22 Gm Oint...g., 22 Gm Topically Mupirocin 2 2 Gm Oint...g., 22 Gm Topically 2019-12-31 00:00:00 No 22 Twice A Day [facility] Pirfenidone (Esbriet) 801 Mg Tablet, 101 Oral Pirfeni done (Esbriet) 801 Mg Tablet, 101 Oral 2019-12-31 00:00:00 No 101 Three Times A Day [facility] Prednisone 5 Mg Tablet, 5 Mg Oral Prednisone 5 Mg Tablet, 5 Mg O ral 2019-12-31 00:00:00 No 5 Daily [facility] Benzonatate (Tessalon Perle) 100 Mg Capsule, 100 Mg Or al Benzonatate (Tessalon Perle) 100 Mg Capsule, 100 Mg Oral 2019-12-28 00:00:00 No 100 As Needed [facility] Budesonide/Formoterol Fumarate (Symbicor t 160-4.5 Mcg Inhaler) 10.2 Gm Hfa.aer.ad, 2 Inh Inhalation Budesonide/Formoterol Fumarate (Symbicor t 160-4.5 Mcg Inhaler) 10.2 Gm Hfa.aer.ad, 2 Inh Inhalation 2019-12-28 00:00:00 No 2 Daily [facility] Omeprazole 40 Mg Capsule., 40 Mg Oral Omeprazole 40 Mg Cap zana., 40 Mg Oral 2019-12-28 00:00:00 No 40 Daily [facility] Allopurinol 100 Mg Tablet, 1 Mouth/Throat Allopurinol 100 Mg Tablet, 1 Mouth/Throat 2019-10-16 00:00:00 No 1 Daily [facility] Atenolol/Chlorthalidone (Atenolol-Chlort halidone 100-25) 1 Each Tablet, 1 Mouth/Throat Atenolol/Chlorthalidone (Atenolol-Chlort halidone 100-25) 1 Each Tablet, 1 Mouth/Throat 2019-10-16 00:00:00 No 1 Daily [facility] Glyburide, Micro/Metformin Hcl (Glyburid -Metformin 5-500 Mg Tb) 1 Each Tablet, 2 Mouth/Throat Glyburide, Micro/Metformin Hcl (Glyburid -Metformin 5-500 Mg Tb) 1 Each Tablet, 2 Mouth/Throat 2019-10-16 00:00:00 No 2 Twice A Day [facility] Lisinopril 40 Mg Tablet, 1 Mouth/Throat Lisinopril 40 Mg Tablet, 1 Mouth/Throat 2019-10-16 00:00:00 No 1 Daily [facility] Simvastatin 20 Mg Tablet, 1 Mouth/Throat Simvastatin 20 Mg Tablet, 1 Mouth/Throat 2012-05-02 00:00:00 No 1 Daily [facility] Vital Signs Vital Name Observation Time Observation Value Comments Source Weight 2019-10-09 21:30:00 [facility] Height 2019-10-09 21:30:00 [facility] Temperature Oral (F) 2019-10-09 21:30:00 98.0 F [facility] Heart Rate 2019-10-09 21:30:00 [facility] Diastolic (mm Hg) 2019-10-09 21:30:00 [facility] Systolic (mm Hg) 2019-10-09 21:30:00 Kristofer rial [place] Weight 2019-06-10 20:30:00 [facility] Height 2019-06-10 20:30:00 [facility] [place] Temperature Oral (F) 2019-06-10 20:30:00 97.9 F [facility] Heart Rate 2019-06-10 20:30:00 [facility] Diastolic (mm Hg) 2019-06-10 20:30:00 [facility] Systolic (mm Hg) 2019-06-10 20:30:00 Kristofer [facility] [address] Height 2019-04-15 14:26:00 160.02 cm [facility] [place] Weight 2019-04-15 14:26:00 [facility] [place] BMI Calculated 2019-04-15 14:26:00 [facility] [place] Weight 2019-03-11 20:00:00 [facility] Height 2019-03-11 20:00:00 [facility] [address] [facility] Temperature Oral (F) 2019-03-11 20:00:00 97.6 F [facility] [place] Heart Rate 2019-03-11 20:00:00 [facility] [place] Diastolic (mm Hg) 2019-03-11 20:00:00 [facility] [address] [facility] Systolic (mm Hg) 2019-03-11 20:00:00 Kristofer rial [place] Respitory Rate 2016-10-02 21:14:00 [facility] [place] Systolic (mm Hg) 2016-10-02 21:14:00 Kristofer rial [place] Diastolic (mm Hg) 2016-10-02 21:14:00 [facility] [place] Heart Rate 2016-10-02 21:14:00 [facility] [place] Temperature Oral (F) 2016-10-02 21:14:00 97.6 F [facility] Weight 2016-10-02 21:05:00 [facility] BMI Calculated 2016-10-02 21:05:00 [facility] [place] Height 2016-10-02 21:05:00 157.48 cm [facility] [place] Procedures Procedure Date / Time Performed Performing Clinician [facility] Computed tomography of chest without contrast 2019-12-28 00:00:0 0 DARI ENAMORADO [facility] EGD BIOPSY SINGLE/MULTIPLE 2019-10-17 00:00:00 [facility] COLONOSCOPY AND BIOPSY 2019-10-17 00:00:00 TATO [facility] Ultrasound, renal 2019-07-25 00:00:[facility]ound examination of pelvis, limited or follow-up 07-25 00:00:00 MELIAMICHAEL [facility] CEIOL - Cataract extraction and insertion of intraocular lens [facility] Cholecystectomy [facility] Repair of rotator cuff of shoulder [facility] Encounters Start Date/Time End Date/Time Encounter Type Admission Type [facility] Care Department Encounter ID Source 2019-12-28 14:46:00 2019-12-31 13:18:00 Discharged Inpatient [address] [facility] [id number] [facility] 2019-10-17 13:56:00 2019-10-17 13:56:00 Registered Surgical Day Care [facility] [id number] [facility] 2019-10-13 16:40:00 2019-10-13 16:40:00 Outpatient Javan Pappas MD [place] [id number] Mukund Pappas MD 2019-10-10 12:47:00 2019-10-10 12:47:00 Outpatient MD BAILEY Armando MD [place] [id number] MEHRDAD Pappas MD 2019-10-09 16:18:00 2019-10-09 16:18:00 Outpatient MD BAILEY Armando MD [place] [id number] MEHRDAD Pappas MD 2019-10-09 15:30:00 2019-10-09 15:30:00 Outpatient MD BAILEY Armando MD [place] [id number] Mukund Pappas MD 2019-07-25 13:28:00 2019-07-25 13:28:00 Registered Clinic [address] [facility] [id number] [facility] 2019-06-10 15:30:00 2019-06-10 15:30:00 Outpatient MD BAILEY Armando MD [place] [id number] Mukund Pappas MD 2019-04-15 09:06:00 2019-04-15 23:59:00 Outpatient Ania Kahn [facility] [id number] 2019-04-15 09:06:00 2019-04-15 09:06:00 Outpatient [id number] 2019-03-11 15:00:00 2019-03-11 15:00:00 Outpatient Javan Pappas MD [place] [id number] Mukund Pappas MD 2016-10-03 07:49:00 2016-10-03 15:13:00 Outpatient Sandeep Nagel [facility] [id number] Results Test Description Test Time Test Comments Results Result Comments Source MRI BRAIN 2020-09-03 15:45:00 [facility] : 1940 Sex: F [place] [id number] Patient Name: VEDA ADAMS MR #: [id number] : 1940 Age/Sex: 80/F Req #: [id number] [facility] Physician: Ordered by: JUAN SOLANO MD Report #: [id number] Location: MRI Room/Bed: Procedure: [id number] MRI/MRI BRAIN WO Exam Date: Exam Time: REPORT STATUS: Signed EXAMINATION: MRI of the brain without contrast. HISTORY: Memory loss, Alzheimer's disease COMPARISON: Brain MRI 05/03/2018 TECHNIQUE: Sagittal T1 ultrathin slice with coronal and axial reformations; axial DWI, T2, FLAIR, T2 gradient echo. FINDINGS: DEMENTIA: Structural lesion: No intra- or extra-axial mass or hematoma. Ventricles: No hydrocephalus. Estrada matter signal intensity: Cortex: Unremarkable. Basal ganglia: Unremarkable. Thalami: Unremarkable. White matter signal intensity: Cerebral: Unchanged few scattered and mildly confluent periventricular white matter T2 hyperintense foci, most likely age related white matter chronic hematoma or ischemic changes. Brainstem: Unremarkable. Mamillary bodies/fornices and hippocampi: No atrophy or abnormal signal. Microhemorrhages: None. Atrophy: Global: Symmetric and age-appropriate. Focal: Persistent slightly disproportion bilateral parietal cortical volume loss. Otherwise no disproportionate lobar, hippocampal, mesencephalic, pontine, or cerebellar atrophy. Vessels: Expected flow voids present in the major arteries and dural sinuses. Sella: Unremarkable. OTHER: Subarachnoid spaces: No abnormal signal intensity. Foramen magnum: Unremarkable. Skull: Unremarkable. Paranasal / mastoid sinuses: Minimal mucosal inflammatory thickening of the right maxillary sinus is unchanged. IMPRESSION: 1. Stable mild chronic microvascular ischemic changes compared to MRI of 05/03/2018 . 2. Stable mild bilateral parietal volume loss. Signed by: Dr. Andrea Goel M.D. on 09/03/2020 3:49 PM Dictated By: ANDREA GOEL MD 48 Transcribed By: RAULITO on 09/03/201548 COPY TO: JUAN SOLANO MD Bedside Glucose 2019-12-31 12:00:00 Test Item Bedside Glucose (test code = 06026-1) 107 70-120 Meter ID: [id number] [facility] 2019-12-31 10:48:00* Test Item Value Reference Range Interpretation Comments Urine Culture (test code = 630-4) No Result Data Provided [facility] [id number] 05:51:00* Test Item Value Reference Range Interpretation Comments Sodium Level (test code = 2951-2) 133 136-145 L [facility] CenterPotassium [id number] 05:51:00* Test Item Value Reference Range Interpretation Comments Potassium Level (test code = 2823-3) 3.1 3.5-5.1 L [facility] CenterChloride [id number] 05:51:00* Test Item Value Reference Range Interpretation Comments Chloride Level (test code = 2075-0) 102 98-107 [facility] CenterCarbon Dioxide [id number] 05:51:00* Test Item Value Reference Range Interpretation Comments Carbon Dioxide Level (test code = 2028-9) 24 - [facility] CenterAnion [id number] 05:51:00* Test Item Value Reference Range Interpretation Comments Anion Gap (test code = 77728-9) 10.1 8-16 [facility] CenterBlood Urea [id number] 05:51:00* Test Item Value Reference Range Interpretation Comments Blood Urea Nitrogen (test code = 3094-0) 15 7-26 [facility] CenterCreatinine2020-02-26 05:51:00* Test Item Value Reference Range Interpretation Comments Creatinine (test code = 2160-0) 0.68 0.57-1.11 [facility] CenterBUN/Creatinine [id number] 05:51:00* Test Item Value Reference Range Interpretation Comments BUN/Creatinine Ratio (test code = 3097-3) 22 6- [facility] CenterEstimat Glomerular Filtration Rate 2019-12-31 05:51:00* Test Item Value Reference Range Interpretation Comments Estimat Glomerular Filtration Rate (test code = 400531979) > 60 >60 Ranges were taken from the National Kidney Disease Education Program and the Wanda replaced by [facility] Kidney Foundation literature.Reference ranges:60 or greater: Dwqwfd20-10 ( for 3 consecutive months): Chronic kidney disease 15 or less: Kidney failureMichael E. [facility]Bakey [facility] of [facility] Medical CenterGlucose [id number] 05:51:00* Test Item Value Reference Range Interpretation Comments Glucose Level (test code = MRC1120) 206 74-118 H [facility] CenterCalcium [id number] 05:51:00* Test Item Value Reference Range Interpretation Comments Calcium Level (test code = 32710-0) 8.2 8.4-10.2 L [facility] CenterWhite Blood Pvywr7463-72-23 05:29:00* Test Item Value Reference Range Interpretation Comments White Blood Count (test code = 6690-2) 6.94 4.8-10.8 [facility] CenterRed Blood Ldtdm5217-02-72 05:29:00* Test Item Value Reference Range Interpretation Comments Red Blood Count (test code = 789-8) 3.22 3.6-5.1 L [facility] CenterHemoglobin2020-02-26 05:29:00* Test Item Value Reference Range Interpretation Comments Hemoglobin (test code = 11561-4) 10.4 12.0-16.0 L [facility] CenterHematocrit2020-02-26 05:29:00* Test Item Value Reference Range Interpretation Comments Hematocrit (test code = 4544-3) 30.7 34.2-44.1 L [facility] CenterMean Corpuscular Wrbrvw6145-50-95 05:29:00* Test Item Value Reference Range Interpretation Comments Mean Corpuscular Volume (test code = 787-2) 95.3 81-99 [facility] CenterMean Corpuscular Jyukuumxbo1760-91-65 05:29:00* Test Item Value Reference Range Interpretation Comments Mean Corpuscular Hemoglobin (test code = 785-6) 32.3 28-32 H [facility] CenterMean Corpuscular Hemoglobin Concent 2019-12-31 05:29:00* Test Item Value Reference Range Interpretation Comments Mean Corpuscular Hemoglobin Concent (test code = 786-4) 33.9 31-35 [facility] CenterRed Cell Distribution Gbydo6082-26-81 05:29:00* Test Item Value Reference Range Interpretation Comments Red Cell Distribution Width (test code = 84454-1) 14.0 11.7 -14.4 [facility] CenterPlatelet Kjetf3498-95-60 05:29:00* Test Item Value Reference Range Interpretation Comments Platelet Count (test code = 777-3) 308 140-360 [facility] CenterNeutrophils (%) (Auto)2019-12-31 05:29:00 * Test Item Value Reference Range Interpretation Comments Neutrophils (%) (Auto) (test code = 03569-3) 74.6 38.7-80.0 [facility] CenterLymphocytes (%) (Auto)2019-12-31 05:29:00 * Test Item Value Reference Range Interpretation Comments Lymphocytes (%) (Auto) (test code = 736-9) 16.4 18.0-39.1 L [facility] [facility] CenterMonocytes (%) (Auto)2019-12-31 05:29:00* Test Item Value Reference Range Interpretation Comments Monocytes (%) (Auto) (test code = 5905-5) 7.9 4.4-11.3 [facility] CenterEosinophils (%) (Auto)2019-12-31 05:29:00 * Test Item Value Reference Range Interpretation Comments Eosinophils (%) (Auto) (test code = 713-8) 0.0 0.0-6.0 [facility] CenterBasophils (%) (Auto)2019-12-31 05:29:00* Test Item Value Reference Range Interpretation Comments Basophils (%) (Auto) (test code = 706-2) 0.1 0.0-1.0 [facility] CenterIM GRANULOCYTES %2019-12-31 05:29:00* Test Item Value Reference Range Interpretation Comments IM GRANULOCYTES % (test code = IM GRANULOCYTES %) 1.0 0.0- 1.0 [facility] CenterNeutrophils # (Auto)2019-12-31 05:29:00* Test Item Value Reference Range Interpretation Comments Neutrophils # (Auto) (test code = 751-8) 5.2 2.1-6.9 [facility] CenterLymphocytes # (Auto)2019-12-31 05:29:00* Test Item Value Reference Range Interpretation Comments Lymphocytes # (Auto) (test code = 01438-0) 1.1 1.0-3.2 [facility] CenterMonocytes # (Auto)2019-12-31 05:29:00* Test Item Value Reference Range Interpretation Comments Monocytes # (Auto) (test code = 742-7) 0.6 0.2-0.8 [facility] CenterEosinophils # (Auto)2019-12-31 05:29:00* Test Item Value Reference Range Interpretation Comments Eosinophils # (Auto) (test code = 711-2) 0.0 0.0-0.4 [facility] CenterBasophils # (Auto)2019-12-31 05:29:00* Test Item Value Reference Range Interpretation Comments Basophils # (Auto) (test code = 704-7) 0.0 0.0-0.1 [facility] CenterAbsolute Immature Granulocyte (auto 2019-12-31 05:29:00* Test Item Value Reference Range Interpretation Comments Absolute Immature Granulocyte (auto (zhen t code = Absolute Immature Granulocyte (auto) 0.07 0-0.1 [facility] CenterBlood Jgoxvqx4007-11-22 13:43:00* Test Item Value Reference Range Interpretation Comments Blood Culture (test code = 93625734) NO GROWTH AFTER 48 HOURS [facility] CenterVancomycin Level Qjuyeh7984-83-12 08:44:00* Test Item Value Reference Range Interpretation Comments Vancomycin Level Trough (test code = 4092-3) 12.6 5.0-10.0 Results repeated and called to Linda Arellano at 0843 on 12/30/19 by Zander Lombardo. Read back and verified.[facility] CenterTotal Vnnfmhwpk1222-38-03 05:56:00* Test Item Value Reference Range Interpretation Comments Total Bilirubin (test code = 1975-2) 0.5 0.2-1.2 [facility] CenterAspartate Amino Transf (AST/SGOT) 2019-12-30 05:56:00* Test Item Value Reference Range Interpretation Comments Aspartate Amino Transf (AST/SGOT) (test code = Aspartate Amino Transf (AST/SGOT)) 16 5-34 [facility] CenterAlanine Aminotransferase (ALT/SGPT) 2019-12-30 05:56:00* Test Item Value Reference Range Interpretation Comments Alanine Aminotransferase (ALT/SGPT) (test code = 1742-6) 6 0-55 [facility] CenterTotal Rokpuqk8468-22-49 05:56:00* Test Item Value Reference Range Interpretation Comments Total Protein (test code = 2885-2) 6.1 6.5-8.1 L [facility] CenterAlbumin2020-02-25 05:56:00* Test Item Value Reference Range Interpretation Comments Albumin (test code = 1751-7) 2.9 3.5-5.0 L [facility] CenterGlobulin2020-02-25 05:56:00* Test Item Value Reference Range Interpretation Comments Globulin (test code = 53063-1) 3.2 2.3-3.5 [facility] CenterAlbumin/Globulin Ywfaw9665-67-97 05:56:00 * Test Item Value Reference Range Interpretation Comments Albumin/Globulin Ratio (test code = 1759-0) 0.9 0.8-2.0 [facility] CenterAlkaline Fjozobcxrdy0906-29-20 05:56:00* Test Item Value Reference Range Interpretation Comments Alkaline Phosphatase (test code = 6768-6) 73 40-150 [facility] CenterCHEST SINGLE (PORTABLE)2019-12-30 05:44:00 [facility] [address] [address] Patient Name: VEDA ADAMS MR #: [id number] : 1940 Age/Sex: 79/F Req #: [id number] Adm Physician: SAPNA CABRERA MD Ordered by: SAPNA CABRERA MD Report #: [id number] Location: MED/SURG2 Room/Bed: [facility] Procedure: [id number] DX/CHEST SINGLE (PORTABLE) Exam Date: Exam Time: REPORT STATUS: Signed Examinatio n: Single AP view of the chest. COMPARISON: 12/28/2019 INDICATION: Pulm onary fibrosis and pneumonia DISCUSSION: See impression IMPRESSION: The lungs remain well-inflated. No interval change in coarse reticular opacities compatible with fibrotic changes seen to better advantage on comparison chest CT. No new consolidations. Stable cardiomediastinal contour when accounting for differences in technique. No acute osseous abno rmality. Signed by: Dr. Heather Corey M.D. on 12/30/2019 5:45 AM Dic tated By: HEATHER COREY MD 4 COPY TO: SAPNA CABRERA MD Creatine Kinase EF8259-43-12 15:34:00* Test Item Value Reference Range Interpretation Comments Creatine Kinase MB (test code = 53055-9) 1.50 0-5.0 [facility] CenterTroponin Q4063-35-74 15:34:00* Test Item Value Reference Range Interpretation Comments Troponin I (test code = ZMK1953) 0.011 0-0.300 [facility] CenterCreatine Wltcvk0220-83-62 15:23:00* Test Item Value Reference Range Interpretation Comments Creatine Kinase (test code = 2157-6) 61 29-168 [facility] CenterTriglycerides Aruap1743-87-73 05:59:00* Test Item Value Reference Range Interpretation Comments Triglycerides Level (test code = 2571-8) 67 0-149 [facility] CenterCholesterol Xyawc4920-72-03 05:59:00* Test Item Value Reference Range Interpretation Comments Cholesterol Level (test code = 2093-3) 175 0-199 Less than 200 mg/dL Low Jkzo560 - 239 mg/dL Borderline Htnq020 m g/dl and greater High Risk [facility] CenterLDL Akqapmtkyzf9350-33-17 05:59:00* Test Item Value Reference Range Interpretation Comments LDL Cholesterol (test code = 2089-1) 113 60-130 [facility] CenterHDL Sgiffuawhpa3795-30-82 05:59:00* Test Item Value Reference Range Interpretation Comments HDL Cholesterol (test code = 2085-9) 49 40-60 [facility] CenterCholesterol/HDL Ltgbk1988-45-75 05:59:00 * Test Item Value Reference Range Interpretation Comments Cholesterol/HDL Ratio (test code = 9830-1) 3.6 3.0-3.6 [facility] CenterLactic Acid Ffrtl9211-29-91 05:42:00* Test Item Value Reference Range Interpretation Comments Lactic Acid Level (test code = Lactic Acid Level) 0.8 0.5- 2.0 [facility] CenterCT CHEST DR8577-04-08 17:07:00 [facility] [address] [place] [address] Patient Name: VEDA ADAMS MR #: [id number] : 1940 Age/Sex: 79/F Req #: [id number] Adm Physician: SAPNA CABRERA MD Ordered by: DARI ENAMORADO MD Report #: [id number] Location: [facility] Room/Bed: [address] [address] Procedure: [id number] C T/CT CHEST WO Exam Date: 12/28/19 Exam Time: 1623 REPORT STATUS: Signed EXAM: CT Effie st WITHOUT contrast INDICATION: Pulmonary Fibrosis [id number] COMPARISON: CT chest dated 07/24/2018. TECHNIQUE: Chest was scanned utili [employer] a multidetector helical scanner from the lung apex through the level of t he adrenal glands without administration of IV contrast. Absence of intravenou s contrast decreases sensitivity for detection of lymphadenopathy and vascular pathology. Coronal and sagittal reformations were obtained. Routine protocol was performed. IV CONTRAST: None COMPLICATIONS: None RADIATI ON DOSE: Total DLP: 475.32 mGy*cm Estimated effective dose: (DLP x 0.014 x size factor) mSv CTDIvol has been reviewed. It is below the melgar its set by the Radiation Protocol Committee (RPC). FINDINGS: LINES/ TUBES: None. LUNGS AND AIRWAYS: Diffuse interstitial markings a nd reticular changes in bilateral lungs again seen minimally increased from pr ior exam. Area of fibrosis and bronchiectatic changes predominantly in lower l ungs have also minimally worsened from prior exam. No definite focal nodule or mass is seen. Central airways are patent. PLEURA: The pleural spaces are clear. HEART AND MEDIASTINUM: The thyroid gland is normal. Prominent mediastinal and hilar lymph nodes are unchanged. No axillary lymphadenopathy. The heart is normal in size.. There is no pericardial effusion. UPPER ABDOMEN: Small hiatal hernia seen. BONES: There are degenerative ch anges in the thoracic spine. SOFT TISSUES: Unremarkable. IMPRESSION: Changes related to interstitial lung disease as described have minimally i ncreased from prior exam. Signed by: Holland Rodrigues MD on 12/28/2019 5:1 9 PM Dictated By: HOLLAND RODRIGUES MD 18 Transcribed By: RAULITO on 12/28/191718 C OPY TO: DARI ENAMORADO MD CHEST SINGLE (PORTABLE)2019-12-28 15:36:00 [address] [address] Patient Name: VEDA ADAMS MR #: [id number] : 1940 Age/Sex: 79/F Req #: [id number] Adm Physician: Ordered by: GIORGIO SNYDER [employer] WEAVER Report #: [id number] Location: ER Room/Bed: Procedure: [id number] DX/CHEST SINGLE (PORTABLE) Exam Date: 12/28/19 Exa m Time: 1339 REPORT STATUS: Signed EXAMINATION: CHEST SINGLE (PORTABLE) INDICATION: ERMD ORDE R [id number] Y COMPARISON: CT chest dated 07/24/2018 FINDINGS: AP view TUBES and LINES: None. LUNGS: Lungs are well i nflated. There is mild prominence of the central pulmonary vasculature, consi stent with pulmonary venous congestion. Fibrotic changes in both lungs are aga in noted. PLEURA: No pleural effusion or pneumothorax. HEART AND MED IASTINUM: The cardiomediastinal silhouette is unremarkable. BONES AND SOFT TISSUES: No acute osseous lesion. Soft tissues are unremarkable. U PPER ABDOMEN: No free air under the diaphragm. IMPRESSION: Fibrotic changes in both lungs are seen with mild pulmonary venous congestion Sig tab by: Holland Rodrigues MD on 12/28/2019 3:37 PM Dictated By: HOLLAND MARTINEZ MD 36 Tr anscribed By: RAULITO on 12/28/191536 COPY TO: GIORGIO SNYDER [employer]ER B-Type Natriuretic Trfruxt2446-54-94 14:36:00* Test Item Value Reference Range Interpretation Comments B-Type Natriuretic Peptide (test code = 18459-9) 120.4 0-100 H [facility] CenterProthrombin Nifg1924-00-71 14:20:00* Test Item Value Reference Range Interpretation Comments Prothrombin Time (test code = 5902-2) 12.5 11.9-14.5 [facility] CenterProthromb Time International Ratio 2019-12-28 14:20:00* Test Item Value Reference Range Interpretation Comments Prothromb Time International Ratio (test code = 6301-6) 0.88 Oral Anticoagulant Therapy INR Values:1. Low Intensity Therapy 1.5 - 2.02 . Moderate Intensity Therapy 2.0 - 3.03. High Intensity Therapy(1) 2.5 - 3. 54. High Intensity Therapy(2) 3.0 - 4.05. Panic Value INR > 5.0 [facility] Medical CenterActivated Partial Thromboplast Time 2019-12-28 14:20:00* Test Item Value Reference Range Interpretation Comments Activated Partial Thromboplast Time (test code = 95970-2) 30.3 23.8-35.5 [facility] CenterUrine Waypq4349-45-26 14:16:00* Test Item Value Reference Range Interpretation Comments Urine Color (test code = 5778-6) YELLOW YELLOW [facility] CenterUrine Acvaxwk7036-19-95 14:16:00* Test Item Value Reference Range Interpretation Comments Urine Clarity (test code = 03153-6) CLOUDY CLEAR H [facility] CenterUrine Specific Exbcibu0206-51-73 14:16:00 * Test Item Value Reference Range Interpretation Comments Urine Specific [place] (test code = 5811-5) 1.020 1.010-1.02 5 [facility] CenterUrine jP9242-34-91 14:16:00* Test Item Value Reference Range Interpretation Comments Urine pH (test code = 19295-6) 6 5-7 [facility] CenterUrine Leukocyte Ikwhyxew1753-36-97 14:16:00* Test Item Value Reference Range Interpretation Comments Urine Leukocyte Esterase (test code = 5799-2) SMALL NEGATIVE [facility] CenterUrine Bbccwup9056-73-96 14:16:00* Test Item Value Reference Range Interpretation Comments Urine Nitrite (test code = 41231-4) NEGATIVE NEGATIVE [facility] CenterUrine Vgpltzv2163-43-96 14:16:00* Test Item Value Reference Range Interpretation Comments Urine Protein (test code = 5804-0) 2+ NEGATIVE H [facility] CenterUrine Glucose (UA)2019-12-28 14:16:00* Test Item Value Reference Range Interpretation Comments Urine Glucose (UA) (test code = 2349-9) 1+ NEGATIVE H [facility] CenterUrine Vanepil6976-75-72 14:16:00* Test Item Value Reference Range Interpretation Comments Urine Ketones (test code = 59382-2) TRACE NEGATIVE H [facility] CenterUrine Azeheujmlape8439-32-80 14:16:00* Test Item Value Reference Range Interpretation Comments Urine Urobilinogen (test code = 73261-6) 0.2 0.2-1 [facility] CenterUrine Jpokguwtz1629-59-79 14:16:00* Test Item Value Reference Range Interpretation Comments Urine Bilirubin (test code = 1978-6) NEGATIVE NEGATIVE [facility] CenterUrine Wrras5670-49-54 14:16:00* Test Item Value Reference Range Interpretation Comments Urine Blood (test code = 34728-1) NEGATIVE NEGATIVE [facility] CenterUrine LMU0348-03-19 14:16:00* Test Item Value Reference Range Interpretation Comments Urine WBC (test code = 5821-4) 21-50 0-5 H [facility] CenterUrine SNP3610-13-91 14:16:00* Test Item Value Reference Range Interpretation Comments Urine RBC (test code = 72112-3) 0-5 0-5 [facility] CenterUrine Lohztyix6203-00-66 14:16:00* Test Item Value Reference Range Interpretation Comments Urine Bacteria (test code = 39115-3) MANY NONE H [facility] CenterUrine Epithelial Tejae3713-82-92 14:16:00 * Test Item Value Reference Range Interpretation Comments Urine Epithelial Cells (test code = 47083-4) FEW NONE [facility] CenterUrine Amorphous Cgqcgqmr2249-97-35 14:16:00* Test Item Value Reference Range Interpretation Comments Urine Amorphous Sediment (test code = 8246-1) MODERATE FEW H [facility] CenterInfluenza Virus Types A,B Antigen 2019-12-28 13:54:00* Test Item Value Reference Range Interpretation Comments Influenza Virus Types A,B Antigen (test code = 87980-6) NEGATIVE NEGATIVE [facility] CenterGroup A Streptococcus Cmwmeg1652-01-89 13:44:00* Test Item Value Reference Range Interpretation Comments Group A Streptococcus Screen (test code = 26754-6) NEGATIVE NEG ATIVE [facility] [place] Kytgyndakqit6933-23-61 22:08:00* Test Item Value Reference Range Interpretation Comments Stool Calprotectin (test code = 46336-9) 19 0-120 Concentration Interpretation Follow-Up<16 - 50 ug/g Normal None>50 -120 ug/g Borderline Re-evaluate in 4-6 weeks >120 ug/g Abnormal Repeat as clinically indicatedPerformed at: [facility] [id number] Director: Eldon Pinto MD, Phone: [phone] E. [facility] Medical CenterClostridium Difficile Toxin A & T4203-28-35 14:54:00* Test Item Value Reference Range Interpretation Comments Clostridium Difficile Toxin A & B (test code = 653562797) NEGATIVE NEGATIVE Testing on stool aspirate specimens is outside hydraulic assembler claims since specime n type not validated on this assay.[facility] [place] Lactoferrin (LAB)2019-10-17 21:36:00* Test Item Value Reference Range Interpretation Comments Stool Lactoferrin (LAB) (test code = 34429-6) NEGATIVE NEGATIVE Testing on stool aspirate specimens is outside hydraulic assembler claims since specime n type not validated on this assay.[facility] CenterUS RENAL RETROPERITONEAL QVHF8338-95-86 14:42:00 [facility] [address] [place] [address] Patient Name: VEDA ADAMS MR #: [id number] : 1940 Age/Sex: 79/F Req #: [id number] Adm Physician: Ordered by: MICHAEL ARCOS MD Report #: [id number] Location: US Room/Bed: Procedure: [id number] US/US RENAL RETROPERITONEAL COMP Exam Date: 07/25/19 Exam Time: 1356 REPORT STATUS: Si gned Ultrasound of the Kidneys, 07/25/2019. 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 Discussion: Sonographic evaluation of the kidneys i s performed. Pre and post void images of the bladder were also obtained. Right kidney: 10.1 cm in length, normal in size, with cortical thickness of 1 .6 cm. Normal cortical echogenicity. No mass. No shadowing calculus. No hy dronephrosis. Left kidney: 10.6 cm in length, normal in size, with cortical thickness of 1.4 cm. Normal cortical echogenicity. No mass. No shadowing c alculus. No hydronephrosis. Limited Doppler evaluation demonstrates norm al color Doppler flow within bilateral renal liliane. Fluid: No perinephric fluid. Bladder: Bilateral ureteral jets are visualized. Prevoid bladder volume is 122.1 mL. Post void bladder volume is 46.8 mL. IMPRESSION: No rmal ultrasound of the kidneys and bladder. Signed by: Aston Ortiz MD on 07/25/2019 2:45 PM Dictated By: ASTON ORTIZ MD Electronically Si gned By: ASTON ORTIZ MD on 07/25/19 1445 Transcribed By: RAULITO on 1445 COPY TO: MICHAEL ARCOS MD PELVIC (NON OB) MELGAR OR F/U 2019-07-25 14:42:00 [address] [address] Patient Name: VEDA ADAMS MR #: [id number] : 1940 Age/Sex: 79/F Req #: [id number] Adm Physician: Ordered by: MICHAEL ARCOS MD Report #: [id number] Location: US Room/Bed: Procedure: [id number] US/US PELVIC (NON OB) MELGAR OR F/U Exam Date: 07/25/19 Exam Time: 1356 REPORT STATUS: Si gned Ultrasound of the Kidneys, 07/25/2019. 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 Discussion: Sonographic evaluation of the kidneys i s performed. Pre and post void images of the bladder were also obtained. Right kidney: 10.1 cm in length, normal in size, with cortical thickness of 1 .6 cm. Normal cortical echogenicity. No mass. No shadowing calculus. No hy dronephrosis. Left kidney: 10.6 cm in length, normal in size, with cortical thickness of 1.4 cm. Normal cortical echogenicity. No mass. No shadowing c alculus. No hydronephrosis. Limited Doppler evaluation demonstrates norm al color Doppler flow within bilateral renal liliane. Fluid: No perinephric fluid. Bladder: Bilateral ureteral jets are visualized. Prevoid bladder volume is 122.1 mL. Post void bladder volume is 46.8 mL. IMPRESSION: No rmal ultrasound of the kidneys and bladder. Signed by: Aston Ortiz MD on 07/25/2019 2:45 PM Dictated By: ASTON ORTIZ MD Electronically Si gned By: ASTON ORTIZ MD on 07/25/19 5468 Transcribed By: RAULITO on 2944 COPY TO: MICHAEL ARCOS MD LUNG,KLCPVF0154-47-87 14:43:00 RUN DATE: 08/21/18 [facility] PAGE 1 RUN TIME: 1444 Specimen Inqui ry RUN USER: INTERFACE PATIENT: VEDA ADAMS ACCT #: [id number] LOC: Margarita U #: [id number] AGE/SX: 78/F ROOM: RE08/19/18ORAL DR: Dari Enamorado MD : 38 BED: DIS: STATUS: [facility] [place]: SPEC #: [id number] RECD: 08/19/18 STATUS: ARVIND BURCIAGA #: [id number] MARILIN: 08/19/[address] [facility] [address]: Dari Enamorado MD ENTERED: 08/19/18 SP TYPE: LUNG BX OTHR DR: Sapna Benedict MD ORDERED: GROSS COPIES TO: Dari Enamorado MD [address] [place] [address] Sapna Cabrera MD [address] [place] [address] PROCEDURES: GROSS (08/19/18) TISSUES: RIGHT LOWER LOBE OF LUNG, NOS - BX CLINICAL HI STORY COLLECTION DATE: 08/19/18 PULMONARY FIBROSIS COMMENT Multiple levels of the tissue are examined. Sections show small biopsies of b ronchial mucosa with an intact epithelial lining that is unremarkable in appear ance. A small amount of alveolar parenchyma is present showing mildly increase d macrophages within the alveolar spaces. Significantly increased acute or chr onic inflammation is not noted. Although significant fibrosis is not noted, in terpretation is limited by the small amount of alveolar parenchyma present in t he tissue sample. Features diagnostic of malignancy are not identified. Clini jessica correlation is recommended. Intradepartmental consultation: DMW FINAL DIAGNOSIS Lung, right lower lobe, endobronchial biopsy: BRONCHIA L MUCOSA WITH FOCALLY INCREASED SMOOTH MUSCLE FIBERS SMALL AREA OF ALVEOL AR PARENCHYMA WITH MILDLY INCREASED MACROPHAGES IN ALVEOLAR SPACES MINIMAL CHRONIC INFLAMMATION PRESENT NO ACUTE INFLAMMATORY INFILTRATE PRESENT CONTINUED ON NEXT PAGE RUN DATE: 08/21/18 [facility] PAGE 2 RUN TIME: 1444 Specimen Inquiry RUN USER: INTERFACE SPEC #: [id number] PATIENT: VEDA ADAMS #[id number] (Continued) FINAL DIAGNOSIS ( Continued) NO GRANULOMAS OR AREAS OF NECROSIS PRESENT NEGATIVE FO R MALIGNANCY RRB/sm D 69629 MACROSCOPIC The speci men is received in formalin, labeled with the patient's name and identified as "RLL bx". The specimen consists of virk biopsy material measuring 0.3 cm in a ggregate, submitted for histologic evaluation. GROSS PERFORMED AT [facility] [address], [place] [address] [phone])[phone] MICROSCOPIC MICROSCOPIC PERFORMED AT [facility] All of the stains, including any controls performed, stain brayan ropriately. [facility] [address] [place] [phone] PERFORMING SITE Diagnosis performed at: [facility], [address] [place] [address] Signed SIGNATURE ON FILE Otoniel Lala 08/21/[address] CHEST SK7356-66-06 18:03:00 [address] [place] [address] Patient Name: VEDA ADAMS MR #: [id number] : 1940 Age/Sex: 78/F Req #: [id number] Adm Physician: Ordered by: DARI ENAMORADO MD Report #: [id number] Location: CT Room/Bed: Procedure: [id number] CT/CT CHEST WO Exam Date: Exam Time: 1745 REPORT STATUS: Signed CT CHEST WITHOUT CONTRAST HISTORY: Interstitial lung disease, shortness o f breath, cough, history of pneumonia COMPARISON: None available TECHNIQU E: CT scan of the chest WITHOUT intravenous contrast, using standard protocol. The chest was scanned utilizing a multidetector helical scanner from the ape x to the level of the adrenal glands. Coronal and sagittal reformats are pr ovided. IV CONTRAST: None, which limits evaluation of the vasc ular structures, mediastinum and soft tissues. RADIATION DOSE: T otal DLP: 511.62 mGy*cm Dose modulation, iterative reconstruction, and/or weig ht based adjustment of the mA/kV was utilized to reduce the radiation dose to as low as reasonably achievable. COMPLICATIONS: None F INDINGS: Lines/tubes: None. Lungs and Airways: Diffusely increased p ulmonary interstitial markings, predominantly in a peripheral distribution. Mild bronchiectasis. A few scattered areas of peripheral as a continuation. No evidence of airspace consolidation, honeycombing, suspicious nodules or cys ts. Minimal dependent atelectasis. Pleura: The pleural spaces are val r. Heart and mediastinum: The thyroid gland is normal. The heart and pe ricardium are within normal limits. Abdomen: Limited nonenhanced views of the upper abdomen. A small hiatal hernia. Mild diffuse pancreatic parenc hymal atrophy. A 1.3 cm soft tissue density posterior to the spleen, compatibl e with a small splenule. Lymph nodes: Multiple nonspecific subcentimeter lymph nodes without pathologic enlargement. Vessels: Scattered atheroscler otic vascular calcifications, including the coronary arteries. Bones: No acu te osseous lesion. Accentuation of the thoracic kyphosis. Multilevel anterio r flowing syndesmophytes with relative preservation of the disc spaces, compat ible with DISH (Diffuse idiopathic skeletal hyperostosis). Soft tissues: Other mauricio, unremarkable. IMPRESSION: 1. Fibrotic lung changes with mild b ronchiectasis and areas of mosaic attenuation. This can be better characterize d via a follow-up dedicated CT of the chest without contrast (high resolution/ interstitial lung protocol). 2. Coronary atherosclerosis. 3. Small hiatal hernia. Signed by: Dr. Travis Shi D.O., M.M.M. on 07/24/2018 6:16 PM Dictated By: TRAVIS SHI DO 15 COPY TO: MACHO ENAMORADO MD US PELVIC (NON OB) MELGAR OR [id number] 15:48:00 [place] [address] Patient Name: VEDA ADAMS MR #: [id number] : 1940 Age/Sex: 78/F Req #: [id number] Adm Physician: Ordered by: MICHAEL ARCOS MD Report #: [id number] Location: Room /Bed: Procedure: [id number] US/US PELVIC (NON OB) MELGAR OR F/U Exam Date: Exam Time: REPORT STATUS: Signed PROCEDURE: Urinary Bladder Ultrasound COMPARISON: None. INDICATIONS: CHRONIC KIDNEY DISEASE STAGE II CONCLUSION: Please refe r to "US RETROPERITONEAL" performed at the same date and time for full dictat ed report. Dictated by: JOAQUIM LOZOYA M.D. on 05/15/2018 at 15:48 Electronically approved by: JOAQUIM LOZOYA M.D. on 05/15/2018 at 15:48 Dictated By: JOAQUIM LOZOYA MD 47 Transcribed By: RINA on 05/15/181547 COPY TO: Марина ARCOS MD US RENAL RETROPERITONEAL [id number] 15:35:00 [place] [address] Patient Name: VEDA ADAMS MR #: [id number] : 1940 Age/Sex: 78/F Req #: [id number] Adm Physician: Ordered by: MICHAEL ARCOS MD Report #: [id number] Location: Room /Bed: Procedure: [id number] US/US RENAL RETROPERITONEA L COMP Exam Date: Exam Time: REPORT STATUS: Signed PROCEDURE: US RETROPERITONEAL ( KIDNEY ). COMPARISON: None. IN DICATIONS: CHRONIC KIDNEY DISEASE STAGE II TECHNIQUE: Nunn-scale and color s onographic images of the bilateral kidneys and bladder where obtained in waddell sverse and longitudinal planes. FINDINGS: Bilateral Kidneys: The right kidney measures up to 10.9 cm and the left kidney measures up to 10.4 c m. No evidence of hydronephrosis or solid mass lesions. The renal echogenicit y is unremarkable. No evidence of renal stone. Bladder: No stone is vis ualized. Right ureteral jet is present. Left ureteral jet is not well demonst rated. Residual urine is seen post voiding per technologist report. CO NCLUSION: Unremarkable renal ultrasound. No evidence of hydronephrosis or s tone. Residual urine seen in the bladder post voiding per technologist report. Dictated by: JOAQUIM LOZOYA M.D. on 05/15/2018 at 15:35 Elec tronically approved by: JOAQUIM LOZOYA M.D. on 05/15/2018 at 15:35 D ictated By: JOAQUIM LOZOYA MD 1 535 Transcribed By: RINA on 05/15/18 1535 COPY TO: MICHAEL ARCOS MD CT CHEST [id number] 10:23:00 [place] [address] Patient Name: VEDA ADAMS MR #: [id number] : 1940 Age/Sex: 78/F Req #: [id number] Adm Physician: Ordered by: DARI ENAMORADO MD Report #: [id number] Location: [facility] Room/Bed: Procedure: [id number] CT/CT CHEST WO Exam Date: 05/03/18 Exam Time: 0930 REPORT STATUS: Signed PROCEDURE: CT CHEST WITHOUT CONTRAST CT scan of the chest WITHOUT intravenou s contrast, using standard protocol. TECHNIQUE: The chest was scanned utilizing a multidetector helical scanner from the apex to the level of the adrenal glands. No IV contrast was administered because of referring physici an request. Coronal and sagittal multiplanar reformations were obtained. COMPARISON: None. INDICATIONS: LOWER LOBE INTERSTITIAL INFILTRATES FINDINGS: Lines/tubes: None. Lungs and Airways: Juxtapleural pre dominant groundglass opacities, reticulation, and interlobular septal thicken ing most prominent in the lung bases. No honeycombing. Mild associated bronch iectasis. Pleura: The pleural spaces are clear. Heart and mediastinu m: Visualized portions of the thyroid gland appear normal. Scattered mildly p rominent hilar and mediastinal lymph nodes without overt lymphadenopathy. No axillary lymphadenopathy. No ectasia or aneurysmal dilatation of the thoracic aorta. Atherosclerotic calcification of the aorta, great vessel origins, and [place] coronary arteries. No pericardial effusion. Small hiatal hernia. Soft tissues: No focal soft tissue abnormalities. Abdomen: Visualized po rtions of the liver, spleen, pancreas, adrenals, and kidneys are notable only for an exophytic lesion projecting from the upper pole of the left kidney, a verage internal attenuation 34 Hounsfield units. Bones: No osseous dest ructive lesions. Multilevel degenerative disc changes of the thoracic spine. Bilateral cervical ribs. IMPRESSION: Pulmonary findings compatible with nonspecific interstitial pneumonia (NSIP). This may be idiopathic, or as sociated with collagen vascular disease or drug toxicities (amiodarone, bleom ycin). Atherosclerotic vascular disease. Mildly hyperattenuating par tially visualized exophytic lesion projecting from the left kidney may repres ent a hyperdense/proteinaceous cyst or solid mass. Further evaluation with renal ultrasound is suggested. Dictated by: Heather Corey M.D. on 05/03/20 18 at 10:23 Electronically approved by: Heather Corey M.D. on 05/03/2018 at 10:23 Dictated By: HEATHER COREY MD 1023 Transcribed By: RINA on 05/03/18 1023 C OPY TO: DARI ENAMORADO MD MRI BRAIN [id number] 09:50:00 [place] [address] Patient Name: VEDA ADAMS MR #: [id number] : 1940 Age/Sex: 78/F Req #: [id number] Adm Physician: Ordered by: SAPNA CABRERA MD Report #: [id number] Location: MRI Room /Bed: Procedure: [id number] MRI/MRI BRAIN WO Exam Charbel e: Exam Time: REPORT STATUS: Signed EXAMIN ATION: MRI of the brain without contrast. HISTORY: Memory loss COMPARI SON: Head CT on 10/08/2017 TECHNIQUE: Sagittal T1 ultrathin slice with coronal and axial reformations; axial DWI, T2, FLAIR, T2 gradient echo. IMAGE QUALI TY: Adequate. FINDINGS: DEMENTIA: Structural lesion: No int ra- or extra-axial mass or hematoma. Ventricles: No hydrocephalus. Estrada matter signal intensity: Cortex: Unremarkable. Basal ganglia: Unremarkable. Thalami: Unremarkable. White matter signal intensity: Cerebral: Few scattered white matter T2 and FLAIR hyperintense foci, most likely nonspecific unremarkable ischemic ch anges, within normal limits for patient's age Brainstem: Unrema rkable. Mamillary bodies/fornices and hippocampi: No atrophy or abnormal signal. Microhemorrhages: None. Atrophy: Global: Sy mmetric. Focal: Slightly disproportion bilateral parietal cortica l volume loss. Otherwise no disproportionate lobar, hippocampal, mesencephalic , pontine, or cerebellar atrophy. Vessels: Expected flow voids present in the major arteries and dural sinuses. Sella: Unremarkable. OT HER: Subarachnoid spaces: No abnormal signal intensity. Foramen ma gnum: Unremarkable. Skull: Unremarkable. Paranasal / mastoid s inuses: Persistent opacification of the right maxillary sinus, otherwise clear IMPRESSION: 1. Mild age appropriate chronic microvascular ischemi c changes. 2. Slightly disproportionate bilateral parietal cortical volume loss. Signed by: Dr. Andrea Goel M.D. on 05/03/2018 9:53 AM Dictate d By: ANDREA GOEL MD 2 Transcribed By: RAULITO on 05/03/18952 COPY TO: SAPNA CABRERA MD CHEST 2 [id number] 13:02:00 [place] [address] Patient Name: VEDA ADAMS MR #: [id number] : 1940 Age/Sex: 78/F Req #: [id number] Adm Physician: Ordered by: SAPNA CABRERA MD Report #: [id number] Location: [facility] Room/Bed: Procedure: [id number] DX/CHEST 2 VIEWS Exam Charbel e: 04/12/18 Exam Time: 1212 REPORT STATUS: Sign ed PROCEDURE: Frontal and lateral views of the chest. COMPARISON: 12/12 INDICATIONS: COUGH, PNEUMONIA, SHORTNESS OF BREATH FIND INGS: Lines/tubes: None. Lungs: Diffuse interstitial opacities, particu larly in the lung bases, unchanged. Lung volumes are low. Pleura: Ther e is no pleural effusion or pneumothorax. Heart and mediastinum: The hear t and the mediastinum are normal. Bones: No acute bony abnormality. IMPRESSION: Basilar predominant interstitial opacities with low lung vol umes. The finding suggest fibrosis. This patient may benefit from a high r esolution CT of the chest. No new consolidation. Dictated by: Preethi Armas M.D. on 04/12/2018 at 13:02 Electronically approved by: Preethi Armas M.D. on 04/12/2018 at 13:02 Dictated By: PREETHI WOODWARD MD 1302 Transc ribed By: RINA on 04/12/18 1302 COPY TO: SAPNA CABRERA MD CHEM [id number] 21:30:000[facility] [id number] 21:30:0024 [facility] HermannCHEM [id number] 21:30:003.9[facility]annCHEM PANEL 2016-10-02 21:30:0010.4[facility]annCHE[facility] [id number] 21:30:0069[facility]annCHEM FYZYJ6963-10-37 21:30:004.4[facility]annCHEM XRFHN4363-14-31 21:30:68447Cfumymiy HermannCHEM FIHTH6386-71-23 21:30:0026[facility]annCHEM MOTHN1263-47-04 21:30:008.5[facility]annCHEM FLWRB3140-17-48 21:30:007.3 [facility] DBWWN7484-86-60 21:30:0020[facility]annCHEM PANEL 2016-10-02 21:30:000.82[facility]annCHEM UOWPS5959-06-97 21:30:12683Uyhreilf HermannCHEM KRCMS7419-65-54 21:30:003.4[facility]annCHEM UTCDM3730-88-61 21:30:0017[facility]annCHE[facility] PPXGI6575-99-29 21:30:0023[facility]annCHEM OFFQA5713-60-01 21:30:0066[facility]annCHE[facility] VIZCM5265-54-11 21:30:000.4 [facility]annCHEM UULMI6825-73-79 21:30:64880Wpsewfkn HermannHEMATOLOGY 2016-10-02 21:30:008.3[facility] OfvmfrmYWUFSBEJWM4786-99-65 21:30:003.83[facility] PxpsbmgBJNEINWTUS2573-28-37 21:30:0011.4[facility] SqsqcauYVREUCTUDZ1223-88-03 21:30:0034.2[facility] PhurrxqHIFTAEBZOM5367-52-68 21:30:0089.3[facility] UNEPIFXSHR2513-30-36 21:30:007.5[facility] GuntjloTJKFTUMHSL8420-45-59 21:30:00* Test Item Value Reference Range Interpretation Comments MCH (test code = MCH) 29.8 pg 27.0-31.0 [facility] LgrqbzcRCGBELLJDX0506-68-47 21:30:84260Trnoupsp HermannHEMATOLOGY 2016-10-02 21:30:0015.4[facility] JjgcuzrHHRMANIAOW4874-47-83 21:30:0033.4[facility] SudssitKWZIPPTMHV7881-41-17 21:30:0063.3[facility] NaqopooJKJYXFVODF3147-14-24 21:30:000.6[facility] DdfxaxqCNVVQIXMFO5204-51-02 21:30:002.0[facility] [place] ALDYJZFAWT7454-78-04 21:30:007.7[facility] WtitnarZMYCRXHJYM4047-88-23 21:30:00 26.4[facility] YazdhruZLUIRPZKSR3687-02-39 21:30:002.0[facility] HermannHEMATOLOGY 2016-10-02 21:30:004.8[facility] PosxcebLFFYAQQRZZ1354-99-40 21:30:000.2[facility] MogmtbvQCICODRGPN0523-11-35 21:30:000.6[facility] HermannMODIFIED BA. SWALLOW [place] [address] Patient Name: VEDA ADAMS MR #: [id number] DO B: 1940 Age/Sex: 77/F Req #: [id number] Adm Physici an: Ordered by: DARI ENAMORADO MD Report #: [id number] Location: DX Room/Be d: Procedure: [id number] DX/MODIFIED BA. SWALLOW Exam Date: 02/19/18 Exam Time: 1300 REPORT STATUS: Signed PROCEDURE: X-RAY MODIFIED BARIUM SWALLOW COMPARISON: None. INDICATIONS: Dysphagia, possible aspiration and coughing DISCUSSIO N: Fluoroscopic examination was performed in conjunction with speech pathol ogy, during swallowing of a variety of thin and thick liquid consistencies. T he Radiologist was in attendance. Multiple episodes of coughing were encou ntered. There is some pooling in the vallecula. No penetration or aspiration was noted. Please see the full report provided by the Speech Pathologist. Fluoroscopy time: 1.5 minutes Total dose: 7.30 mGy CONCLUSION: No p enetration or aspiration. Please see the report from speech pathology for co mplete details. Cora Stone D.O. Dictated by: Cora sue D.O. on 02/19/2018 at 13:49 Electronically approved by: Cora Stone D.O. on 02/19/2018 at 13:49 Dictated By: CORA STONE DO Violeta ctronically Signed By: CORA STONE DO on 02/19/18 1349 Transcribed By: RINA on 02/19/18 1349 COPY TO: DARI ENAMORADO MD CHEST 2 VIEWS [place] [address] Patient Name: VEDA ADAMS MR #: [id number] : 1940 Age/Sex: 77/F Req #: [id number] Adm Physician: Ordered by: SAPNA CABRERA MD Report #: [id number] Location: [facility] Room /Bed: Procedure: [id number] DX/CHEST 2 VIEWS Exam Charbel e: 12/12/17 Exam Time: 1220 REPORT STATUS: Sign ed PROCEDURE: Frontal and lateral views of the chest. COMPARISON: 10/08/17 INDICATIONS: PNEUMONIA, COUGH FINDINGS: Lines/tubes: None. Lungs: The lungs are well inflated. Increased interstitial markings . Pleura: There is no pleural effusion or pneumothorax. Heart and media stinum: The heart and the mediastinum are normal. Aorta is calcified and mil dly tortuous. Bones: No acute bony abnormality. Degenerative changes of s pine. IMPRESSION: Increased interstitial lung markings, probably ch ronic/fibrotic changes. Underlying infiltrate especially in the lower lung fi elds cannot be entirely excluded. Dictated by: Quynh Thompson M.D. on 12/12/2017 at 12:57 Electronically approved by: Quynh Thompson M.D. on at 12:57 Dictated By: QUYNH THOMPSON MD Electronicall y Signed By: QUYNH THOMPSON MD on 12/12/17 1257 Transcribed By: RINA on 8 1257 COPY TO: SAPNA CABRERA MD CHEST SINGLE (PORTABLE) [place] [address] Patient Name: VEDA ADAMS MR #: [id number] : 1940 Age/Sex: 77/F Req #: [id number] Adm Physician: Ordered by: MONTSE MATTHEWS MD Report #: [id number] Location: ER Room/ Bed: Procedure: [id number] DX/CHEST SINGLE (PORTABLE) Exam Date: 10/08/17 Exam Time: 0545 REPORT STA TUS: Signed EXAMINATION: CHEST SINGLE (PORTABLE) INDICATION: Hypertension, chest pain, throat discomfort COMPARISON: None FINDINGS: TUBES and LINES: None. LUNGS: Lungs are well inflated. The re are bibasilar atelectasis. There is mild prominence of the central pulmon juan vasculature, consistent with pulmonary venous congestion. Interlobular sep ti thickening noted in the perihilar and bibasilar regions. PLEURA: No p leural effusion or pneumothorax. HEART AND MEDIASTINUM: Cardiac size is mi ldly enlarged. There are atherosclerotic calcifications within the aorta. BONES AND SOFT TISSUES: No acute osseous lesion. Soft tissues are unremarka ble. UPPER ABDOMEN: No free air under the diaphragm. IMPRESSION: Mild cardiogenic pulmonary edema is present. Signed by: Dr. German weems M.D. on 10/08/2017 6:22 AM Dictated By: GERMAN BOWLING MD Electr onically Signed By: GERMAN BOWLING MD on 10/08/17621 Transcribed By: CAROLINE STEPHEN on 10/08/17621 COPY TO: MONTSE MATTHEWS MD CT BRAIN WO [place] [address] Patient Name: VEDA ADAMS MR #: [id number] DO B: 1940 Age/Sex: 77/F Req #: [id number] Adm Physici an: Ordered by: MONTSE MATTHEWS MD Report #: [id number] Location: ER Room/ Bed: Procedure: [id number] CT/CT BRAIN WO Exam Date: 10/08/17 Exam Time: 0605 REPORT STATUS: Signed Examination: CT BRAIN WITHOUT CONTRAST History:Difficulty breathing. Hea daches. Comparison studies:None Technique: Axial images were obtained f rom the skull base to the vertex. Coronal and sagittal images reconstructed fr om the axial data. Intravenous contrast: None Findings: Scalp: No ab normalities. Bones: No fractures, blastic or lytic lesions. Brain sulci: Appropriate for age. Ventricles: Normal in size and configuration. No hydrocep halus. Extra-axial space: No abnormalities. Parenchyma: There are subtle patchy areas of hypoattenuation in the periventricular and subcortical white matter, nonspecific. No masses, hemorrhage, or acute or chronic cortic al based vascular insults. Sellar/suprasellar region: No abnormalities. C raniocervical junction: Patent foramen magnum. No Chiari one malformation. Incidental findings: Atherosclerotic calcification of the cavernous and supra clinoid internal carotid and V4 segments of the bilateral vertebral arteries. Impression: 1. No acute intracranial abnormalities. 2. Mild c hronic microvascular ischemic change. Signed by: Dr. Ebony Gonzales M.D. on 10/08/2017 7:41 AM Dictated By: EBONY damon Signed By: EBONY RAMSAY MD on 10/08/17740 Transcribed By: Ariana MURRY on 10/08/17740 COPY TO: MONTSE MATTHEWS MD US RENAL RETROPERITONEAL COMP [place] [address] Patient Name: VEDA ADAMS MR #: [id number] : 1940 Age/Sex: 77/F Req #: [id number] Adm Physician: Ordered by: MICHAEL ARCOS MD Report #: [id number] Location: US Room/Bed: Procedure: [id number] US/US RENAL RETROPERITONEA L COMP Exam Date: 09/28/17 Exam Time: 928 REP ORT STATUS: Signed PROCEDURE: US RETROPERITONEAL ( KIDNEY ). COMPARISON: None. INDICATIONS: CKD STAGE 2 TECHNIQUE: Nunn-scale and color sonograph ic images of the bilateral kidneys and bladder where obtained in transverse a nd longitudinal planes. FINDINGS: RIGHT KIDNEY: 10.9 cm in bushra gth, cortical thickness 1.7 cm. Cysts: None Solid masses: None Stones: Non e Hydronephrosis: None Echogenicity: Normal renal cortical echogenicity. LEFT KIDNEY: 10.4 cm in length, cortical thickness 1.8 cm. Cysts: None So lid masses: None Stones: None Hydronephrosis: Stable mild prominence of the left renal pelvis without overt hydronephrosis. Echogenicity: Normal renal cortical echogenicity. Bladder: Unremarkable. Right and left ureteral jets are identified. CONCLUSION: Unremarkable sonographic appearance of the kidneys. Dictated by: Heather Corey M.D. on 09/28/2017 at 10:09 Electronically approved by: Heather Corey M.D. on 09/28/2017 at 10:09 Dictated By: HEATHER COREY MD 1009 Transcribed By: RINA on 09/28/17 1009 COPY TO: MICHAEL SAPP MD US PELVIC (NON OB) MELGAR OR F/U [place] [address] Patient Name: VEDA ADAMS MR #: [id number] : 1940 Age/Sex: 77/F Req #: [id number] Adm Physician: Ordered by: MICHAEL ARCOS MD Report #: [id number] Location: Room/Bed: Procedure: [id number] US/US PELVIC (NON OB) MELGAR OR F/U Exam Date: 09/28/17 Exam Time: 928 REP ORT STATUS: Signed PROCEDURE: URINARY BLADDER ULTRASOUND COMPARISON: No ne. INDICATIONS: CKD STAGE 2 CONCLUSION: Please refer to "US RETR OPERITONEAL" performed at the same date and time for full dictated report. Dictated by: Heather Corey M.D. on 09/28/2017 at 10:09 Electronica lly approved by: Heather Corey M.D. on 09/28/2017 at 10:09 Dictate d By: HEATHER COREY MD 1 009 Transcribed By: RINA on 09/28/17 1009 COPY TO: MICHAEL ARCOS MD
--- OUTSIDE RECORDS SUMMARY | 2020-10-03 15:12 | XMS REPORT | Continuity of Care Document ---
Author Author Doctor kineticVEDA Organization [employer] [facility] Address Unknown Phone Unavailable Care Team Providers Care Supervisor Crack Off Name Role Phone [facility] [employer] [facility] Unavailable Un available Problems Problem Status Onset Date Classification Date Reported Comments Source DX: M25.50=PAIN IN UNSPECIFIED JOINT /M3 Active 03/19/2019 [facility] UNK Active 1 11/11/2015 [facility] Diabetes mellitus (disorder) A ctive Problem [facility] Dyspnea on exertion (finding) Active Problem [facility] Hypertensive disorder, systemic arterial (disorder) Active Problem 04/17/2019 [facility] Pulmonary fibrosis Active Problem 02/13/2020 [facility] 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 [facility] Keratoconjunctivitis sicca of both eyes not due to Sjogren''s syndrome Active Prob flo 02/13/2020 [facility] Vitamin D deficiency Active Problem 02/13/2020 [facility] Polyarthralgia Active Diagnosis 02/13/2020 [facility] Memory loss Active Problem 02/13/2020 [facility] Cough Active Diagnosis 02/13/2020 [facility] 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 Active Diag nosis 02/13/2020 Mukund Pappas 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 [facility] PAIN IN UNSPECIFIED JOINT Acti ve [facility] Medications Medication Details Route Status Patient Instructions Ordering Provider Order Date Source Vitamin D (Ergocalciferol) 1 c apsule Orally Active 1.25 MG (38355 UT) Orally Once a week [facility] 10/10/2019 Mukund Pappas Vitamin D (Ergocalciferol) 1 c apsule Orally Active 1.25 MG (26114 UT) Orally once a week Pappas 10/09/2019 [facility] Azathioprine 1 tablet Orally Active 50 mg Orally TID P[facility]as 09/09/2019 [facility] Tesprettyon Perles 1 capsule as n eeded Orally Active 100 MG Orally Three times a day P[facility]as 06/10/2019 [facility] PredniSONE 1 tablets Orally Active 5 MG Orally q am with f ood Pappas 12/30/2018 [facility] PredniSONE 1 tablets Orally Active 5 MG Orally q am with f ood Kahn 12/30/2018 [facility] Co-Q10 200 mg oral tablet PO, Daily, 0 Refill(s) Active 10/02/2016 [facility] Fish Oil 1200 mg oral capsule 1,200 mg = 1 cap, PO, Daily, 0 Refill(s) Active 10/02/2016 [facility] aspirin 81 mg tablet, enteric coated 81 mg = 1 tab, PO, Daily, # 90 tab, 3 Refill(s) Active 10/02/2016 [facility] Vitamin D2 50,000 intl units oral capsule 50,000 IntlUnit = 1 cap, PO, Q7D, # 24 cap, 0 Refill(s) Active 10/02/2016 [facility] atorvastatin 10 mg oral tablet 10 mg = 1 tab, PO, Bedtime, # 30 tab, 0 Refill(s) Active 10/02/2016 [facility] amLODIPine 2.5 mg oral tablet 2.5 mg = 1 tab, PO, Daily, # 30 tab, 0 Refill(s) Active 10/02/2016 [facility] Atenolol 100 MG Oral Tablet 10 0 mg = 1 tab, PO, Daily, # 30 tab, 0 Refill(s) Active 10/02/2016 [facility] lisinopril 40 mg oral tablet 4 0 mg = 1 tab, PO, Daily, # 30 tab, 0 Refill(s) Active 10/02/2016 [facility] allopurinol 100 mg oral tablet 100 mg = 1 tab, PO, Daily, # 90 tab, 1 Refill(s) Active 10/02/2016 [facility] sitagliptin 100 MG Oral Tablet [Januvia] 100 mg = 1 tab, PO, Daily, # 30 tab, 0 Refill(s) Active 10/02/2016 [facility] Glipizide 5 MG / Metformin hydrochloride 500 MG Oral Tablet 2 tab, PO, BID-Meals, # 60 tab, 0 Refill(s) Active 10/02/2016 [facility] Refresh Optive 1 drop into aff ected eye as needed Ophthalmic Active 0.5-0.9 % Ophthalmic Three times a day [facility] Magnesium 1 capsule with a meal Orally Active 200 MG Orally Once a day [place] [facility] P[facility] Cyanocobalamin 1 ml Injection Active 1000 MCG/ML Injection e very two weeks [place] [facility] P[facility] Benzonatate 1 capsule as needed Orally Active 100 MG Orally Three times a day [place] [facility] P[facility] Januvia 1 tablet Orally Active 100 MG Orally Once a da y [place] Florentin Pappas Metformin HCl 2 tablet with a meal Orally Active 500 MG Orally Once a day [place] Muk[facility] Papp[facility] Esbriet 3 capsules with food Orally Active 801 MG Orally Three times a day [place] [facility] P[facility] Symbicort 2 puffs Inhalation Active 160-4.5 MCG/ACT Inhalat ion Twice a day [place] [facility] Vitamin D3 2 tablets Orally Active 400 UNIT Orally Once a day [place] [facility] P[facility] Iron 1 tablet Orally Active 325 (65 Fe) MG Orally O nce a day [place] [facility] Omeprazole 1 capsule Orally Active 40 MG Orally Once a day [place] [facility] P[facility] Metoprolol Tartrate 1 tablet w ith food Orally Active 100 MG Orally once a day [place] [facility] P[facility] Amlodipine Besylate 1 tablet Orally Active 5 MG Orally Once a day [place] [facility] P[facility] Losartan 1 tablet Orally Active 50mg Orally Once a day [facility] cherrie Pappas Vitamin D (Ergocalciferol) 1 c apsule Orally Active 27562 UNIT Orally [place] [facility] Ranitidine HCl 1 capsule Orally Active 300 MG Orally Once a da y [place] [facility] Ferrous Sulfate as directed Orally Active 325 MG Orally [place] [facility] GlipiZIDE-Metformin HCl 2 tabl et with a meal Orally Active 5-500 MG Orally Once a day [place] [facility] P[facility] Mag Oxide-Vit D3-Turmeric as d irected Orally Active [id number] MG-UNIT-MG Orally [place] Muk[facility] Pappas Flonase 1 spray in each nostril Nasally Active 50 MCG/ACT Nasally Once a day [place] [facility] Azathioprine TAKE 1 TABLET BY MOUTH TWICE DAILY DIRECTED NA Active 50 MG [place] [facility] P[facility] Azithromycin 1 tablet Orally Active 500 MG Orally [place] Florentin Pappas Allergies, Adverse Reactions, Alerts Substance Category Reaction Severity Reaction type Status Date Reported Comments Source N.K.D.A. Adverse Reaction Info Not Available Adverse Reaction 06/10/2019 [facility] No Known Medication Allergies Assertion Drug aller gy [facility] Immunizations No Data Provided for This Section Results Order Name Results Value Reference Range Date Interpretation Comments Source CHEM PANEL A/G Ratio 0.9 0.7 - 1.6 10/02/2016 [facility] CHEM PANEL B/C Ratio 24 6 - 25 10/02/2016 [facility] CHEM PANEL Globulin 3.9 2.7 - 4.2 10/02/2016 [facility] CHEM PANEL AGAP 10.4 10.0 - 20.0 10/02/2016 [facility] CHEM PANEL eGFR 69 10/02/2016 Result Comment: The eGFR is calculated using the CKD-EPI formula. In most young, healthy individuals the eGFR will be >90 mL/min/1.73m2. The eGFR declines with age. An eGFR of 60-89 may be normal in some populations, particularly the elderly, for whom the CKD-EPI formula has not been extensively validated. Use of the eGFR is not recommended in the following populations:

Individuals with unstable creatinine concentrations, including patients and those with serious co-morbid conditions.

Patients with extremes in muscle mass or diet.

The data above are obtained from the National Kidney Disease Education Program (NKDEP) which additionally recommends that when the eGFR is used in patients with extremes of body mass index for purposes of drug dosing, the eGFR should be multiplied by the estimated BMI. [facility] CHEM PANEL Potassium Lvl 4.4 3.5 - 5.1 10/02/2016 [facility] CHEM PANEL Chloride Lvl 105 95 - 109 10/02/2016 [facility] CHEM PANEL CO2 26 24 - 32 10/02/2016 [facility] CHEM PANEL Calcium Lvl 8.5 8.5 - 10.5 10/02/2016 [facility] CHEM PANEL Total Protein 7.3 6.4 - 8.4 10/02/2016 [facility] CHEM PANEL BUN 20 7 - 22 10/02/2016 [facility] CHEM PANEL Creatinine Lvl 0.82 0.50 - 1.40 10/02/2016 [facility] CHEM PANEL Sodium Lvl 137 135 - 145 10/02/2016 [facility] CHEM PANEL Albumin Lvl 3.4 3.5 - 5.0 10/02/2016 [facility] CHEM PANEL ALT 17 0 - 65 10/02/2016 [facility] CHEM PANEL AST 23 0 - 37 10/02/2016 [facility] CHEM PANEL Alk Phos 66 39 - 136 10/02/2016 [facility] CHEM PANEL Bili Total 0.4 0.2 - 1.3 10/02/2016 [facility] CHEM PANEL Glucose Lvl 207 70 - 99 10/02/2016 [facility] HEMATOLOGY MPV 8.3 7.4 - 10.4 10/02/2016 [facility] HEMATOLOGY RBC 3.83 4.20 - 5.40 10/02/2016 [facility] HEMATOLOGY Hgb 11.4 12.0 - 16.0 10/02/2016 [facility] HEMATOLOGY Hct 34.2 36.0 - 48.0 10/02/2016 [facility] HEMATOLOGY MCV 89.3 80.0 - 98.0 10/02/2016 [facility] HEMATOLOGY WBC 7.5 3.7 - 10.4 10/02/2016 [facility] HEMATOLOGY MCH 29.8 27.0 - 31.0 10/02/2016 [facility] HEMATOLOGY Platelet 240 133 - 450 10/02/2016 [facility] HEMATOLOGY RDW 15.4 11.5 - 14.5 10/02/2016 [facility] MCHC 33.4 32.0 - 36.0 10/02/2016 [facility] HEMATOLOGY Segs 63.3 45.0 - 75.0 10/02/2016 [facility] HEMATOLOGY Basophils 0.6 0.0 - 1.0 10/02/2016 [facility] HEMATOLOGY Eosinophils 2.0 0.0 - 4.0 10/02/2016 [facility] HEMATOLOGY Monocytes 7.7 2.0 - 12.0 10/02/2016 [facility] Lymphocytes 26.4 20.0 - 40.0 10/02/2016 [facility] Lymphocytes # 2.0 1.0 - 5.5 10/02/2016 [facility] HEMATOLOGY Segs-Bands # 4.8 1.5 - 8.1 10/02/2016 [facility] HEMATOLOGY Eosinophils # 0.2 0.0 - 0.5 10/02/2016 [facility] HEMATOLOGY Monocytes # 0.6 0.0 - 0.8 10/02/2016 [facility] Pathology Reports No Data Provided for This Section Diagnostic Reports No Data Provided for This Section Consultation Notes No Data Provided for This Section Discharge Summaries No Data Provided for This Section History and Physicals No Data Provided for This Section Vital Signs Vital Sign Value Date Comments Source Weight 147.9 10/09/2019 [facility] Height 61 1 12/10/2018 [facility] Temperature Oral (F) 98.0 F 10/09/2019 [facility] Heart Rate 76 10/09/2019 [facility] Diastolic (mm Hg) 76 10/09/2019 [facility] Systolic (mm Hg) 162 10/09/2019 [facility] Weight 150.6 06/10/2019 [facility] Height 61 0 06/10/2019 [facility] Temperature Oral (F) 97.9 F 06/10/2019 [facility] Heart Rate 104 06/10/2019 [facility] Diastolic (mm Hg) 90 06/10/2019 [facility] Systolic (mm Hg) 142 06/10/2019 [facility] Height 160.02 cm 04/15/2019 [facility] Weight 70.455 04/15/2019 [facility] BMI Calculated 27.51 04/15/2019 [facility] Weight 158.7 03/11/2019 [facility] Height 61 0 03/11/2019 [facility] Temperature Oral (F) 97.6 F 03/11/2019 [facility] Heart Rate 76 03/11/2019 [facility] Diastolic (mm Hg) 72 03/11/2019 [facility] Systolic (mm Hg) 140 03/11/2019 [facility] Respitory Rate 16 10/02/2016 [facility] Systolic (mm Hg) 147 10/02/2016 [facility] Diastolic (mm Hg) 71 10/02/2016 [facility] Heart Rate 72 10/02/2016 [facility] Temperature Oral (F) 97.6 F 10/02/2016 [facility] Weight 79.091 10/02/2016 [facility] BMI Calculated 31.89 10/02/2016 [facility] Height 157.48 cm 10/02/2016 [facility] Encounters Location Location Details Encounter Type Encounter Number Reason For Visit Attending Provider ADM Date DC Date Status Source [facility] Bedded Outpatient [id number] Sandeep Correaa 10/03/2016 10/03/2016 [facility] Outpatient [id number] Ania Kahn 04/15/2019 04/16/2019 [facility] Procedures Procedure Code Date Perfomer Comments Source CEIOL - Cataract extraction and insertio n of intraocular lens 843344114 [facility] Cholecystectomy [id number] [facility] st Repair of rotator cuff of shoulder [id number] [facility] Assessment and Plan No Data Provided for This Section Plan of Care No Data Provided for This Section Social History Social History Date Source Social History TypeResponse Smoking Status Former smoker; Exposure to Tobacco Smoke None; Cigarette Smoking Last 365 Days No; Reg Smoking Cessation Counseling No entered on: 10/02/16 10/02/2016 [facility] Family History No Data Provided for This Section Advance Directives No Data Provided for This Section Functional Status No Data Provided for This Section
[2020-10-03] MEDS ORDERED: METHYLPREDNISOLONE SOD SUCC 125 MG/2ML VIAL IV STA (15:20)
[2020-10-03 15:56] LABS: BASOPHILS % 0.3 % (0.0-1.0); EOSINOPHILS # (AUTO) 0.2 (0.0-0.4); EOSINOPHILS % 1.9 % (0.0-6.0); HEMOGLOBIN 13.1 g/dL (12.0-16.0); LYMPHOCYTES # (AUTO) 1.4 (1.0-3.2); LYMPHOCYTES % 14.2 % (18.0-39.1); MEAN CORPUSCULAR HGB CONC 34.5 g/dL (31-35); MEAN CORPUSCULAR VOLUME 89.8 fL (81-99); MONOCYTES # (AUTO) 0.8 (0.2-0.8); MONOCYTES % 7.5 % (4.4-11.3); NEUTROPHILS # (AUTO) 7.7 (2.1-6.9); NEUTROPHILS % 75.5 % (38.7-80.0); PLATELET COUNT 264 x10e3/uL (140-360); RED BLOOD COUNT 4.23 x10e6/uL (3.6-5.1); RED CELL DISTRIBUTION WIDTH 13.3 % (11.7-14.4)
[2020-10-03 16:04] LABS: INR 0.92; PROTHROMBIN TIME 12.8 seconds (11.9-14.5)
[2020-10-03 16:05] LABS: PARTIAL THROMBOPLASTIN TIME 25.4 seconds (23.8-35.5)
[2020-10-03 16:14] LABS: ALANINE AMINOTRANSFERASE 11 IU/L (0-55); ALBUMIN 3.5 g/dL (3.5-5.0); ALBUMIN/GLOBULIN RATIO 0.9 (0.8-2.0); ALKALINE PHOSPHATASE 97 IU/L (40-150); ANION GAP 16.7 mmol/L (8-16); BLOOD UREA NITROGEN 13 mg/dL (7-26); BUN/CREATININE RATIO 17 (6-25); CALCIUM 9.1 mg/dL (8.4-10.2); CARBON DIOXIDE 27 mmol/L (22-29); CHLORIDE 91 mmol/L (98-107); CREATINE KINASE 42 IU/L (29-168); CREATININE, SERUM 0.78 mg/dL (0.57-1.11); EST GLOMERULAR FILTRATION RATE > 60 ML/MIN (60-); GLUCOSE 206 mg/dL (74-118); POTASSIUM 4.7 mmol/L (3.5-5.1); SODIUM 130 mmol/L (136-145)
[2020-10-03 16:35] LABS: CLARITY,URINE CLEAR (CLEAR); COLOR,URINE YELLOW (YELLOW)
[2020-10-03 16:37] LABS: BILIRUBIN,URINE NEGATIVE (NEGATIVE); KETONES,URINE NEGATIVE (NEGATIVE); LEUKOCYTE ESTERASE ,URINE SMALL (NEGATIVE); NITRITE,URINE NEGATIVE (NEGATIVE); PROTEIN,URINE DIPSTICK NEGATIVE (NEGATIVE); URINE UROBILINOGEN 0.2 mg/dL (0.2 - 1)
[2020-10-03 16:38] LABS: BACTERIA,URINE RARE /HPF; EPITHELIAL CELLS,URINE FEW /LPF; RBC,URINE 0-5 /HPF (0-5); WBC,URINE (MAN) 0-5 /HPF (0-5)
--- NOTE | 2020-10-03 17:02 | Diagnostic Imaging Report ---
EXAMINATION: CHEST SINGLE (PORTABLE) INDICATION: ^Y ^SOB ^[id number] ^[id number] COMPARISON: CT of the chest on 12/28/2019. FINDINGS: TUBES and LINES: None. LUNGS: Normal lung volumes. There is diffuse interstitial prominence throughout both lungs. There is also hazy opacification the bilateral lung bases. PLEURA: No pleural effusion or pneumothorax. HEART AND MEDIASTINUM: The cardiomediastinal silhouette is unremarkable. BONES AND SOFT TISSUES: No acute osseous lesion. Soft tissues are unremarkable. UPPER ABDOMEN: No free air under the diaphragm. IMPRESSION: 1. Diffuse interstitial prominence throughout both lungs which most likely represents chronic lung changes better demonstrated on comparison CT of the chest. Superimposed reactive airway inflammation or bronchitis is possible. 2. Hazy opacification the bilateral lung bases may represent atelectasis and/or superimposed pneumonia in the proper clinical context. Signed by: Delaney Armando MD on 10/03/2020 4:58 PM
--- NOTE | 2020-10-03 17:05 | Emergency Department Note ---
History of Present Illnes History of Present Illness Chief Complaint: COVID PUI History of Present Illness This is a 80 year old female X 2 WEEKS INCREASINGLY GETTING SHORT OF BREATH DAUGHTER GAVE 3 ALBUTEROL BREATHING [place] 4 HRS AGO AND STATES SHE IS STILL SHORT OF BREATH. 09/[address] TRINIDAD (PULM) FOR COUGHING, TROUBLE BREATHING AND WAS GIVEN ALBUTEROL, SYMBICORT, STEROIDS, PREDNISONE, COUGH MEDICINE. Historian: Patient Arrival Mode: Car Additional Treatment TIRE ASSEMBLER: NONE Die Filer Required: No Onset (how long ago): week(s) (2) Radiation: Reports non-radiation Severity: mild Onset quality: gradual Duration (how long): week(s) (2) Timing of current episode: intermittent Progression: waxing and waning Chronicity: recurrent Context: Denies recent illness Relieving factors: none Exacerbating factors: none Associated symptoms: Reports cough, Reports shortness of breath Past Medical/Family History Physician Review I have reviewed the patient's past medical and family history. Any updates have been documented here. Past Medical History Recent Fever: No Clinical Suspicion of Infectio: No New/Unexplained Change in Ment: No Past Medical History: Hypertension, Diabetes, UTI's, GERD, Chronic Kidney Disease Other Medical History: PER PATIENT, "RENAL PROBLEMS" scleroderma, pulmonary fibrosis ALZHEIMER Past Surgical History: Cholecysctectomy Other Surgery: Sx gallbadder, and right shoulder Social History Smoking Cessation: Never Smoker Counseling Performed: No Alcohol Use: None Any Illegal Drug Use: No TB Exposure/Symptoms: No Physically hurt or threatened: No Family History Family history of heart diseas: No Other Any Pre-Existing Lines (PICC,: No Review of Systems Review of Systems Constitutional: Reports no symptoms EENTM: Reports no symptoms Cardiovascular: Reports no symptoms Respiratory: Reports as per HPI Gastrointestinal: Reports no symptoms Genitourinary: Reports no symptoms Musculoskeletal: Reports no symptoms Integumentary: Reports no symptoms Neurological: Reports no symptoms Psychological: Reports no symptoms Endocrine: Reports no symptoms Hematological/Lymphatic: Reports no symptoms Physical Exam Related Data Allergies: Coded Allergies: levofloxacin (Verified Allergy, Unknown, HIVES, 10/16/19) Triage Vital Signs Vital Signs Date Time Temp Pulse Resp B/P (MAP) Pulse Ox O2 Delivery O2 Flow Rate FiO2 10/03/20 15:03 98.6 70 18 180/73 100 Room Air Vital signs reviewed: Yes Physical Exam CONSTITUTIONAL Constitutional: Present well-developed, Present well-nourished, Present other (ANXIOUS - SAYS THAT HER 90 Y/O SISTER IS IN [place], [place] AND SHE IS DYING, SAYS SHE WANTS TO BE THERE) HENT HENT: Present normocephalic, Present atraumatic, Present oropharynx clear/moist, Present nose normal HENT L/R: Present left ext ear normal, Present right ext ear normal EYES Eyes: Reports PERRL, Reports conjunctivae normal NECK Neck: Present ROM normal PULMONARY Pulmonary: Present effort normal, Present other (DIFFUSE DRY CRACKLES C/W PULM FIBROSIS); Absent rhonchi CARDIOVASCULAR Cardiovascular: Present regular rhythm, Present heart sounds normal, Present capillary refill normal, Present normal rate GASTROINTESTINAL Abdominal: Present soft, Present nontender, Present bowel sounds normal GENITOURINARY Genitourinary: Present exam deferred SKIN Skin: Present warm, Present dry MUSCULOSKELETAL Musculoskeletal: Present ROM normal NEUROLOGICAL Neurological: Present alert, Present oriented x 3, Present no gross motor or sensory deficits PSYCHOLOGICAL Psychological: Present mood/affect normal, Present judgement normal Results Laboratory Result Diagram: 10/03/20 1545 10/03/20 1545 Laboratory Laboratory Tests Test 10/03/20 16:23 10/03/20 15:45 Urine Color Yellow (YELLOW) Urine Clarity Clear (CLEAR) Urine pH 6 (5 - 7) Urine Specific [place] 1.015 (1.010-1.025) Urine Protein Negative (NEGATIVE) Urine Glucose (UA) Negative (NEGATIVE) Urine Ketones Negative (NEGATIVE) Urine Blood Negative (NEGATIVE) Urine Nitrite Negative (NEGATIVE) Urine Bilirubin Negative (NEGATIVE) Urine Urobilinogen 0.2 mg/dL (0.2 - 1) Urine Leukocyte Esterase Small (NEGATIVE) Urine RBC 0-5 /HPF (0-5) Urine WBC 0-5 /HPF (0-5) Urine Epithelial Cells Few /LPF (NONE) Urine Bacteria Rare /HPF (NONE) White Blood Count 10.16 x10e3/uL (4.8-10.8) Red Blood Count 4.23 x10e6/uL (3.6-5.1) Hemoglobin 13.1 g/dL (12.0-16.0) Hematocrit 38.0 % (34.2-44.1) Mean Corpuscular Volume 89.8 fL (81-99) Mean Corpuscular Hemoglobin 31.0 pg (28-32) Mean Corpuscular Hemoglobin Concent 34.5 g/dL (31-35) Red Cell Distribution Width 13.3 % (11.7-14.4) Platelet Count 264 x10e3/uL (140-360) Neutrophils (%) (Auto) 75.5 % (38.7-80.0) Lymphocytes (%) (Auto) 14.2 % (18.0-39.1) Monocytes (%) (Auto) 7.5 % (4.4-11.3) Eosinophils (%) (Auto) 1.9 % (0.0-6.0) Basophils (%) (Auto) 0.3 % (0.0-1.0) Neutrophils # (Auto) 7.7 (2.1-6.9) Lymphocytes # (Auto) 1.4 (1.0-3.2) Monocytes # (Auto) 0.8 (0.2-0.8) Eosinophils # (Auto) 0.2 (0.0-0.4) Basophils # (Auto) 0.0 (0.0-0.1) Absolute Immature Granulocyte (auto 0.06 x10e3/uL (0-0.1) Prothrombin Time 12.8 seconds (11.9-14.5) Prothromb Time International Ratio 0.92 Activated Partial Thromboplast Time 25.4 seconds (23.8-35.5) Sodium Level 130 mmol/L (136-145) Potassium Level 4.7 mmol/L (3.5-5.1) Chloride Level 91 mmol/L (98-107) Carbon Dioxide Level 27 mmol/L (22-29) Anion Gap 16.7 mmol/L (8-16) Blood Urea Nitrogen 13 mg/dL (7-26) Creatinine 0.78 mg/dL (0.57-1.11) Estimat Glomerular Filtration Rate > 60 ML/MIN (60-) BUN/Creatinine Ratio 17 (6-25) Glucose Level 206 mg/dL (74-118) Calcium Level 9.1 mg/dL (8.4-10.2) Total Bilirubin 0.3 mg/dL (0.2-1.2) Aspartate Amino Transf (AST/SGOT) 23 IU/L (5-34) Alanine Aminotransferase (ALT/SGPT) 11 IU/L (0-55) Alkaline Phosphatase 97 IU/L (40-150) Creatine Kinase 42 IU/L (29-168) Creatine Kinase MB 1.50 ng/mL (0-5.0) Troponin I 0.013 ng/mL (0-0.300) B-Type Natriuretic Peptide 73.7 pg/mL (0-100) Total Protein 7.3 g/dL (6.5-8.1) Albumin 3.5 g/dL (3.5-5.0) Globulin 3.8 g/dL (2.3-3.5) Albumin/Globulin Ratio 0.9 (0.8-2.0) Lab results reviewed: Yes Imaging Imaging results reviewed: Yes Impressions EXAMINATION: CHEST SINGLE (PORTABLE) INDICATION: ^Y ^SOB ^[id number] ^[id number] COMPARISON: CT of the chest on 12/28/2019. FINDINGS: TUBES and LINES: None. LUNGS: Normal lung volumes. There is diffuse interstitial prominence throughout both lungs. There is also hazy opacification the bilateral lung bases. PLEURA: No pleural effusion or pneumothorax. HEART AND MEDIASTINUM: The cardiomediastinal silhouette is unremarkable. BONES AND SOFT TISSUES: No acute osseous lesion. Soft tissues are unremarkable. UPPER ABDOMEN: No free air under the diaphragm. IMPRESSION: 1. Diffuse interstitial prominence throughout both lungs which most likely represents chronic lung changes better demonstrated on comparison CT of the chest. Superimposed reactive airway inflammation or bronchitis is possible. 2. Hazy opacification the bilateral lung bases may represent atelectasis and/or superimposed pneumonia in the proper clinical context. Signed by: Delaney Armando MD on 10/03/2020 4:58 PM Procedures 12 Lead ECG Interpretation ECG Interpretation : ECG: ECG 1 Die Filer: Interpreted by ED physician Date: Oct 03, 2020 Time: 15:53 Rhythm: sinus rhythm Ectopy: infrequent PVC's Rate: normal BPM: 69 ST segments normal: Yes T wave inversion: III Other findings: LVH Clinical Impression: abnormal ECG Assessment & Plan Medical Decision Making MDM H/O PULM FIBROSIS WITH REPORTED INCR SOB & COUGH PER FAMILY - SHE DID NOT COUGH AT ALL WHILE I WAS SEEING HER AND HAS NO RESP DISTRESS AND SHE SAYS SHE DOES NOT FEEL SOB AND IS AT BASELINE - CHECK CBC, CHEM, ECG, CXR, COVID SWAB - R/O PNEUMONIA, BRONCHITIS, COVID19, RENAL INSUFF Reassessment Reassessment DC HOME, F/U PCP AND DR Eric TRINIDAD, DOXYCYCLINE, MEDROL DOSE DAWSON, RTED PRN Assessment & Plan Final Impression: (1) Pulmonary fibrosis (2) Bronchitis Depart Disposition: HOME, SELF-CARE Last Vital Signs Date Time Temp Pulse Resp B/P (MAP) Pulse Ox O2 Delivery O2 Flow Rate FiO2 10/03/20 15:03 98.6 70 18 180/73 100 Room Air Home Meds Reported Medications Memantine Hcl (NAMENDA) 5 Mg Tablet, 5 MG PO BID, TAB 10/03/20 Prednisone (PREDNISONE) 20 Mg Tab, 40 MG PO DAILY, #5 TAB 12/31/19 Cyanocobalamin (VITAMIN B-12) 1,000 Mcg Tab, 1000 MCG INJ SALES EFFECTIVENESS MANAGER, #30 TAB 12/28/19 Pirfenidone (Esbriet) 801 Mg Tablet, 801 MG PO BID 12/28/19 Albuterol Sulfate (ALBUTEROL SULFATE) 0.63 Mg/3 Ml Vial.neb, NEB PRN 10/16/19 Losartan Potassium (LOSARTAN POTASSIUM) 25 Mg Tablet, 50 MG PO HS 10/16/19 Azathioprine (AZATHIOPRINE) 50 Mg Tab, 50 MG PO TID, #30 TAB 10/16/19 [Vitamin B12] No Conflict Check, INJ Q 2 WEEKS 10/16/19 Metoprolol Succinate (METOPROLOL SUCCINATE) 50 Mg Tab.er.24h, 100 MG PO HS, MG 10/16/19 Metformin Hcl (METFORMIN HCL) 500 Mg Tablet, 500 MG PO BID, #60 TAB 10/16/19 Amlodipine Besylate (AMLODIPINE BESYLATE) 5 Mg Tablet, 5 MG PO HS, #30 TAB 10/16/19 Sitagliptin Phosphate (Januvia) 100 Mg Tablet, 100 MG PO DAILY 05/13/11 Discontinued Reported Medications Ciprofloxacin Hcl (CIPRO) 500 Mg Tablet, 250 MG PO Q12H, #10 TAB 12/31/19 Medications in the ED Methylprednisolone Sodium Succinate 125 mg ONCE STAT IV Last administered on 10/03/20at 16:30; Admin Dose 125 MG; Start 10/03/20 at 15:20; Stop 10/03/20 at 15:28; Status DC MONTSE MATTHEWS MD Oct 03, 2020 17:05
[2020-10-03 18:37] VITALS: BP 157/73
== END 2020-10-03 18:39 | disposition home or self-care (01) ==
LOC: ER 15:09
DX: J84.10 Pulmonary fibrosis, unspecified (principal); J40 Bronchitis, not specified as acute or chronic; R05 Cough; R06.02 Shortness of breath; R94.31 Abnormal electrocardiogram [ECG] [EKG]; G30.9 Alzheimer's disease, unspecified; F02.80 Dementia in other diseases classified elsewhere, unspecified severity, without behavioral disturbance, psychotic disturbance, mood disturbance, and anxiety; Z20.828 Contact with and (suspected) exposure to other viral communicable diseases
CPT/HCPCS: 36415; 71045; 80053; 81001; 82550; 82553; 83880; 84484; 85025; 85610; 85730; 87086; 93005; 99284; J2930; U0002

== ENCOUNTER 2021-02-12 01:40 | Inpatient (IN) | payer MEDICARE ==
[2021-02-12] VITALS (8 sets, daily range): BP systolic 131–161; BP diastolic 61–76
[~2021-02-12] VITALS: Ht 149.9 cm; Wt 63.5 kg
[~2021-02-12 01:40] MED LIST changes: +NAMENDA5 MG PO
[2021-02-12] MEDS ORDERED: CEFTRIAXONE SOD 1 GM/50 ML BAG IV ONE (01:45)
[2021-02-12 02:04] LABS: BASOPHILS % 0.4 % (0.0-1.0); EOSINOPHILS % 0.4 % (0.0-6.0); HEMATOCRIT 37.4 % (34.2-44.1); HEMOGLOBIN 12.6 g/dL (12.0-16.0); LYMPHOCYTES # (AUTO) 1.6 (1.0-3.2); MEAN CORPUSCULAR HEMOGLOBIN 31.3 pg (28-32); MEAN CORPUSCULAR HGB CONC 33.7 g/dL (31-35); MONOCYTES # (AUTO) 0.8 (0.2-0.8); MONOCYTES % 8.1 % (4.4-11.3); NEUTROPHILS # (AUTO) 6.9 (2.1-6.9); NEUTROPHILS % 73.7 % (38.7-80.0); PLATELET COUNT 246 x10e3/uL (140-360); RED BLOOD COUNT 4.02 x10e6/uL (3.6-5.1); RED CELL DISTRIBUTION WIDTH 13.2 % (11.7-14.4)
[2021-02-12 02:23] LABS: ALANINE AMINOTRANSFERASE 11 IU/L (0-55); ALBUMIN 4.1 g/dL (3.5-5.0); ALBUMIN/GLOBULIN RATIO 1.1 (0.8-2.0); ALKALINE PHOSPHATASE 107 IU/L (40-150); ANION GAP 19.7 mmol/L (8-16); BLOOD UREA NITROGEN 17 mg/dL (7-26); BUN/CREATININE RATIO 19 (6-25); CALCIUM 9.2 mg/dL (8.4-10.2); CARBON DIOXIDE 21 mmol/L (22-29); CHLORIDE 95 mmol/L (98-107); CREATINE KINASE 100 IU/L (29-168); CREATININE, SERUM 0.88 mg/dL (0.57-1.11); EST GLOMERULAR FILTRATION RATE > 60 ML/MIN (60-); GLUCOSE 237 mg/dL (74-118); POTASSIUM 3.7 mmol/L (3.5-5.1); SODIUM 132 mmol/L (136-145)
[2021-02-12] MEDS ORDERED: FLOMAX0.4 MG PO (02:25)
[2021-02-12] MEDS ORDERED: OMEPRAZOLE40 MG PO (02:25)
[2021-02-12 02:27] LABS: B-TYPE NATRIURETIC PEPTIDE2 38.1 pg/mL (0-100)
[2021-02-12] MEDS ORDERED: ARICEPT10 MG PO (02:27)
[2021-02-12] MEDS ORDERED: SYMBICORT 16010.2 GM INH (02:28)
[2021-02-12] MEDS ORDERED: CEFTRIAXONE SOD 1 GM VIAL ONE (02:39)
[2021-02-12] MEDS ORDERED: SODIUM CHLORIDE 0.9% 50ML 50 ML ONE (02:39)
[2021-02-12] MEDS ORDERED: SODIUM CHLORIDE 0.9% 1000ML 1,000 ML IV ONE ×2 (02:45)
[2021-02-12] MEDS ORDERED: SODIUM CHLORIDE 0.9% 1000ML 1,000 ML IV SCH (03:30)
[2021-02-12] MEDS ORDERED: DEXTROSE 50% SYRINGE 50 ML IV PRN (03:30)
[2021-02-12] MEDS ORDERED: CEFTRIAXONE SOD 1 GM/50 ML BAG IV SCH (03:30)
[2021-02-12] MEDS: ALBUTEROL SULF 0.083% NEB SOLN 3 ML NEB NEB SCH ×3 (03:50→11:26)
[2021-02-12] MEDS: AZITHROMYCIN 500MG/NS 250 ML 250 ML IV SCH (04:20)
[2021-02-12] MEDS ORDERED: IPRATROPIUM BROMIDE 0.02% 2.5 ML NEB NEB SCH (06:00)
[2021-02-12] MEDS: METHYLPREDNISOLONE SOD SUCC 40 MG/ML VIAL 1ML IV SCH ×3 (06:41→17:08)
[2021-02-12] MEDS: INSULIN REGULAR, HUMAN 100 UNIT/1 ML 3ML VIAL SQ SCH ×4 (08:30→21:00)
[2021-02-12 12:32] LABS: CREATINE KINASE MB 2.3 ng/mL (0-5.0)
[2021-02-12] MEDS ORDERED: CYANOCOBALAMIN 1,000 MCG TAB PO SCH (13:45)
[2021-02-12] MEDS: ALBUTEROL/IPRATROPIUM 3 ML NEB NEB SCH ×3 (15:00→23:15)
[2021-02-12] MEDS: AZATHIOPRINE 50 MG TAB PO SCH (17:08)
[2021-02-12] MEDS: MEMANTINE 10 MG TAB PO SCH (17:08)
[2021-02-12] MEDS: BUDESONIDE/FORMOTEROL 160/4.5MCG INHALER INH SCH (19:30)
[2021-02-12] MEDS: AMLODIPINE BESYLATE 5 MG TAB PO SCH (22:07)
[2021-02-12] MEDS: LOSARTAN POTASSIUM 25 MG TAB PO SCH (22:07)
[2021-02-13] VITALS (8 sets, daily range): BP systolic 108–169; BP diastolic 44–74
[2021-02-13] MEDS: METHYLPREDNISOLONE SOD SUCC 40 MG/ML VIAL 1ML IV SCH ×3 (00:29→20:49)
[2021-02-13 01:08] LABS: CREATINE KINASE MB 2.2 ng/mL (0-5.0)
[2021-02-13] MEDS: AZITHROMYCIN 500MG/NS 250 ML 250 ML IV SCH (02:32)
[2021-02-13] MEDS: ALBUTEROL/IPRATROPIUM 3 ML NEB NEB SCH ×5 (02:46→18:55)
[2021-02-13] MEDS ORDERED: CEFTRIAXONE SOD 1 GM in SODIUM CHLORIDE 0.9% 50ML 50 ML IV SCH ×2 (03:30→21:00)
[2021-02-13 07:02] LABS: HEMATOCRIT 34.2 % (34.2-44.1); HEMOGLOBIN 11.1 g/dL (12.0-16.0); LYMPHOCYTES # (AUTO) 0.5 (1.0-3.2); LYMPHOCYTES % 7.4 % (18.0-39.1); MEAN CORPUSCULAR HGB CONC 32.5 g/dL (31-35); MEAN CORPUSCULAR VOLUME 95.5 fL (81-99); MONOCYTES # (AUTO) 0.2 (0.2-0.8); MONOCYTES % 2.4 % (4.4-11.3); NEUTROPHILS # (AUTO) 6.4 (2.1-6.9); NEUTROPHILS % 89.6 % (38.7-80.0); PLATELET COUNT 233 x10e3/uL (140-360); RED BLOOD COUNT 3.58 x10e6/uL (3.6-5.1); RED CELL DISTRIBUTION WIDTH 13.5 % (11.7-14.4)
[2021-02-13] MEDS: BUDESONIDE/FORMOTEROL 160/4.5MCG INHALER INH SCH ×2 (07:09→18:55)
[2021-02-13 07:48] LABS: ALANINE AMINOTRANSFERASE 8 IU/L (0-55); ALBUMIN 3.3 g/dL (3.5-5.0); ALKALINE PHOSPHATASE 82 IU/L (40-150); ANION GAP 13.9 mmol/L (8-16); BLOOD UREA NITROGEN 16 mg/dL (7-26); BUN/CREATININE RATIO 24 (6-25); CALCIUM 8.9 mg/dL (8.4-10.2); CARBON DIOXIDE 24 mmol/L (22-29); CHLORIDE 101 mmol/L (98-107); CREATININE, SERUM 0.67 mg/dL (0.57-1.11); EST GLOMERULAR FILTRATION RATE > 60 ML/MIN (60-); GLUCOSE 234 mg/dL (74-118); POTASSIUM 3.9 mmol/L (3.5-5.1); SODIUM 135 mmol/L (136-145)
[2021-02-13] MEDS: DONEPEZIL HCL 5 MG TAB PO SCH (08:49)
[2021-02-13] MEDS: AZATHIOPRINE 50 MG TAB PO SCH ×2 (08:49→17:21)
[2021-02-13] MEDS: MEMANTINE 10 MG TAB PO SCH ×2 (08:49→17:21)
[2021-02-13] MEDS: INSULIN REGULAR, HUMAN 100 UNIT/1 ML 3ML VIAL SQ SCH ×3 (12:30→21:45)
[2021-02-13] MEDS ORDERED: LORAZEPAM 0.5 MG TAB PO ONE (18:15)
[2021-02-13] MEDS ORDERED: LORAZEPAM 0.5 MG TAB PO PRN (18:15)
[2021-02-13] MEDS: LOSARTAN POTASSIUM 25 MG TAB PO SCH (20:49)
[2021-02-13] MEDS: AMLODIPINE BESYLATE 5 MG TAB PO SCH (20:49)
[2021-02-14] VITALS: BP 127/67
[2021-02-14] MEDS: ALBUTEROL/IPRATROPIUM 3 ML NEB NEB SCH ×3 (01:08→08:52)
[2021-02-14] MEDS: AZITHROMYCIN 500MG/NS 250 ML 250 ML IV SCH (03:01)
[2021-02-14 04:00] VITALS: BP 125/59
[2021-02-14 05:58] LABS: HEMATOCRIT 33.9 % (34.2-44.1); HEMOGLOBIN 11.4 g/dL (12.0-16.0); LYMPHOCYTES # (AUTO) 0.5 (1.0-3.2); LYMPHOCYTES % 6.3 % (18.0-39.1); MEAN CORPUSCULAR HGB CONC 33.6 g/dL (31-35); MEAN CORPUSCULAR VOLUME 95.2 fL (81-99); MONOCYTES # (AUTO) 0.2 (0.2-0.8); MONOCYTES % 2.8 % (4.4-11.3); NEUTROPHILS # (AUTO) 7.8 (2.1-6.9); NEUTROPHILS % 90.4 % (38.7-80.0); PLATELET COUNT 246 x10e3/uL (140-360); RED BLOOD COUNT 3.56 x10e6/uL (3.6-5.1); RED CELL DISTRIBUTION WIDTH 13.7 % (11.7-14.4)
[2021-02-14 06:52] LABS: ANION GAP 16.4 mmol/L (8-16); BLOOD UREA NITROGEN 16 mg/dL (7-26); BUN/CREATININE RATIO 22 (6-25); CALCIUM 8.3 mg/dL (8.4-10.2); CARBON DIOXIDE 24 mmol/L (22-29); CHLORIDE 100 mmol/L (98-107); CREATININE, SERUM 0.74 mg/dL (0.57-1.11); EST GLOMERULAR FILTRATION RATE > 60 ML/MIN (60-); GLUCOSE 262 mg/dL (74-118); POTASSIUM 4.4 mmol/L (3.5-5.1); SODIUM 136 mmol/L (136-145)
[2021-02-14] MEDS: INSULIN REGULAR, HUMAN 100 UNIT/1 ML 3ML VIAL SQ SCH (07:30)
[2021-02-14 07:48] LABS: LYMPHOCYTES % (MANUAL) 5 % (19-48); MONOCYTES % (MANUAL) 2 % (3.4-9.0); NEUTROPHILS % (MANUAL) 92 % (40-74); PLATELET ESTIMATE ADEQUATE; PLATELET MORPHOLOGY COMMENT NORMAL; POIKILOCYTOSIS SLIGHT; RBC MORPHOLOGY COMMENT NORMAL
[2021-02-14 07:51] VITALS: BP 142/72
[2021-02-14] MEDS: BUDESONIDE/FORMOTEROL 160/4.5MCG INHALER INH SCH (08:52)
[2021-02-14] MEDS: METHYLPREDNISOLONE SOD SUCC 40 MG/ML VIAL 1ML IV SCH (08:59)
[2021-02-14 09:00] VITALS: BP 142/72
[2021-02-14] MEDS: MEMANTINE 10 MG TAB PO SCH (09:00)
[2021-02-14] MEDS: DONEPEZIL HCL 5 MG TAB PO SCH (09:00)
[2021-02-14] MEDS: AZATHIOPRINE 50 MG TAB PO SCH (09:00)
== END 2021-02-14 09:12 | disposition home or self-care (01) | DRG 178 ==
LOC: ER 01:44 → ERHOLD 03:26 → MED/SURG2 05:26
PROVIDERS: ADMIT Internal Medicine; ATTEND Internal Medicine
DX: J15.6 Pneumonia due to other Gram-negative bacteria (principal); E87.2 Acidosis; I13.0 Hypertensive heart and chronic kidney disease with heart failure and stage 1 through stage 4 chronic kidney disease, or unspecified chronic kidney disease; I50.32 Chronic diastolic (congestive) heart failure; M34.81 Systemic sclerosis with lung involvement; E44.0 Moderate protein-calorie malnutrition; J84.10 Pulmonary fibrosis, unspecified; E11.22 Type 2 diabetes mellitus with diabetic chronic kidney disease; I12.9 Hypertensive chronic kidney disease with stage 1 through stage 4 chronic kidney disease, or unspecified chronic kidney disease; N18.9 Chronic kidney disease, unspecified; K21.9 Gastro-esophageal reflux disease without esophagitis; Z90.49 Acquired absence of other specified parts of digestive tract; Z88.1 Allergy status to other antibiotic agents; Z20.822 Contact with and (suspected) exposure to COVID-19; F03.90 Unspecified dementia, unspecified severity, without behavioral disturbance, psychotic disturbance, mood disturbance, and anxiety; J47.9 Bronchiectasis, uncomplicated; Z83.3 Family history of diabetes mellitus; T38.3X5A Adverse effect of insulin and oral hypoglycemic [antidiabetic] drugs, initial encounter; Z87.891 Personal history of nicotine dependence; Z79.84 Long term (current) use of oral hypoglycemic drugs; Z68.28 Body mass index [BMI] 28.0-28.9, adult
CPT/HCPCS: 36415; 71045; 80048; 80053; 82550; 82553; 82948; 83605; 83880; 84484; 85025; 87040; 93005; 94640; 94664; 99284; J0456; J0696; J1817; J2920; J7030; U0002

== ENCOUNTER → 2021-07-25 | Outpatient (CLI) | payer MEDICARE ==
[~2021-07-25] MED LIST changes: +ARICEPT10 MG PO; +FLOMAX0.4 MG PO
== END ==
LOC: DX 11:47
PROVIDERS: ATTEND Internal Medicine
DX: N39.0 Urinary tract infection, site not specified (principal); B96.20 Unspecified Escherichia coli [E. coli] as the cause of diseases classified elsewhere
CPT/HCPCS: 36569; 71045

== ENCOUNTER → 2021-11-03 | Outpatient (CLI) | payer MEDICARE ==
[2021-10-31 13:24] LABS: HEMOGLOBIN 12.1 g/dL (12.0-16.0)
[2021-10-31 13:58] LABS: CREATININE, SERUM 0.92 mg/dL (0.57-1.11)
== END ==
LOC: DX 07:58
PROVIDERS: ATTEND Internal Medicine
DX: N39.0 Urinary tract infection, site not specified (principal); B96.1 Klebsiella pneumoniae [K. pneumoniae] as the cause of diseases classified elsewhere
CPT/HCPCS: 36415; 36569; 71045; 82565; 84520; 85014; 85049

== ENCOUNTER → 2021-12-09 | Outpatient (CLI) | payer MEDICARE | LOC: RAD 09:34 | PROVIDERS: ATTEND Internal Medicine Critical Care Medicine | DX: J44.9 Chronic obstructive pulmonary disease, unspecified (principal) | CPT/HCPCS: 71046 ==

== ENCOUNTER 2022-01-18 18:32 | Inpatient (IN) | payer MEDICARE ==
[~2022-01-18] VITALS: Ht 160 cm; Wt 63.5 kg
[2022-01-18 19:01] LABS: BASOPHILS % 0.2 % (0.0-1.0); HEMATOCRIT 32.9 % (34.2-44.1); HEMOGLOBIN 10.9 g/dL (12.0-16.0); LYMPHOCYTES # (AUTO) 1.8 (1.0-3.2); LYMPHOCYTES % 12.4 % (18.0-39.1); MEAN CORPUSCULAR HEMOGLOBIN 30.7 pg (28-32); MEAN CORPUSCULAR HGB CONC 33.1 g/dL (31-35); MEAN CORPUSCULAR VOLUME 92.7 fL (81-99); MONOCYTES # (AUTO) 1.2 (0.2-0.8); MONOCYTES % 8.3 % (4.4-11.3); NEUTROPHILS # (AUTO) 11.1 (2.1-6.9); NEUTROPHILS % 78.8 % (38.7-80.0); PLATELET COUNT 236 x10e3/uL (140-360); RED BLOOD COUNT 3.55 x10e6/uL (3.6-5.1); RED CELL DISTRIBUTION WIDTH 13.4 % (11.7-14.4)
[2022-01-18] MEDS ORDERED: CEFTRIAXONE 1 GM in SODIUM CHLORIDE 0.9% 50ML 50 ML IV ONE (19:15)
[2022-01-18] MEDS ORDERED: SODIUM CHLORIDE 0.9% 1000ML 1,000 ML IV ONE (19:15)
[2022-01-18 19:17] LABS: ALBUMIN 2.9 g/dL (3.5-5.0); ALBUMIN/GLOBULIN RATIO 0.6 (0.8-2.0); ALKALINE PHOSPHATASE 66 IU/L (40-150); ANION GAP 13.1 mmol/L (8-16); BLOOD UREA NITROGEN 15 mg/dL (7-26); BUN/CREATININE RATIO 13 (6-25); CALCIUM 9.3 mg/dL (8.4-10.2); CARBON DIOXIDE 26 mmol/L (22-29); CHLORIDE 96 mmol/L (98-107); CREATINE KINASE 38 IU/L (29-168); CREATININE, SERUM 1.16 mg/dL (0.57-1.11); EST GLOMERULAR FILTRATION RATE 45 ML/MIN (60-); GLUCOSE 301 mg/dL (74-118); POTASSIUM 4.1 mmol/L (3.5-5.1); SODIUM 131 mmol/L (136-145)
[2022-01-18 19:18] LABS: ALANINE AMINOTRANSFERASE < 6 IU/L (0-55)
[2022-01-18 19:46] LABS: CLARITY,URINE CLOUDY (CLEAR); COLOR,URINE AMBER (YELLOW); KETONES,URINE TRACE (NEGATIVE); LEUKOCYTE ESTERASE ,URINE SMALL (NEGATIVE); NITRITE,URINE NEGATIVE (NEGATIVE); PROTEIN,URINE DIPSTICK 2+ (NEGATIVE); URINE UROBILINOGEN 0.2 mg/dL (0.2 - 1)
[2022-01-18 19:57] LABS: BACTERIA,URINE MANY /HPF; RBC,URINE 21-50 /HPF (0-5); WBC,URINE (MAN) 21-50 /HPF (0-5)
[2022-01-18] MEDS ORDERED: ONDANSETRON HCL INJ 2MG/ML 2ML 2 MG/ML VIAL IV PRN (20:30)
[2022-01-18] MEDS ORDERED: DEXTROSE 50% SYRINGE 50 ML IV PRN (20:30)
[2022-01-18] MEDS ORDERED: ACETAMINOPHEN 325 MG TAB PO PRN (20:30)
[2022-01-18] MEDS: SODIUM CHLORIDE 0.9% 1000ML 1,000 ML IV SCH (22:28)
[2022-01-18 22:40] VITALS: BP 145/70
[2022-01-18] MEDS: INSULIN REGULAR, HUMAN 100 UNIT/1 ML SQ SCH (22:41)
[2022-01-19] VITALS (9 sets, daily range): BP systolic 109–145; BP diastolic 41–82
[2022-01-19] MEDS: SODIUM CHLORIDE 0.9% 1000ML 1,000 ML IV SCH ×3 (03:47→21:11)
[2022-01-19 05:40] LABS: BASOPHILS % 0.3 % (0.0-1.0); EOSINOPHILS # (AUTO) 0.1 (0.0-0.4); EOSINOPHILS % 0.9 % (0.0-6.0); HEMATOCRIT 33.4 % (34.2-44.1); HEMOGLOBIN 10.6 g/dL (12.0-16.0); LYMPHOCYTES # (AUTO) 1.2 (1.0-3.2); LYMPHOCYTES % 11.8 % (18.0-39.1); MEAN CORPUSCULAR HEMOGLOBIN 30.8 pg (28-32); MEAN CORPUSCULAR HGB CONC 31.7 g/dL (31-35); MEAN CORPUSCULAR VOLUME 97.1 fL (81-99); MONOCYTES # (AUTO) 0.9 (0.2-0.8); MONOCYTES % 8.8 % (4.4-11.3); NEUTROPHILS # (AUTO) 7.8 (2.1-6.9); NEUTROPHILS % 77.7 % (38.7-80.0); PLATELET COUNT 188 x10e3/uL (140-360); RED BLOOD COUNT 3.44 x10e6/uL (3.6-5.1); RED CELL DISTRIBUTION WIDTH 13.7 % (11.7-14.4)
[2022-01-19 06:02] LABS: ALBUMIN 2.4 g/dL (3.5-5.0); ALBUMIN/GLOBULIN RATIO 0.6 (0.8-2.0); ALKALINE PHOSPHATASE 60 IU/L (40-150); ANION GAP 12.8 mmol/L (8-16); BLOOD UREA NITROGEN 12 mg/dL (7-26); BUN/CREATININE RATIO 15 (6-25); CALCIUM 8.7 mg/dL (8.4-10.2); CARBON DIOXIDE 24 mmol/L (22-29); CHLORIDE 103 mmol/L (98-107); CREATININE, SERUM 0.82 mg/dL (0.57-1.11); EST GLOMERULAR FILTRATION RATE 67 ML/MIN (60-); GLUCOSE 138 mg/dL (74-118); POTASSIUM 3.8 mmol/L (3.5-5.1); SODIUM 136 mmol/L (136-145)
[2022-01-19 06:23] LABS: ALANINE AMINOTRANSFERASE < 6 IU/L (0-55)
[2022-01-19] MEDS ORDERED: CYANOCOBALAMIN 1,000 MCG TAB PO SCH (07:00)
[2022-01-19] MEDS: BUDESONIDE/FORMOTEROL 160/4.5MCG INHALER INH SCH ×2 (07:30→19:13)
[2022-01-19] MEDS: INSULIN REGULAR, HUMAN 100 UNIT/1 ML SQ SCH ×4 (07:30→21:14)
[2022-01-19] MEDS ORDERED: PANTOPRAZOLE SOD 40 MG TABEC PO SCH (07:30)
[2022-01-19] MEDS ORDERED: AZATHIOPRINE 50 MG TAB PO SCH (09:00)
[2022-01-19] MEDS: PIRFENIDONE 801 MG PO SCH ×3 (09:00→21:00)
[2022-01-19] MEDS: MEMANTINE 10 MG TAB PO SCH ×2 (09:15→16:40)
[2022-01-19] MEDS: DONEPEZIL HCL 5 MG TAB PO SCH (09:15)
[2022-01-19] MEDS: CEFTRIAXONE 1 GM in SODIUM CHLORIDE 0.9% 50ML 50 ML IV SCH ×2 (09:15→21:11)
[2022-01-19] MEDS: SITAGLIPTIN 100 MG TAB PO SCH (12:50)
[2022-01-19] MEDS ORDERED: ALBUTEROL/IPRATROPIUM 3 ML NEB NEB ONE (14:45)
[2022-01-19] MEDS: GUAIFENESIN 600 MG TAB PO SCH ×2 (16:40→21:11)
[2022-01-19] MEDS: ALBUTEROL/IPRATROPIUM 3 ML NEB NEB SCH ×2 (18:57→23:20)
[2022-01-19] MEDS ORDERED: CEFTRIAXONE 1 GM in SODIUM CHLORIDE 0.9% 50ML 50 ML IV SCH (20:00)
[2022-01-19] MEDS ORDERED: LOSARTAN POTASSIUM 25 MG TAB PO SCH (21:00)
[2022-01-19] MEDS ORDERED: METOPROLOL SUCCINATE 50 MG TAB XL PO SCH (21:00)
[2022-01-19] MEDS ORDERED: AMLODIPINE BESYLATE 5 MG TAB PO SCH (21:00)
[2022-01-20] VITALS (7 sets, daily range): BP systolic 104–155; BP diastolic 53–82
[2022-01-20] MEDS: ALBUTEROL/IPRATROPIUM 3 ML NEB NEB SCH ×5 (04:20→18:53)
[2022-01-20] MEDS: SODIUM CHLORIDE 0.9% 1000ML 1,000 ML IV SCH (04:43)
[2022-01-20 05:33] LABS: BASOPHILS % 0.4 % (0.0-1.0); EOSINOPHILS # (AUTO) 0.1 (0.0-0.4); EOSINOPHILS % 1.1 % (0.0-6.0); HEMATOCRIT 27.8 % (34.2-44.1); HEMOGLOBIN 8.9 g/dL (12.0-16.0); LYMPHOCYTES # (AUTO) 1.6 (1.0-3.2); MEAN CORPUSCULAR HEMOGLOBIN 30.2 pg (28-32); MEAN CORPUSCULAR VOLUME 94.2 fL (81-99); MONOCYTES # (AUTO) 0.7 (0.2-0.8); MONOCYTES % 9.6 % (4.4-11.3); NEUTROPHILS # (AUTO) 5.1 (2.1-6.9); NEUTROPHILS % 67.5 % (38.7-80.0); PLATELET COUNT 204 x10e3/uL (140-360); RED BLOOD COUNT 2.95 x10e6/uL (3.6-5.1); RED CELL DISTRIBUTION WIDTH 13.4 % (11.7-14.4)
[2022-01-20 05:49] LABS: ANION GAP 9.4 mmol/L (8-16); CALCIUM 7.8 mg/dL (8.4-10.2); CREATININE, SERUM 0.7 mg/dL (0.57-1.11); POTASSIUM 3.4 mmol/L (3.5-5.1)
[2022-01-20] MEDS: BUDESONIDE/FORMOTEROL 160/4.5MCG INHALER INH SCH ×2 (06:28→19:09)
[2022-01-20] MEDS ORDERED: ONDANSETRON HCL 4 MG ORAL DISINTEGRATING TAB PO PRN (07:00)
[2022-01-20] MEDS ORDERED: POTASSIUM CHLORIDE 20MEQ/100ML 100 ML IV ONE (07:15)
[2022-01-20] MEDS: INSULIN REGULAR, HUMAN 100 UNIT/1 ML SQ SCH ×3 (07:30→17:31)
[2022-01-20] MEDS: PIRFENIDONE 801 MG PO SCH ×2 (08:51→15:00)
[2022-01-20] MEDS ORDERED: AZATHIOPRINE 50 MG TAB PO SCH (09:00)
[2022-01-20] MEDS: CEFTRIAXONE 1 GM in SODIUM CHLORIDE 0.9% 50ML 50 ML IV SCH (10:38)
[2022-01-20] MEDS ORDERED: PROPOFOL IV EMULSION 10 MG/ML 20 ML VIAL ONE (12:07)
[2022-01-20] MEDS ORDERED: LIDOCAINE HCL 2% LOCAL INJ 5 ML SDV VIAL INJ ONE (12:07)
[2022-01-20] MEDS ORDERED: PANTOPRAZOLE SOD 40 MG TABEC PO ONE (12:15)
[2022-01-20] MEDS: MEMANTINE 10 MG TAB PO SCH ×2 (14:01→16:23)
[2022-01-20] MEDS: MEROPENEM 1 GM in SODIUM CHLORIDE 0.9% 100 ML IV SCH ×2 (14:01→19:17)
[2022-01-20] MEDS: SITAGLIPTIN 100 MG TAB PO SCH (14:01)
[2022-01-20] MEDS: GUAIFENESIN 600 MG TAB PO SCH (14:01)
[2022-01-20] MEDS: DONEPEZIL HCL 5 MG TAB PO SCH (14:01)
[2022-01-20] MEDS ORDERED: SUCRALFATE 1 GM TAB PO SCH (16:30)
[2022-01-20] MEDS ORDERED: PANTOPRAZOLE SOD 40 MG TABEC PO SCH (16:30)
[2022-01-20] MEDS ORDERED: MEROPENEM1 GM IV (21:11)
[2022-01-20] MEDS ORDERED: CARAFATE1 GM PO (21:12)
[2022-01-20] MEDS ORDERED: PANTOPRAZOLE SO40 MG PO (21:12)
== END 2022-01-20 22:30 | disposition home health service (06) | DRG 871 ==
LOC: ER 18:44 → ERHOLD 20:27 → MED/SURG2 22:16
PROVIDERS: ADMIT Internal Medicine; ATTEND Internal Medicine
PROC: 02HV33Z Insertion of Infusion Device into Superior Vena Cava, Percutaneous Approach (ICD-10-PCS; 2022-01-20)
PROC: XW043N5 Introduction of Meropenem-vaborbactam Anti-infective into Central Vein, Percutaneous Approach, New Technology Group 5 (ICD-10-PCS; 2022-01-20)
PROC: 0DB78ZX Excision of Stomach, Pylorus, Via Natural or Artificial Opening Endoscopic, Diagnostic (ICD-10-PCS; principal; 2022-01-20 14:30)
PROC: 0D758ZZ Dilation of Esophagus, Via Natural or Artificial Opening Endoscopic (ICD-10-PCS; 2022-01-20 14:30)
DX: A41.59 Other Gram-negative sepsis (principal); G93.41 Metabolic encephalopathy; E43 Unspecified severe protein-calorie malnutrition; N39.0 Urinary tract infection, site not specified; Z16.12 Extended spectrum beta lactamase (ESBL) resistance; I50.32 Chronic diastolic (congestive) heart failure; M34.81 Systemic sclerosis with lung involvement; I13.0 Hypertensive heart and chronic kidney disease with heart failure and stage 1 through stage 4 chronic kidney disease, or unspecified chronic kidney disease; R65.20 Severe sepsis without septic shock; B96.1 Klebsiella pneumoniae [K. pneumoniae] as the cause of diseases classified elsewhere; R13.10 Dysphagia, unspecified; Z68.24 Body mass index [BMI] 24.0-24.9, adult; E11.42 Type 2 diabetes mellitus with diabetic polyneuropathy; Z79.899 Other long term (current) drug therapy; E03.9 Hypothyroidism, unspecified; Z87.891 Personal history of nicotine dependence; F03.90 Unspecified dementia, unspecified severity, without behavioral disturbance, psychotic disturbance, mood disturbance, and anxiety; K22.2 Esophageal obstruction; K44.9 Diaphragmatic hernia without obstruction or gangrene; K29.70 Gastritis, unspecified, without bleeding; K20.90 Esophagitis, unspecified without bleeding; J84.178 Other interstitial pulmonary diseases with fibrosis in diseases classified elsewhere; J47.9 Bronchiectasis, uncomplicated; Z88.1 Allergy status to other antibiotic agents; N28.9 Disorder of kidney and ureter, unspecified; N18.1 Chronic kidney disease, stage 1
CPT/HCPCS: 36415; 36569; 43239; 43450; 71045; 80048; 80053; 81001; 82550; 82553; 82948; 83605; 83880; 84484; 85025; 87040; 87071; 87086; 87186; 87205; 88305; 88312; 93005; 94640; 94664; 94799; 99251; 99284; J0696; J1817; J2001; J2185; J3480; J7030; J7050; U0002

== ENCOUNTER → 2022-03-14 | Outpatient (CLI) | payer MEDICARE ==
[2022-03-10 13:28] LABS: BASOPHILS % 0.3 % (0.0-1.0); EOSINOPHILS # (AUTO) 0.2 (0.0-0.4); EOSINOPHILS % 1.9 % (0.0-6.0); HEMATOCRIT 36.2 % (34.2-44.1); HEMOGLOBIN 11.7 g/dL (12.0-16.0); LYMPHOCYTES % 25.5 % (18.0-39.1); MEAN CORPUSCULAR HEMOGLOBIN 30.5 pg (28-32); MEAN CORPUSCULAR HGB CONC 32.3 g/dL (31-35); MEAN CORPUSCULAR VOLUME 94.3 fL (81-99); MONOCYTES # (AUTO) 0.6 (0.2-0.8); MONOCYTES % 7.7 % (4.4-11.3); NEUTROPHILS # (AUTO) 5.1 (2.1-6.9); NEUTROPHILS % 64.5 % (38.7-80.0); PLATELET COUNT 223 x10e3/uL (140-360); RED BLOOD COUNT 3.84 x10e6/uL (3.6-5.1); RED CELL DISTRIBUTION WIDTH 13.5 % (11.7-14.4)
[2022-03-10 13:46] LABS: ALBUMIN 3.2 g/dL (3.5-5.0); ALBUMIN/GLOBULIN RATIO 0.7 (0.8-2.0); ANION GAP 13.4 mmol/L (8-16); CALCIUM 8.8 mg/dL (8.4-10.2); CREATININE, SERUM 0.83 mg/dL (0.57-1.11); POTASSIUM 4.4 mmol/L (3.5-5.1)
[~2022-03-14] VITALS: Ht 160 cm; Wt 63.5 kg
[~2022-03-14] MED LIST changes: +ALBUT NEB; +ALPRAZOLAM 0.5 MG TAB ONE; +CARAFATE1 GM PO; +DIPHENHYDRAMINE HCL 25 MG CAP ONE; +FLONASE ALLERG9.9 ML INH; +HEPARIN SOD/SOD CHLORIDE 2,000 ML ONE; +IOPAMIDOL 370 MG/ML 100 ML INFUS..BTL INJ ONE; +IPRATROPIUM NEB; +LIDOCAINE HCL 2% LOCAL 20 ML VIAL ONE; +MAGOX 400400 MG PO; +MEROPENEM1 GM IV; +PANTOPRAZOLE SO40 MG PO; +PROVENTIL HFA6.7 GM INH; +SODIUM CHLORIDE 0.9% 1000ML 1,000 ML ONE; +VERAPAMIL HCL 2.5 MG/ML 2 ML VIAL ONE
[2022-03-14 12:32] VITALS: BP 144/66
== END ==
LOC: LAB 11:05 → CATH LAB 11:05 → EDSTATUS 14:00
PROVIDERS: ATTEND Internal Medicine Interventional Cardiology
DX: I73.9 Peripheral vascular disease, unspecified (principal); Z53.9 Procedure and treatment not carried out, unspecified reason; Z20.822 Contact with and (suspected) exposure to COVID-19
CPT/HCPCS: 36415 ×2; 80053; 82948; 83880; 85025; J2001; J7030; Q9967; U0002

== ENCOUNTER → 2022-03-24 | Day surgery (SDC) | payer MEDICARE ==
[2022-03-24] VITALS (16 sets, daily range): BP systolic 111–151; BP diastolic 49–62
[~2022-03-24] VITALS: Ht 160 cm; Wt 63.5 kg
[~2022-03-24] MED LIST changes: -ALPRAZOLAM 0.5 MG TAB ONE; -DIPHENHYDRAMINE HCL 25 MG CAP ONE; +FENTANYL CITRATE/PF 100MCG/2 ML INJ ONE; +MIDAZOLAM HCL 2 MG/2 ML VIAL ONE
== END | disposition home or self-care (01) ==
LOC: CATH LAB 10:22
PROVIDERS: ATTEND Internal Medicine Interventional Cardiology
DX: I25.119 Atherosclerotic heart disease of native coronary artery with unspecified angina pectoris (principal); I27.20 Pulmonary hypertension, unspecified; I11.0 Hypertensive heart disease with heart failure; I50.9 Heart failure, unspecified; I73.9 Peripheral vascular disease, unspecified; E11.9 Type 2 diabetes mellitus without complications; Z79.899 Other long term (current) drug therapy; Z79.84 Long term (current) use of oral hypoglycemic drugs; Z82.49 Family history of ischemic heart disease and other diseases of the circulatory system; Z83.3 Family history of diabetes mellitus
CPT/HCPCS: 76937; 93460; C1751; C1760; C1887; J2001; J2250; J3010; J7030; Q9967; 99152; 99153

== ENCOUNTER 2022-07-29 11:02 | Inpatient (IN) | payer MEDICARE ==
[~2022-07-29] VITALS: Ht 157.5 cm; Wt 60.3 kg
[~2022-07-29 11:02] MED LIST changes: -FENTANYL CITRATE/PF 100MCG/2 ML INJ ONE; -HEPARIN SOD/SOD CHLORIDE 2,000 ML ONE; -IOPAMIDOL 370 MG/ML 100 ML INFUS..BTL INJ ONE; -LIDOCAINE HCL 2% LOCAL 20 ML VIAL ONE; -MIDAZOLAM HCL 2 MG/2 ML VIAL ONE; -SODIUM CHLORIDE 0.9% 1000ML 1,000 ML ONE; -VERAPAMIL HCL 2.5 MG/ML 2 ML VIAL ONE
[2022-07-29] MEDS ORDERED: METHYLPREDNISOLONE SOD SUCC 125 MG/2ML VIAL IV STA (11:43)
[2022-07-29] MEDS ORDERED: ALBUTEROL/IPRATROPIUM 3 ML NEB NEB ONE (11:45)
[2022-07-29 12:09] LABS: BASOPHILS % 0.1 % (0.0-1.0); HEMATOCRIT 31.4 % (34.2-44.1); LYMPHOCYTES # (AUTO) 0.8 (1.0-3.2); LYMPHOCYTES % 5.8 % (18.0-39.1); MEAN CORPUSCULAR HEMOGLOBIN 30.8 pg (28-32); MEAN CORPUSCULAR HGB CONC 31.8 g/dL (31-35); MEAN CORPUSCULAR VOLUME 96.6 fL (81-99); MONOCYTES # (AUTO) 1.2 (0.2-0.8); MONOCYTES % 9.1 % (4.4-11.3); NEUTROPHILS # (AUTO) 11.4 (2.1-6.9); NEUTROPHILS % 84.7 % (38.7-80.0); PLATELET COUNT 279 x10e3/uL (140-360); RED BLOOD COUNT 3.25 x10e6/uL (3.6-5.1); RED CELL DISTRIBUTION WIDTH 14.3 % (11.7-14.4)
[2022-07-29 12:17] LABS: INR 0.97; PROTHROMBIN TIME 13.8 seconds (11.9-14.5)
[2022-07-29 12:18] LABS: PARTIAL THROMBOPLASTIN TIME 31.4 seconds (23.8-35.5)
[2022-07-29] MEDS ORDERED: SODIUM CHLORIDE 0.9% 1000ML 1,000 ML IV STA ×2 (12:22)
[2022-07-29 12:27] LABS: ALBUMIN 2.8 g/dL (3.5-5.0); ALBUMIN/GLOBULIN RATIO 0.6 (0.8-2.0); ALKALINE PHOSPHATASE 61 IU/L (40-150); ANION GAP 20.1 mmol/L (8-16); BLOOD UREA NITROGEN 25 mg/dL (7-26); BUN/CREATININE RATIO 24 (6-25); CALCIUM 8.9 mg/dL (8.4-10.2); CARBON DIOXIDE 20 mmol/L (22-29); CHLORIDE 96 mmol/L (98-107); CREATINE KINASE 42 IU/L (29-168); CREATININE, SERUM 1.04 mg/dL (0.57-1.11); GLUCOSE 250 mg/dL (74-118); MAGNESIUM 1.6 MG/DL (1.3-2.1); POTASSIUM 4.1 mmol/L (3.5-5.1); SODIUM 132 mmol/L (136-145)
[2022-07-29 12:30] LABS: CLARITY,URINE HAZY (CLEAR); COLOR,URINE YELLOW (YELLOW)
[2022-07-29 12:31] LABS: ALANINE AMINOTRANSFERASE < 6 IU/L (0-55); KETONES,URINE TRACE (NEGATIVE); LEUKOCYTE ESTERASE ,URINE TRACE (NEGATIVE); NITRITE,URINE NEGATIVE (NEGATIVE); PROTEIN,URINE DIPSTICK 2+ (NEGATIVE); URINE UROBILINOGEN 1 mg/dL (0.2 - 1)
[2022-07-29] MEDS ORDERED: SODIUM CHLORIDE 0.9% 1000ML 2,000 ML ONE (12:38)
[2022-07-29] MEDS ORDERED: CEFTRIAXONE 1 GM VIAL ONE (12:38)
[2022-07-29 12:46] LABS: BACTERIA,URINE MANY /HPF; EPITHELIAL CELLS,URINE MANY /LPF; RBC,URINE 0-5 /HPF (0-5)
[2022-07-29] MEDS ORDERED: ALBUTEROL/IPRATROPIUM 3 ML NEB NEB PRN (14:30)
[2022-07-29] MEDS ORDERED: ONDANSETRON HCL INJ 2MG/ML 2ML 2 MG/ML VIAL IV PRN (14:30)
[2022-07-29] MEDS ORDERED: DEXTROSE 50% SYRINGE 50 ML IV PRN (14:30)
[2022-07-29] MEDS ORDERED: ZOLPIDEM TARTRATE 5 MG TAB PO PRN (14:30)
[2022-07-29] MEDS ORDERED: SODIUM CHLORIDE 0.9% 1000ML 1,000 ML IV SCH (14:45)
[2022-07-29] MEDS ORDERED: SODIUM CHLORIDE 0.9% 1000ML 1,000 ML ONE (15:44)
[2022-07-29] MEDS ORDERED: INSULIN REGULAR, HUMAN 100 UNIT/1 ML SQ SCH (16:30)
[2022-07-29 18:05] VITALS: BP 137/76
[2022-07-29] MEDS: CEFEPIME 2 GM in SODIUM CHLORIDE 0.9% 100 ML IV SCH ×2 (18:06→21:00)
[2022-07-29] MEDS ORDERED: INFLUENZA VIRUS VAC SPLIT INJ 0.5 ML SYR IM ONE (18:12)
[2022-07-29 18:37] VITALS: BP 137/76
[2022-07-29 18:39] VITALS: BP 137/76
[2022-07-29 19:15] VITALS: BP 120/58
[2022-07-29 19:26] LABS: CREATINE KINASE MB 2.9 ng/mL (0-5.0)
[2022-07-29 20:00] VITALS: BP 120/58
[2022-07-29] MEDS ORDERED: METHYLPREDNISOLONE SOD SUCC 125 MG/2ML VIAL IV SCH (21:00)
[2022-07-29] MEDS ORDERED: INSULIN LISPRO 100 UNIT/1 ML 3ML VIAL SQ SCH (21:30)
[2022-07-29] MEDS ORDERED: AMLODIPINE BESYLATE 5 MG TAB PO ONE (21:30)
[2022-07-29] MEDS ORDERED: PIRFENIDONE PO (22:26)
[2022-07-29] MEDS ORDERED: ALBUTEROL SULF 0.083% NEB SOLN 3 ML NEB NEB SCH (23:00)
[2022-07-30] VITALS (7 sets, daily range): BP systolic 100–137; BP diastolic 48–76
[2022-07-30] MEDS ORDERED: LOSARTAN POTASS25 MG PO (03:30)
[2022-07-30] MEDS ORDERED: IMURAN50 MG PO (03:34)
[2022-07-30] MEDS ORDERED: AMLODIPINE BESYL5 MG PO (03:35)
[2022-07-30] MEDS ORDERED: ARICEPT5 MG PO (04:01)
[2022-07-30] MEDS ORDERED: PANTOPRAZOLE SO40 MG PO (04:03)
[2022-07-30] MEDS ORDERED: JANUVIA100 MG PO (04:04)
[2022-07-30] MEDS ORDERED: BENZONATATE100 MG PO (04:05)
[2022-07-30] MEDS ORDERED: SYMBICORT 80-10.2 GM INH (04:06)
[2022-07-30] MEDS ORDERED: FLONASE ALLERG9.9 ML INH (04:07)
[2022-07-30] MEDS ORDERED: PREDNISONE5 MG PO (04:09)
[2022-07-30] MEDS ORDERED: MAGNESIUM OXID400 MG PO (04:11)
[2022-07-30] MEDS ORDERED: ALBUTEROL0.63 MG/3 NEB (04:12)
[2022-07-30] MEDS: MAGNESIUM OXIDE 400 MG TAB PO SCH ×2 (04:26→08:42)
[2022-07-30 05:01] LABS: BASOPHILS % 0.1 % (0.0-1.0); HEMATOCRIT 27.4 % (34.2-44.1); HEMOGLOBIN 8.7 g/dL (12.0-16.0); LYMPHOCYTES # (AUTO) 0.6 (1.0-3.2); LYMPHOCYTES % 8.9 % (18.0-39.1); MEAN CORPUSCULAR HEMOGLOBIN 30.4 pg (28-32); MEAN CORPUSCULAR HGB CONC 31.8 g/dL (31-35); MEAN CORPUSCULAR VOLUME 95.8 fL (81-99); MONOCYTES # (AUTO) 0.2 (0.2-0.8); MONOCYTES % 2.5 % (4.4-11.3); NEUTROPHILS # (AUTO) 6.3 (2.1-6.9); NEUTROPHILS % 88.2 % (38.7-80.0); PLATELET COUNT 241 x10e3/uL (140-360); RED BLOOD COUNT 2.86 x10e6/uL (3.6-5.1); RED CELL DISTRIBUTION WIDTH 14.3 % (11.7-14.4)
[2022-07-30 05:19] LABS: ALANINE AMINOTRANSFERASE < 6 IU/L (0-55); ALBUMIN 2.2 g/dL (3.5-5.0); ALBUMIN/GLOBULIN RATIO 0.5 (0.8-2.0); ALKALINE PHOSPHATASE 48 IU/L (40-150); ANION GAP 13.8 mmol/L (8-16); BLOOD UREA NITROGEN 22 mg/dL (7-26); BUN/CREATININE RATIO 29 (6-25); CALCIUM 8.3 mg/dL (8.4-10.2); CARBON DIOXIDE 22 mmol/L (22-29); CHLORIDE 103 mmol/L (98-107); CHOL/HDL RATIO 4.5 (3.0-3.6); CHOLESTEROL 126 MD/DL (0-199); CREATININE, SERUM 0.75 mg/dL (0.57-1.11); GLUCOSE 177 mg/dL (74-118); HDL CHOLESTEROL 28 MG/DL (40-60); LDL CHOLESTEROL 84 MG/DL (60-130); POTASSIUM 4.8 mmol/L (3.5-5.1); SODIUM 134 mmol/L (136-145); TRIGLYCERIDES 71 MG/DL (0-149)
[2022-07-30 05:30] LABS: CREATINE KINASE 52 IU/L (29-168)
[2022-07-30] MEDS: BUDESONIDE/FORMOTEROL FUMARATE 80/4.5MCG 6.9 GM INH AEROSOL IH SCH ×2 (06:59→10:24)
[2022-07-30] MEDS ORDERED: ALBUTEROL/IPRATROPIUM 3 ML NEB ONE (07:56)
[2022-07-30] MEDS ORDERED: SODIUM CHLORIDE 0.9% 250ML 250 ML ONE (08:14)
[2022-07-30] MEDS: PANTOPRAZOLE SOD 40 MG TABEC PO SCH (08:41)
[2022-07-30] MEDS: CEFEPIME 2 GM in SODIUM CHLORIDE 0.9% 100 ML IV SCH ×2 (08:41→20:36)
[2022-07-30] MEDS: PREDNISONE 20 MG TAB PO SCH (08:41)
[2022-07-30] MEDS ORDERED: LOSARTAN POTASSIUM 100 MG TAB PO SCH (09:00)
[2022-07-30] MEDS: FLUTICASONE PROPIONATE NASAL SPRAY NS SCH (09:00)
[2022-07-30] MEDS: SITAGLIPTIN 100 MG TAB PO SCH (09:00)
[2022-07-30] MEDS: ALBUTEROL/IPRATROPIUM 3 ML NEB NEB SCH ×5 (09:00→23:50)
[2022-07-30] MEDS: BENZONATATE 100 MG CAP PO PRN (09:24)
[2022-07-30] MEDS: AZATHIOPRINE 50 MG TAB PO SCH (09:56)
[2022-07-30 14:16] LABS: CREATINE KINASE 46 IU/L (29-168)
[2022-07-30] MEDS: PIRFENIDONE 801 MG PO SCH (16:40)
[2022-07-30] MEDS: INSULIN LISPRO 100 UNIT/1 ML 3ML VIAL SQ SCH ×2 (18:12→22:38)
[2022-07-30] MEDS ORDERED: DEXTROSE 50% SYRINGE 50 ML IV PRN (18:15)
[2022-07-30] MEDS: DONEPEZIL HCL 5 MG TAB PO SCH (20:36)
[2022-07-31] VITALS (7 sets, daily range): BP systolic 105–138; BP diastolic 49–63
[2022-07-31 06:14] LABS: HEMATOCRIT 27.2 % (34.2-44.1); HEMOGLOBIN 8.7 g/dL (12.0-16.0); LYMPHOCYTES # (AUTO) 1.2 (1.0-3.2); LYMPHOCYTES % 14.4 % (18.0-39.1); MEAN CORPUSCULAR HEMOGLOBIN 30.7 pg (28-32); MEAN CORPUSCULAR VOLUME 96.1 fL (81-99); MONOCYTES # (AUTO) 0.6 (0.2-0.8); MONOCYTES % 6.9 % (4.4-11.3); NEUTROPHILS # (AUTO) 6.6 (2.1-6.9); NEUTROPHILS % 78.2 % (38.7-80.0); PLATELET COUNT 258 x10e3/uL (140-360); RED BLOOD COUNT 2.83 x10e6/uL (3.6-5.1); RED CELL DISTRIBUTION WIDTH 14.4 % (11.7-14.4)
[2022-07-31] MEDS: ALBUTEROL/IPRATROPIUM 3 ML NEB NEB SCH ×3 (06:40→18:55)
[2022-07-31] MEDS: BUDESONIDE/FORMOTEROL FUMARATE 80/4.5MCG 6.9 GM INH AEROSOL IH SCH ×2 (06:40→18:55)
[2022-07-31 06:48] LABS: ANION GAP 15.9 mmol/L (8-16); CALCIUM 8.1 mg/dL (8.4-10.2); CREATININE, SERUM 0.73 mg/dL (0.57-1.11); POTASSIUM 3.9 mmol/L (3.5-5.1)
[2022-07-31] MEDS: PREDNISONE 20 MG TAB PO SCH (09:11)
[2022-07-31] MEDS: AZATHIOPRINE 50 MG TAB PO SCH (09:11)
[2022-07-31] MEDS: PANTOPRAZOLE SOD 40 MG TABEC PO SCH (09:11)
[2022-07-31] MEDS: FLUTICASONE PROPIONATE NASAL SPRAY NS SCH (09:12)
[2022-07-31] MEDS: SITAGLIPTIN 100 MG TAB PO SCH (09:12)
[2022-07-31] MEDS: CEFEPIME 2 GM in SODIUM CHLORIDE 0.9% 100 ML IV SCH ×2 (09:12→21:08)
[2022-07-31] MEDS: INSULIN LISPRO 100 UNIT/1 ML 3ML VIAL SQ SCH ×3 (09:13→17:09)
[2022-07-31] MEDS: BENZONATATE 100 MG CAP PO PRN (09:15)
[2022-07-31] MEDS: PIRFENIDONE 801 MG PO SCH ×3 (09:17→17:02)
[2022-07-31] MEDS ORDERED: ACETAMINOPHEN 325 MG TAB PO PRN (09:30)
[2022-07-31] MEDS ORDERED: FUROSEMIDE INJ 10 MG/ML 4 ML VIAL IV ONE (10:00)
[2022-07-31] MEDS: GUAIFENESIN 600 MG TAB PO SCH ×3 (10:31→17:02)
[2022-07-31] MEDS ORDERED: ENOXAPARIN SOD INJ 40 MG/0.4 ML SYR SC SCH ×2 (12:30→17:00)
[2022-07-31] MEDS: DONEPEZIL HCL 5 MG TAB PO SCH (21:07)
[2022-08-01] VITALS: BP 145/65
[2022-08-01] MEDS: GUAIFENESIN 600 MG TAB PO SCH ×2 (00:23→06:49)
[2022-08-01] MEDS: INSULIN LISPRO 100 UNIT/1 ML 3ML VIAL SQ SCH ×2 (00:28→07:30)
[2022-08-01] MEDS: ALBUTEROL/IPRATROPIUM 3 ML NEB NEB SCH ×2 (02:15→06:45)
[2022-08-01 04:00] VITALS: BP 131/67
[2022-08-01] MEDS: BUDESONIDE/FORMOTEROL FUMARATE 80/4.5MCG 6.9 GM INH AEROSOL IH SCH (06:45)
[2022-08-01] MEDS ORDERED: ONDANSETRON HCL 4 MG ORAL DISINTEGRATING TAB PO PRN (07:00)
[2022-08-01 07:59] VITALS: BP 131/67
[2022-08-01 08:03] LABS: BASOPHILS % 0.1 % (0.0-1.0); EOSINOPHILS % 0.3 % (0.0-6.0); HEMATOCRIT 29.8 % (34.2-44.1); HEMOGLOBIN 9.4 g/dL (12.0-16.0); LYMPHOCYTES # (AUTO) 1.7 (1.0-3.2); LYMPHOCYTES % 25.4 % (18.0-39.1); MEAN CORPUSCULAR HEMOGLOBIN 30.4 pg (28-32); MEAN CORPUSCULAR HGB CONC 31.5 g/dL (31-35); MEAN CORPUSCULAR VOLUME 96.4 fL (81-99); MONOCYTES # (AUTO) 0.6 (0.2-0.8); MONOCYTES % 8.5 % (4.4-11.3); NEUTROPHILS # (AUTO) 4.3 (2.1-6.9); NEUTROPHILS % 64.7 % (38.7-80.0); PLATELET COUNT 284 x10e3/uL (140-360); RED BLOOD COUNT 3.09 x10e6/uL (3.6-5.1); RED CELL DISTRIBUTION WIDTH 14.5 % (11.7-14.4)
[2022-08-01 08:29] LABS: ALANINE AMINOTRANSFERASE < 6 IU/L (0-55); ALBUMIN 2.3 g/dL (3.5-5.0); ALBUMIN/GLOBULIN RATIO 0.6 (0.8-2.0); ALKALINE PHOSPHATASE 43 IU/L (40-150); ANION GAP 15.6 mmol/L (8-16); BLOOD UREA NITROGEN 19 mg/dL (7-26); BUN/CREATININE RATIO 26 (6-25); CALCIUM 8.7 mg/dL (8.4-10.2); CARBON DIOXIDE 23 mmol/L (22-29); CHLORIDE 98 mmol/L (98-107); CREATININE, SERUM 0.74 mg/dL (0.57-1.11); GLUCOSE 107 mg/dL (74-118); POTASSIUM 3.6 mmol/L (3.5-5.1); SODIUM 133 mmol/L (136-145)
[2022-08-01 08:42] VITALS: BP 136/63
[2022-08-01] MEDS: PANTOPRAZOLE SOD 40 MG TABEC PO SCH (08:53)
[2022-08-01] MEDS: PREDNISONE 20 MG TAB PO SCH (08:54)
[2022-08-01] MEDS: SITAGLIPTIN 100 MG TAB PO SCH (08:54)
[2022-08-01] MEDS: CEFEPIME 2 GM in SODIUM CHLORIDE 0.9% 100 ML IV SCH (08:54)
[2022-08-01] MEDS: AZATHIOPRINE 50 MG TAB PO SCH (08:55)
[2022-08-01] MEDS: FLUTICASONE PROPIONATE NASAL SPRAY NS SCH (08:56)
[2022-08-01] MEDS ORDERED: AZITHROMYCIN 250 MG TAB PO SCH (09:00)
[2022-08-01] MEDS: PIRFENIDONE 801 MG PO SCH (09:06)
[2022-08-01 09:19] LABS: EOSINOPHILS % (MANUAL) 2 % (0-7); LYMPHOCYTES % (MANUAL) 23 % (19-48); MONOCYTES % (MANUAL) 6 % (3.4-9.0); MYELOCYTES % (MANUAL) 1 % (0-0); NEUTROPHILS % (MANUAL) 66 % (40-74); PLATELET ESTIMATE ADEQUATE; PLATELET MORPHOLOGY COMMENT NORMAL; RBC MORPHOLOGY COMMENT NORMAL
== END 2022-08-01 10:30 | disposition home or self-care (01) | DRG 871 ==
LOC: ER 11:23 → ERHOLD 14:34 → MERGE 14:34 → MED/SURG2 17:44
PROVIDERS: ADMIT Internal Medicine; ATTEND Internal Medicine
DX: A41.9 Sepsis, unspecified organism (principal); I50.33 Acute on chronic diastolic (congestive) heart failure; J15.6 Pneumonia due to other Gram-negative bacteria; N39.0 Urinary tract infection, site not specified; M34.81 Systemic sclerosis with lung involvement; I13.0 Hypertensive heart and chronic kidney disease with heart failure and stage 1 through stage 4 chronic kidney disease, or unspecified chronic kidney disease; E44.0 Moderate protein-calorie malnutrition; J44.0 Chronic obstructive pulmonary disease with (acute) lower respiratory infection; J44.1 Chronic obstructive pulmonary disease with (acute) exacerbation; J84.178 Other interstitial pulmonary diseases with fibrosis in diseases classified elsewhere; F03.90 Unspecified dementia, unspecified severity, without behavioral disturbance, psychotic disturbance, mood disturbance, and anxiety; E11.42 Type 2 diabetes mellitus with diabetic polyneuropathy; N18.1 Chronic kidney disease, stage 1; M10.9 Gout, unspecified; E55.9 Vitamin D deficiency, unspecified; E03.9 Hypothyroidism, unspecified; E11.22 Type 2 diabetes mellitus with diabetic chronic kidney disease; Z90.49 Acquired absence of other specified parts of digestive tract; Z88.1 Allergy status to other antibiotic agents; Z20.822 Contact with and (suspected) exposure to COVID-19; Z83.3 Family history of diabetes mellitus; Z87.891 Personal history of nicotine dependence; D63.8 Anemia in other chronic diseases classified elsewhere; N28.9 Disorder of kidney and ureter, unspecified; Z68.24 Body mass index [BMI] 24.0-24.9, adult; R65.20 Severe sepsis without septic shock
CPT/HCPCS: 36415; 71045; 71250; 80048; 80053; 80061; 81001; 82550; 82553; 82948; 83605; 83735; 83880; 84443; 84484; 85025; 85610; 85730; 87040; 87086; 93005; 94640; 94799; 99284; J0456; J0692; J0696; J1650; J1817; J1940; J2930; J7030; J7050; J7512

== ENCOUNTER 2023-04-10 17:46 | Inpatient (IN) | payer MEDICARE ==
[~2023-04-10] VITALS: Ht 160 cm; Wt 63.5 kg
[~2023-04-10 17:46] MED LIST changes: +ARICEPT5 MG PO; +BENZONATATE100 MG PO; +IMURAN50 MG PO; +JANUVIA100 MG PO; +MAGNESIUM OXID400 MG PO; +PIRFENIDONE PO; +SYMBICORT 80-10.2 GM INH
[2023-04-10] MEDS ORDERED: ALBUTEROL/IPRATROPIUM 3 ML NEB ONE (17:58)
[2023-04-10 18:00] VITALS: PULSE 83; RESP 40; O2SAT 100
[2023-04-10] MEDS ORDERED: ALBUTEROL/IPRATROPIUM 3 ML NEB NEB ONE (18:00)
[2023-04-10] MEDS ORDERED: METHYLPREDNISOLONE SOD SUCC 125 MG/2ML VIAL IV ONE (18:00)
[2023-04-10] MEDS ORDERED: DEXAMETHASONE SOD PHOS 10 MG/1 ML VIAL ONE (18:09)
[2023-04-10] MEDS ORDERED: DEXAMETHASONE SOD PHOS INJ 4 MG/ML SDV IV ONE (18:15)
[2023-04-10] MEDS ORDERED: DEXAMETHASONE SOD PHOS 10 MG/1 ML VIAL IV ONE (18:15)
[2023-04-10 18:17] LABS: BASOPHILS % 0.5 % (0.0-1.0); EOSINOPHILS # (AUTO) 0.1 (0.0-0.4); EOSINOPHILS % 2.1 % (0.0-6.0); HEMATOCRIT 39.3 % (34.2-44.1); HEMOGLOBIN 12.8 g/dL (12.0-16.0); LYMPHOCYTES # (AUTO) 1.9 (1.0-3.2); LYMPHOCYTES % 29.3 % (18.0-39.1); MEAN CORPUSCULAR HEMOGLOBIN 31.1 pg (28-32); MEAN CORPUSCULAR HGB CONC 32.6 g/dL (31-35); MEAN CORPUSCULAR VOLUME 95.6 fL (81-99); MONOCYTES # (AUTO) 0.7 (0.2-0.8); MONOCYTES % 11.7 % (4.4-11.3); NEUTROPHILS # (AUTO) 3.6 (2.1-6.9); NEUTROPHILS % 56.1 % (38.7-80.0); PLATELET COUNT 179 x10e3/uL (140-360); RED BLOOD COUNT 4.11 x10e6/uL (3.6-5.1); RED CELL DISTRIBUTION WIDTH 13.4 % (11.7-14.4)
[2023-04-10 18:36] LABS: ANION GAP 17.9 mmol/L (8-16); BLOOD UREA NITROGEN 19 mg/dL (7-26); BUN/CREATININE RATIO 19 (6-25); CALCIUM 9.2 mg/dL (8.4-10.2); CARBON DIOXIDE 21 mmol/L (22-29); CHLORIDE 96 mmol/L (98-107); CREATINE KINASE 127 IU/L (29-168); CREATININE, SERUM 0.98 mg/dL (0.57-1.11); GLUCOSE 161 mg/dL (74-118); MAGNESIUM 1.6 MG/DL (1.3-2.1); POTASSIUM 3.9 mmol/L (3.5-5.1); SODIUM 131 mmol/L (136-145)
[2023-04-10] MEDS ORDERED: CEFTRIAXONE 1 GM VIAL IM ONE (19:45)
[2023-04-10] MEDS ORDERED: ACETAMINOPHEN 325 MG TAB PO ONE (19:45)
[2023-04-10] MEDS ORDERED: ACETAMINOPHEN 325 MG TAB PO PRN (20:00)
[2023-04-10 20:23] LABS: INR 0.99; PROTHROMBIN TIME 13.6 seconds (11.9-14.5)
[2023-04-10 20:24] LABS: PARTIAL THROMBOPLASTIN TIME 28.1 seconds (23.8-35.5)
[2023-04-10] MEDS ORDERED: ONDANSETRON HCL INJ 2MG/ML 2ML 2 MG/ML VIAL IV PRN (21:45)
[2023-04-10] MEDS ORDERED: DOCUSATE SODIUM 100 MG CAP PO PRN (21:45)
[2023-04-10] MEDS ORDERED: HYDRALAZINE HCL 20 MG/ML VIAL IV PRN (21:45)
[2023-04-10] MEDS ORDERED: ALBUTEROL SULF 0.083% NEB SOLN 3 ML NEB NEB PRN (21:45)
[2023-04-10] MEDS ORDERED: MAGNESIUM/ALUMINUM/SIMETHICONE 30 ML UDC PO PRN (21:45)
[2023-04-10] MEDS ORDERED: MELATONIN 3 MG TAB PO PRN (21:45)
[2023-04-10 22:00] VITALS: PULSE 70; RESP 25; O2SAT 100
[2023-04-10] MEDS ORDERED: DEXTROSE 50% SYRINGE 50 ML IV PRN (22:00)
[2023-04-10] MEDS: Doxycycline IV 100 MG in SODIUM CHLORIDE 0.9% 100 ML IV SCH (22:36)
[2023-04-10] MEDS ORDERED: Vancomycin IV 1 GM in SODIUM CHLORIDE 0.9% 250ML 250 ML IV ONE (23:00)
[2023-04-10 23:02] LABS: CLARITY,URINE CLEAR (CLEAR); COLOR,URINE AMBER (YELLOW); KETONES,URINE 1+ (NEGATIVE); LEUKOCYTE ESTERASE ,URINE TRACE (NEGATIVE); NITRITE,URINE NEGATIVE (NEGATIVE); PROTEIN,URINE DIPSTICK 2+ (NEGATIVE); URINE UROBILINOGEN 0.2 mg/dL (0.2 - 1)
[2023-04-10 23:07] LABS: AMORPHOUS SEDIMENT,URINE FEW (FEW); BACTERIA,URINE MODERATE /HPF; EPITHELIAL CELLS,URINE MODERATE /LPF; RBC,URINE 0-5 /HPF (0-5)
[2023-04-11] VITALS (44 sets, daily range): BP systolic 108–157; BP diastolic 53–104; PULSE 55–76; RESP 14–32; TEMP 97.3–99.2; O2SAT 93–100
[2023-04-11] MEDS ORDERED: ALBUTEROL SULF 0.083% NEB SOLN 3 ML NEB NEB PRN
[2023-04-11] MEDS ORDERED: DIPHENHYDRAMINE HCL INJ 50 MG/ML VIAL IV PRN
[2023-04-11] MEDS ORDERED: ACETAMINOPHEN 325 MG TAB PO PRN
[2023-04-11] MEDS ORDERED: POTASSIUM CHLORIDE 20 MEQ TAB CR PO PRN
[2023-04-11] MEDS ORDERED: ZOLPIDEM TARTRATE 5 MG TAB PO PRN
[2023-04-11] MEDS ORDERED: IPRATROPIUM BROMIDE 0.02% 2.5 ML NEB NEB PRN
[2023-04-11] MEDS ORDERED: DOCUSATE SODIUM 100 MG CAP PO PRN
[2023-04-11] MEDS ORDERED: HYDROCODONE/APAP 5MG-325MG TAB PO PRN
[2023-04-11] MEDS ORDERED: Morphine 2mg Syringe 2 MG/ML SYR IV PRN
[2023-04-11] MEDS: IPRATROPIUM BROMIDE 0.02% 2.5 ML NEB NEB SCH ×4 (02:20→19:11)
[2023-04-11 02:41] LABS: BASOPHILS % 0.3 % (0.0-1.0); HEMOGLOBIN 11.2 g/dL (12.0-16.0); LYMPHOCYTES # (AUTO) 0.7 (1.0-3.2); LYMPHOCYTES % 24.1 % (18.0-39.1); MEAN CORPUSCULAR HEMOGLOBIN 31.2 pg (28-32); MEAN CORPUSCULAR HGB CONC 33.9 g/dL (31-35); MEAN CORPUSCULAR VOLUME 91.9 fL (81-99); MONOCYTES # (AUTO) 0.1 (0.2-0.8); NEUTROPHILS # (AUTO) 2.2 (2.1-6.9); NEUTROPHILS % 71.9 % (38.7-80.0); PLATELET COUNT 175 x10e3/uL (140-360); RED BLOOD COUNT 3.59 x10e6/uL (3.6-5.1)
[2023-04-11 03:02] LABS: ALBUMIN 2.8 g/dL (3.5-5.0); ALBUMIN/GLOBULIN RATIO 0.7 (0.8-2.0); ALKALINE PHOSPHATASE 54 IU/L (40-150); ANION GAP 15.3 mmol/L (8-16); BLOOD UREA NITROGEN 22 mg/dL (7-26); BUN/CREATININE RATIO 23 (6-25); CALCIUM 8.5 mg/dL (8.4-10.2); CARBON DIOXIDE 22 mmol/L (22-29); CHLORIDE 97 mmol/L (98-107); CREATININE, SERUM 0.95 mg/dL (0.57-1.11); GLUCOSE 298 mg/dL (74-118); LIPASE 5 U/L (8-78); MAGNESIUM 1.5 MG/DL (1.3-2.1); PHOSPHORUS 4.5 MG/DL (2.3-4.7); POTASSIUM 4.3 mmol/L (3.5-5.1); SODIUM 130 mmol/L (136-145)
[2023-04-11 03:04] LABS: ALANINE AMINOTRANSFERASE < 6 IU/L (0-55)
[2023-04-11 03:22] LABS: THYROID STIMULATING HORMONE 1.161 uIU/mL (0.350-4.940)
[2023-04-11] MEDS: PIRFENIDONE 801 MG PO SCH ×3 (08:00→17:00)
[2023-04-11] MEDS: INSULIN REGULAR, HUMAN 100 UNIT/1 ML SQ SCH ×4 (08:33→21:00)
[2023-04-11] MEDS: Doxycycline IV 100 MG in SODIUM CHLORIDE 0.9% 100 ML IV SCH ×2 (08:35→21:37)
[2023-04-11] MEDS: MAGNESIUM OXIDE 400 MG TAB PO SCH (08:36)
[2023-04-11] MEDS: FLUTICASONE PROPIONATE NASAL SPRAY NS SCH ×2 (08:36→18:05)
[2023-04-11] MEDS: AMLODIPINE BESYLATE 5 MG TAB PO SCH (08:37)
[2023-04-11] MEDS: BENZONATATE 100 MG CAP PO SCH ×3 (08:37→21:40)
[2023-04-11] MEDS: MULTIVITAMINS/MINERALS TAB PO SCH (08:37)
[2023-04-11] MEDS: PREDNISONE 5 MG TAB PO SCH (08:37)
[2023-04-11] MEDS ORDERED: PANTOPRAZOLE SOD 40 MG TABEC PO SCH (09:00)
[2023-04-11] MEDS: ENOXAPARIN SOD INJ 40 MG/0.4 ML SYR SC SCH (18:04)
[2023-04-11] MEDS ORDERED: Morphine 4mg INJECTION 4 MG/ML INJ IV PRN (21:00)
[2023-04-11] MEDS ORDERED: SCOPOLAMINE 1 MG PATCH TOP SCH (21:00)
[2023-04-11] MEDS ORDERED: LORAZEPAM INJ 2 MG/ML VIAL IV PRN (21:00)
[2023-04-11] MEDS ORDERED: ONDANSETRON HCL INJ 2MG/ML 2ML 2 MG/ML VIAL IV PRN ×2 (21:00)
[2023-04-11] MEDS ORDERED: BISACODYL 10 MG SUPP PR PRN (21:00)
[2023-04-11] MEDS ORDERED: Morphine 4mg INJECTION 4 MG/ML INJ IV SCH (21:00)
[2023-04-11] MEDS ORDERED: ACETAMINOPHEN 325 MG SUPP PR PRN (21:00)
[2023-04-11] MEDS ORDERED: LORAZEPAM INJ 2 MG/ML VIAL IV SCH (21:00)
[2023-04-11] MEDS: LOSARTAN POTASSIUM 25 MG TAB PO SCH (21:39)
[2023-04-11] MEDS: METOPROLOL SUCCINATE 50 MG TAB XL PO SCH (21:40)
[2023-04-12] VITALS (12 sets, daily range): BP systolic 125–148; BP diastolic 60–83; PULSE 51–108; RESP 14–22; TEMP 97.4–98.2; O2SAT 89–100
[2023-04-12] MEDS: GUAIFENESIN/DEXTROMETHORPHAN LIQD 5 ML UDC PO PRN (00:42)
[2023-04-12] MEDS: IPRATROPIUM BROMIDE 0.02% 2.5 ML NEB NEB SCH ×4 (01:55→19:50)
[2023-04-12 07:24] LABS: BASOPHILS % 0.3 % (0.0-1.0); EOSINOPHILS % 0.3 % (0.0-6.0); HEMATOCRIT 36.9 % (34.2-44.1); HEMOGLOBIN 12.1 g/dL (12.0-16.0); LYMPHOCYTES # (AUTO) 1.8 (1.0-3.2); LYMPHOCYTES % 26.7 % (18.0-39.1); MEAN CORPUSCULAR HEMOGLOBIN 31.6 pg (28-32); MEAN CORPUSCULAR HGB CONC 32.8 g/dL (31-35); MONOCYTES # (AUTO) 0.6 (0.2-0.8); MONOCYTES % 8.4 % (4.4-11.3); NEUTROPHILS # (AUTO) 4.3 (2.1-6.9); NEUTROPHILS % 63.9 % (38.7-80.0); PLATELET COUNT 204 x10e3/uL (140-360); RED BLOOD COUNT 3.83 x10e6/uL (3.6-5.1); RED CELL DISTRIBUTION WIDTH 12.9 % (11.7-14.4)
[2023-04-12 07:25] LABS: MEAN CORPUSCULAR VOLUME 96.3 fL (81-99)
[2023-04-12] MEDS: INSULIN REGULAR, HUMAN 100 UNIT/1 ML SQ SCH ×4 (07:30→21:00)
[2023-04-12 07:49] LABS: ALBUMIN 2.8 g/dL (3.5-5.0); ALBUMIN/GLOBULIN RATIO 0.7 (0.8-2.0); ANION GAP 13.2 mmol/L (8-16); CALCIUM 8.8 mg/dL (8.4-10.2); CREATININE, SERUM 0.86 mg/dL (0.57-1.11); POTASSIUM 4.2 mmol/L (3.5-5.1)
[2023-04-12] MEDS: PIRFENIDONE 801 MG PO SCH ×3 (08:00→17:00)
[2023-04-12] MEDS: FLUTICASONE PROPIONATE NASAL SPRAY NS SCH ×2 (09:00→17:44)
[2023-04-12] MEDS: Doxycycline IV 100 MG in SODIUM CHLORIDE 0.9% 100 ML IV SCH ×2 (09:46→21:07)
[2023-04-12] MEDS: MULTIVITAMINS/MINERALS TAB PO SCH (09:47)
[2023-04-12] MEDS: AMLODIPINE BESYLATE 5 MG TAB PO SCH (09:47)
[2023-04-12] MEDS: BENZONATATE 100 MG CAP PO SCH ×4 (09:47→21:07)
[2023-04-12] MEDS: PREDNISONE 5 MG TAB PO SCH (09:47)
[2023-04-12] MEDS: MAGNESIUM OXIDE 400 MG TAB PO SCH (09:47)
[2023-04-12 10:28] LABS: EOSINOPHILS % (MANUAL) 1 % (0-7); LYMPHOCYTES % (MANUAL) 33 % (19-48); MONOCYTES % (MANUAL) 6 % (3.4-9.0); NEUTROPHILS % (MANUAL) 60 % (40-74); PLATELET ESTIMATE ADEQUATE; PLATELET MORPHOLOGY COMMENT NORMAL; RBC MORPHOLOGY COMMENT NORMAL
[2023-04-12] MEDS: ENOXAPARIN SOD INJ 40 MG/0.4 ML SYR SC SCH (17:45)
[2023-04-12] MEDS ORDERED: LORAZEPAM INJ 2 MG/ML VIAL IV PRN (20:30)
[2023-04-12] MEDS: METOPROLOL SUCCINATE 50 MG TAB XL PO SCH ×2 (21:00→21:11)
[2023-04-12] MEDS: LOSARTAN POTASSIUM 25 MG TAB PO SCH ×2 (21:00→21:08)
[2023-04-12] MEDS ORDERED: LORAZEPAM INJ 2 MG/ML VIAL IM PRN (21:30)
[2023-04-13] VITALS (16 sets, daily range): BP systolic 101–159; BP diastolic 48–92; PULSE 66–114; RESP 15–21; TEMP 97.5–98.4; O2SAT 97–100
[2023-04-13] MEDS ORDERED: ZIPRASIDONE 20 MG VIAL IM PRN
[2023-04-13] MEDS: IPRATROPIUM BROMIDE 0.02% 2.5 ML NEB NEB SCH ×4 (00:50→18:30)
[2023-04-13 06:30] LABS: BASOPHILS % 0.5 % (0.0-1.0); EOSINOPHILS % 0.1 % (0.0-6.0); HEMATOCRIT 35.7 % (34.2-44.1); HEMOGLOBIN 11.4 g/dL (12.0-16.0); LYMPHOCYTES # (AUTO) 1.6 (1.0-3.2); LYMPHOCYTES % 18.7 % (18.0-39.1); MEAN CORPUSCULAR HGB CONC 31.9 g/dL (31-35); MONOCYTES # (AUTO) 0.7 (0.2-0.8); MONOCYTES % 7.8 % (4.4-11.3); NEUTROPHILS # (AUTO) 6.2 (2.1-6.9); NEUTROPHILS % 72.7 % (38.7-80.0); PLATELET COUNT 209 x10e3/uL (140-360); RED BLOOD COUNT 3.68 x10e6/uL (3.6-5.1); RED CELL DISTRIBUTION WIDTH 13.1 % (11.7-14.4)
[2023-04-13 06:48] LABS: ALBUMIN 2.9 g/dL (3.5-5.0); ALBUMIN/GLOBULIN RATIO 0.7 (0.8-2.0); ANION GAP 15.7 mmol/L (8-16); CALCIUM 8.7 mg/dL (8.4-10.2); CREATININE, SERUM 0.78 mg/dL (0.57-1.11); POTASSIUM 3.7 mmol/L (3.5-5.1)
[2023-04-13] MEDS: INSULIN REGULAR, HUMAN 100 UNIT/1 ML SQ SCH ×4 (07:30→21:00)
[2023-04-13] MEDS: PIRFENIDONE 801 MG PO SCH ×3 (08:00→17:44)
[2023-04-13] MEDS ORDERED: ONDANSETRON HCL 4 MG ORAL DISINTEGRATING TAB PO PRN (08:45)
[2023-04-13] MEDS: MAGNESIUM OXIDE 400 MG TAB PO SCH (09:00)
[2023-04-13] MEDS: PREDNISONE 5 MG TAB PO SCH (09:00)
[2023-04-13] MEDS: MULTIVITAMINS/MINERALS TAB PO SCH (09:00)
[2023-04-13] MEDS: BENZONATATE 100 MG CAP PO SCH ×3 (09:00→21:03)
[2023-04-13] MEDS: FLUTICASONE PROPIONATE NASAL SPRAY NS SCH ×2 (09:00→21:01)
[2023-04-13] MEDS: AMLODIPINE BESYLATE 5 MG TAB PO SCH (09:00)
[2023-04-13] MEDS: Doxycycline IV 100 MG in SODIUM CHLORIDE 0.9% 100 ML IV SCH ×2 (10:30→21:04)
[2023-04-13] MEDS: ENOXAPARIN SOD INJ 40 MG/0.4 ML SYR SC SCH (17:45)
[2023-04-13] MEDS: METOPROLOL SUCCINATE 50 MG TAB XL PO SCH (21:02)
[2023-04-13] MEDS: LOSARTAN POTASSIUM 25 MG TAB PO SCH (21:03)
[2023-04-14] VITALS (9 sets, daily range): BP systolic 82–120; BP diastolic 54–71; PULSE 63–96; RESP 16–20; TEMP 97.7–98.8; O2SAT 95–100
[2023-04-14] MEDS: IPRATROPIUM BROMIDE 0.02% 2.5 ML NEB NEB SCH ×3 (00:30→13:40)
[2023-04-14] MEDS: MULTIVITAMINS/MINERALS TAB PO SCH (08:35)
[2023-04-14] MEDS: FLUTICASONE PROPIONATE NASAL SPRAY NS SCH (08:35)
[2023-04-14] MEDS: MAGNESIUM OXIDE 400 MG TAB PO SCH (08:35)
[2023-04-14] MEDS: BENZONATATE 100 MG CAP PO SCH (08:35)
[2023-04-14] MEDS: AMLODIPINE BESYLATE 5 MG TAB PO SCH (08:36)
[2023-04-14] MEDS: INSULIN REGULAR, HUMAN 100 UNIT/1 ML SQ SCH ×2 (08:37→11:45)
[2023-04-14] MEDS: PREDNISONE 5 MG TAB PO SCH (08:41)
[2023-04-14] MEDS: Doxycycline IV 100 MG in SODIUM CHLORIDE 0.9% 100 ML IV SCH (08:42)
[2023-04-14] MEDS: PIRFENIDONE 801 MG PO SCH ×2 (08:43→12:06)
[2023-04-14] MEDS: GUAIFENESIN/DEXTROMETHORPHAN LIQD 5 ML UDC PO PRN (12:06)
[2023-04-14] MEDS ORDERED: PANTOPRAZOLE SOD 40 MG TABEC PO SCH (16:30)
[2023-04-14] MEDS ORDERED: DOXYCYCLINE HYCLATE TABLET 100 MG TAB PO SCH (21:00)
== END 2023-04-14 14:52 | disposition home or self-care (01) | DRG 193 ==
LOC: ER 17:54 → ERHOLD 19:23 → MED/SURG3 23:58 → ICU 04-11 11:29 → MED/SURG2 04-12 17:07
PROVIDERS: ADMIT Internal Medicine; ATTEND Internal Medicine
PROC: 3E0F7SF Introduction of Other Gas into Respiratory Tract, Via Natural or Artificial Opening (ICD-10-PCS; principal; 2023-04-10)
DX: J18.9 Pneumonia, unspecified organism (principal); G93.41 Metabolic encephalopathy; J96.01 Acute respiratory failure with hypoxia; I50.32 Chronic diastolic (congestive) heart failure; E44.0 Moderate protein-calorie malnutrition; J84.10 Pulmonary fibrosis, unspecified; I11.0 Hypertensive heart disease with heart failure; K22.2 Esophageal obstruction; E11.65 Type 2 diabetes mellitus with hyperglycemia; L94.0 Localized scleroderma [morphea]; R13.12 Dysphagia, oropharyngeal phase; F03.90 Unspecified dementia, unspecified severity, without behavioral disturbance, psychotic disturbance, mood disturbance, and anxiety; J32.0 Chronic maxillary sinusitis; I25.10 Atherosclerotic heart disease of native coronary artery without angina pectoris; I27.21 Secondary pulmonary arterial hypertension; E03.9 Hypothyroidism, unspecified; R53.1 Weakness; E11.42 Type 2 diabetes mellitus with diabetic polyneuropathy; M10.9 Gout, unspecified; Z87.891 Personal history of nicotine dependence; Z98.49 Cataract extraction status, unspecified eye; Z90.49 Acquired absence of other specified parts of digestive tract; Z79.84 Long term (current) use of oral hypoglycemic drugs; Z79.899 Other long term (current) drug therapy; Z68.24 Body mass index [BMI] 24.0-24.9, adult
CPT/HCPCS: 0223U; 36415; 70450; 71045; 71250; 80048; 80053; 81001; 82550; 82948; 83036; 83605; 83690; 83735; 83880; 84100; 84443; 84484; 85025; 85610; 85730; 87040; 87071; 87086; 87205; 93005; 93306; 94640; 94799; 96372; 99284; J0696; J1100; J1650; J2060; J3486; J7050; J7512

== ENCOUNTER → 2023-05-03 | Day surgery (SDC) | payer MEDICARE ==
[~2023-05-03] MED LIST changes: +CEFDINIR300 MG PO; +GUAIFENESI100 MG/5 M PO; +LACTATED RINGER'S 1,000 ML ONE; +LIDOCAINE HCL 2% LOCAL INJ 5 ML SDV VIAL INJ ONE; +METOCLOPRAMIDE HCL 10 MG/2ML VIAL ONE; +PROPOFOL IV EMULSION 10 MG/ML 20 ML VIAL ONE
[2023-05-03 15:19] VITALS: TEMP 97
[2023-05-03 15:45] VITALS: BP 123/61; PULSE 67; RESP 16; O2SAT 96
== END | disposition home or self-care (01) ==
LOC: OR 14:27
PROVIDERS: ATTEND Internal Medicine Gastroenterology
DX: R63.4 Abnormal weight loss (principal); K29.50 Unspecified chronic gastritis without bleeding; K20.90 Esophagitis, unspecified without bleeding; K31.A11 Gastric intestinal metaplasia without dysplasia, involving the antrum; K44.9 Diaphragmatic hernia without obstruction or gangrene; Z71.3 Dietary counseling and surveillance; I69.891 Dysphagia following other cerebrovascular disease; M34.9 Systemic sclerosis, unspecified; J44.9 Chronic obstructive pulmonary disease, unspecified; E11.22 Type 2 diabetes mellitus with diabetic chronic kidney disease; I13.0 Hypertensive heart and chronic kidney disease with heart failure and stage 1 through stage 4 chronic kidney disease, or unspecified chronic kidney disease; I50.9 Heart failure, unspecified; N18.9 Chronic kidney disease, unspecified; R63.0 Anorexia; J84.113 Idiopathic non-specific interstitial pneumonitis; J31.1 Chronic nasopharyngitis; Z88.1 Allergy status to other antibiotic agents; Z79.84 Long term (current) use of oral hypoglycemic drugs; Z87.440 Personal history of urinary (tract) infections
CPT/HCPCS: 36415; 43239; 43450; 82948; 88305; 88342; J2001; J2765